=== PATIENT | male | born 1960 | race Caucasian/White ===

== ENCOUNTER 2017-12-22 13:43 | Inpatient (IN) | payer MEDICARE, MEDICAID ==
--- NOTE | 2017-12-22 14:25 | ED Physician Chart ---
ED Chief Complaint/HPI - Patient Information Date Seen:: 12/22/17 Time Seen:: 13:50 Chief Complaint:: Agitation History of Present Illness:: onset x 3 days of agitation and hostile behavior; no report of SIs, H/As, trauma , neck pain, C/P, SOB, Abd. Pain, fever, chills, A/N/V/D/C, or urinary s/s Allergies:: Allergies Allergy/AdvReac Type Severity Reaction Status Date / Time No Known Allergies Allergy Verified 05/31/16 16:44 Vitals:: Vital Signs - 8 hr 12/22/17 13:49 Temp 97.6 F HR 67 RR 16 BP 149/91 O2 Sat % 98 Historian:: Patient, EMS Review:: Nurse's Note Reviewed, EMS run form Reviewed ED Review of Systems - Review of Systems General/Constitutional: No fever, No chills, No weight loss, No weakness, No diaphoresis, No edema, No loss of appetite Skin: No skin lesions, No rash, No bruising Head: No headache, No light-headedness Eyes: No loss of vision, No pain, No diplopia ENT: No earache, No nasal drainage, No sore throat, No tinnitus Neck: No neck pain, No swelling, No thyromegaly, No stiffness, No mass noted Cardio Vascular: No chest pain, No palpitations, No PND, No orthopnea, No edema Pulmonary: No SOB, No cough, No sputum, No wheezing GI: No nausea, No vomiting, No diarrhea, No pain, No melena, No hematochezia, No constipation, No hematemesis G/U: No dysuria, No frequency, No hematuria, No nacturia Musculoskeletal: No bone or joint pain, No back pain, No muscle pain Endocrine: No polyuria, No polydipsia Psychiatric: Prior psych history, No depression, No anxiety, No suicidal ideation, No homicidal ideation, Auditory hallucination, No visual hallucination Hematopoietic: No bruising, No lymphadenopathy Allergic/Immuno: No urticaria, No angioedema Neurological: No syncope, No focal symptoms, No weakness, No paresthesia, No headache, No seizure, No dizziness, No confusion, No vertigo ED Past Medical History - Past Medical History Obtainable: Yes Past Medical History: HTN, DM, Dyslipidemia, PUD/GERD, Dementia Family History: Diabetes Melitus, HTN Social History: Non Smoker, No Alcohol, No Drug Use, Single, Care Facility Surgical History: None Psychiatricy History: Schizophrenia, Bipolar, Dementia Medication: Reviewed Family Medical History - Family Member Mother History Unknown: Yes Ethnicity: Unknown Living Status: Unknown ED Physical Exam - Physical Examination General/Constitutional: Awake, Well-developed, well-nourished, Alert, No distress, GCS 15, Non-toxic appearing, Ambulatory Head: Atraumatic Eyes: Lids, conjuctiva normal, PERRL, EOMI Skin: Nl inspection, No rash, No skin lesions, No ecchymosis, Well hydrated, No lymphadenopathy ENMT: External ears, nose nl, TM canals nl, Nasal exam nl, Lips, teeth, gums nl , Oropharynx nl, Tonsils nl Neck: Nontender, Full ROM w/o pain, No JVD, No nuchal rigidity, No bruit, No mass, No stridor Respiratory: Nl effort/Exclusion, Clear to Auscultation, No Wheeze/Rhonchi/Rales Cardio Vascular: RRR, No murmur, gallop, rubs, NL S1 S2, Carotid/Femoral/Distal pulses equal bilaterally GI: No tenderness/rebounding/guarding, No organomegaly, No hernia, Normal BS's, Nondistended, No mass/bruits, No McBurney tenderness : No CVA tenderness Extremities: No tenderness or effusion, Full ROM, normal strength in all extremities, No edema, Normal digits & nails Neuro/Psych: DTR's symmetric, Normal sensory exam, Normal motor strength, Mood normal, Normal gait, No focal deficits Other Neuro/Psych comments:: + Psychomotor Agitation; no SIS; Disoriented and Confused Misc: Normal back, No paraspinal tenderness ED Labs/Radiology/EKG Results - Lab Results Comments:: Glucose: 291; Na+: 130 - EKG Interpretations EKG Time:: 14:41 Rate & Rhythm: 72; NSR Comments:: LAD; non-specific st-t changes ED Septic Shock - . Is Septic Shock (SBP<90, OR Lactate>4 mmol\L) present?: No - <6hrs of presentation: Vital Signs: Vital Signs - 8 hr 12/22/17 13:49 Temp 97.6 F HR 67 RR 16 BP 149/91 O2 Sat % 98 ED Reassessment (Disposition) - Reassessment Reassessment Condition:: Improved - Diagnosis Diagnosis:: Hyperglycemia; Agitation; Bipolar Disorder; Hyponatremia; DM; Affective Disorder - Aftercare/Follow up Instructions Aftercare/Follow-Up Instructions:: Counseled pt regarding lab results/diagnosis & need follow up, Counseled pt & family regarding lab results/diagnosis & need follow up - Patient Disposition Discharge/Transfer:: Acute Care w/in this hosp Admitted to:: [facility] Condition at Disposition:: Stable, Improved ED Discharge Plan - Patient Disposition Admit/Discharge/Transfer: Acute Care w/in this hosp Condition at Disposition: Stable
[2017-12-22 14:49] LABS: URINE SOURCE CLEAN C
[2017-12-22 14:57] LABS: % BASOPHILS 0.3 % (0.0-2.0); % EOSINOPHILS 2.3 % (0.0-5.0); % LYMPHOCYTES 29.3 % (20.0-50.0); % MONOCYTES 14.2 % (2.0-10.0); % NEUTROPHILS 53.9 % (40.0-80.0); EOSINOPHILE ABSOLUTE 0.2 Th/cmm (0.1-0.4); HEMATOCRIT 44.8 % (41.0-60); LYMPHOCYTE ABSOLUTE 1.9 Th/cmm (1.5-3.0); MEAN CELL VOLUME 93.1 fl (80-99); MEAN CORPUSCULAR HEMOGLOBIN 31.1 pg (26.0-30.0); MEAN CORPUSCULAR HGB CONC 33.4 pg (28.0-36.0); MEAN PLATELET VOLUME 7.1 fl; MONOCYTE ABSOLUTE 0.9 Th/cmm (0.3-1.0); NEUTROPHILE ABSOLUTE 3.6 Th/cmm (1.8-8.0); RED BLOOD COUNT 4.81 Mil/cmm (4.30-5.70); RED CELL DISTRIBUTION WIDTH 13.2 % (11.5-20.0); WHITE BLOOD COUNT 6.6 Th/cmm (4.8-10.8)
[2017-12-22 15:10] LABS: PLATELET COUNT 146 Th/cmm (150-400)
[2017-12-22 15:13] LABS: URINE BILIRUBIN NEGATIVE (NEGATIVE); URINE BLOOD NEGATIVE (NEGATIVE); URINE GLUCOSE (UA) >=1000 mg/dL (NEGATIVE); URINE KETONE 15 mg/dL (NEGATIVE); URINE LEUKOCYTE ESTERASE NEGATIVE (NEGATIVE); URINE NITRATE NEGATIVE (NEGATIVE); URINE PH 6.5 (4.6 - 8.0); URINE PROTEIN NEGATIVE (NEGATIVE); URINE UROBILINOGEN 0.2 E.U./dL (0.2 - 1.0)
[2017-12-22 15:17] LABS: ACETAMINOPHEN < 10.0 ug/mL (10.0-30.0); ALB/GLOB RATIO 1.1 (1.0-1.8); ALBUMIN 3.7 gm/dL (4.2-5.5); ALKALINE PHOSPHATASE 56 U/L (34-104); ANION GAP 11.6 (7.0-16.0); BILIRUBIN,TOTAL 0.5 mg/dL (0.3-1.0); BUN - UREA NITROGEN 8 mg/dL (7-25); CALCIUM SERUM 9.4 mg/dL (8.6-10.3); CARBON DIOXIDE 27.1 mEq/L (21.0-31.0); CHLORIDE 96 mEq/L (98-107); CHOLESTEROL 105 mg/dL (<200); CREATININE - SERUM 0.6 mg/dL (0.7-1.3); GFR AFRICAN-AMERICAN > 60.0 ml/min (>90); GFR NON AFRICAN-AMERICAN > 60.0 ml/min; GLUCOSE 291 mg/dL (70-105); HDL -HIGH DENSITY LIPOPROTEIN 39 mg/dL (23-92); POTASSIUM SERUM 4.7 mEq/L (3.5-5.1); SGOT 16 U/L (13-39); SGPT/ALT 13 U/L (7-52); SODIUM SERUM 130 mEq/L (136-145); TRIGLYCERIDES 101 mg/dL (<150)
[2017-12-22 15:20] LABS: SALICYLATES (ASPIRIN) < 25.0 mg/L (30.0-100.0)
[2017-12-22 15:22] LABS: AMPHETAMINE URINE NEGATIVE (NEGATIVE); BARBITURATES URINE NEGATIVE (NEGATIVE); BENZODIAZEPINES QUAL URINE NEGATIVE (NEGATIVE); CANNABINOID THC NEGATIVE (NEGATIVE); COCAINE METABOLITE QUAL URINE NEGATIVE (NEGATIVE); METHADONE URINE NEGATIVE (NEGATIVE); METHAMPHETAMINES QUAL URINE NEGATIVE (NEGATIVE); OPIATES (MORPHINE) QUAL. URINE NEGATIVE (NEGATIVE); PHENCYCLIDINE (PCP) URINE NEGATIVE (NEGATIVE); TRICYCLICS (TCA) QUAL. URINE NEGATIVE (NEGATIVE)
[2017-12-22 15:51] LABS: URINE COLOR YELLOW
[2017-12-22 15:53] LABS: URINE MICROSCOPIC INDICATED? YES
[2017-12-22 15:57] LABS: URINE CLARITY HAZY (CLEAR)
[2017-12-22 15:58] LABS: URINE BACTERIA FEW /hpf (NONE SEEN); URINE EPITHELIAL CELLS OCCASIONAL /lpf (FEW); URINE RBC 0-2 /hpf (0-5)
[2017-12-22] MEDS ORDERED: INSULIN ASPART, RECOMBINANT 100 UNITS/ML SUBQ ONE (17:00)
[2017-12-22 17:14] VITALS: BP 143/97
[2017-12-22] MEDS ORDERED: Magnesium Hydroxide (MOM) 30 mL UDC PO PRN (17:14)
[2017-12-22] MEDS ORDERED: Maalox 30 mL Cup PO PRN (17:14)
[2017-12-22 19:32] LABS: A1C % 9.1 % (4.0-6.0)
[2017-12-22] MEDS: INSULIN ASPART SLIDING SCALE 100 UNITS/ML UNIT SUBQ SCH (20:38)
[2017-12-23] MEDS: INSULIN ASPART SLIDING SCALE 100 UNITS/ML UNIT SUBQ SCH ×4 (06:30→21:07)
[2017-12-23] MEDS ORDERED: Magnesium Hydroxide (MOM) 30 mL UDC PO PRN (09:28)
--- NOTE | 2017-12-23 10:30 | History & Physical ---
ADMIT DATE: 12/23/2017 INTERNAL MEDICINE CONSULT REFERRING PHYSICIAN: Dr. Franz. REASON FOR CONSULT: Medical management, history of diabetes, hypertension, hyperlipidemia, seizures, CVA. HISTORY OF PRESENT ILLNESS: The patient is a 57-year-old gentleman who has been admitted to this facility in the past with multiple medical problems including a history of CVA/aneurysm, seizure disorder, dementia, likely vascular, diabetes, hyperlipidemia, and generalized muscle weakness who was transferred from [facility] secondary to agitation and aggressive behavior. PERTINENT FINDINGS ON ADMISSION: Include a sodium of 130, glucose of 291 with A1c of 9.1. UA also showed glucose with some ketones, but was negative for UTI. The patient has been [facility] for management and care. The patient is able to answer simple questions and is currently not agitated. He is somewhat forgetful, but again is able to answer basic questions. He currently denies any chest pain, palpitations, any shortness of breath or any headaches. PAST MEDICAL HISTORY: As noted above, subarachnoid hemorrhage as noted above, major depressive disorder, previous history of thrombocytopenia per records. Vascular dementia with behavioral disturbance, also history of diabetes mellitus with previous ketoacidosis, acid reflux disease, chronic hyponatremia and hypothyroidism. PAST SURGICAL HISTORY: Includes craniotomy. FAMILY HISTORY: Noncontributory to this admission. SOCIAL HISTORY: Denies any tobacco, ETOH or illicit drug usage. He currently lives at [facility]. ALLERGIES: NKDA. OUTPATIENT MEDICATIONS: Depakote 750 b.i.d., docusate sodium 100 mg b.i.d., Pepcid 20 mg every day, Levemir 30 units at bedtime and 40 units in the morning, Lipitor 40 every day or at bedtime, lisinopril 5 mg every day, Glucophage 50 three times a day, magnesium hydroxide p.r.n. for constipation, Seroquel 50 mg every day, sodium chloride tablet 1 gram 3 times a day, Synthroid 88 mcg every day, Tylenol 650 every 4 hours p.r.n. for pain. REVIEW OF SYSTEMS: CONSTITUTIONAL: The patient denies any fever, chills, any recent weight loss. CARDIOVASCULAR: He denies any angina type or angina chest pain. PULMONARY: No cough, no phlegm production. GASTROINTESTINAL: No bowel habit changes including no diarrhea or constipation. Denies any nausea, vomiting. GENITOURINARY: No bladder habit changes including no polyuria or UTI symptomatology. NEUROLOGIC: No changes in vision. Denies any headaches. Denies any syncope. MUSCULOSKELETAL: States he was left somewhat weakened after the stroke, but currently states he can do "everything." Ambulates around with no difficulty. PHYSICAL EXAMINATION: VITAL SIGNS: Temperature 96.2, pulse 77, respirations 20, BP 143/97, satting 98% on room air. GENERAL: He is a well-developed, well-nourished male, somewhat groggy and somnolent, but able to answer questions appropriately. He is currently sitting at the dinner table. He is arousable, awake, alert and oriented x 2. HEAD AND NECK: Normocephalic, atraumatic. Pupils reactive to light. NECK: There is no JVD or LAD. CARDIAC: Regular rate and rhythm with distant sounds. No murmurs, gallops or rubs are noted. LUNGS: Clear to auscultation bilaterally. ABDOMEN: Soft, supple, nontender, nondistended, normoactive bowel sounds. EXTREMITIES: Lower Extremities: There is trace edema on both lower extremities. NEUROLOGIC: Difficult to assess, but cranial nerves 2-12 roughly within normal limits. LABORATORY DATA: White count 6.6, H and H 15/44 with a platelet count of 146. Sodium 130, potassium 4.7, chloride 96, BUN 8, creatinine 0.6, glucose 291. A1c is 9.1. Rest of the chemistries were within normal limits. Albumin 3.7, LDL 55, HDL 39, cholesterol 105, triglycerides 101. TSH 1.31. A urinalysis shows positive for glucose and ketones, otherwise within normal limits. Urine tox was essentially within normal limits. DIAGNOSTICS: There was an EKG showing normal sinus rhythm at the rate of 72. IMPRESSION: 1. Acute psych decompensation. 2. History of vascular dementia with behavioral disorder. 3. History of CVA/subarachnoid hemorrhage, status post craniotomy. 4. Diabetes, out of control/elevated HgA1c. 5. Chronic hyponatremia. 6. History of seizure disorder. 7. History of hyperlipidemia. 8. History of generalized muscle weakness with gait and mobility disorder. 9. History of major depressive disorder. 10. Hypertension. PLAN: The patient is admitted to [facility] for further management and care. He will be kept on his current medications as scheduled. I have talked to the patient in regards to his lab results including his elevated A1c and he is agreeable for insulin adjustment. The patient will be kept on insulin sliding scale with Accu-Cheks and he will be followed on a daily basis. As far as his hypertension, he will be kept on lisinopril 5 mg every day. If need be it will be increased. JOB# [id number] MTDD
[2017-12-23] MEDS: Multivitamin Tab PO SCH (11:54)
[2017-12-23] MEDS: Divalproex DR 500 MG, Divalproex DR 250 MG PO SCH ×2 (11:55→16:33)
--- NOTE | 2017-12-24 00:24 | Psychosocial Evaluation ---
DATE OF SERVICE: 12/22/2017 CHIEF COMPLAINT: "I am fine." HISTORY OF PRESENT ILLNESS: The patient is a 57-year-old male with a history of schizoaffective disorder, transferred from his [place] [facility] facility for increased agitation, anger outburst, having yelling episodes, becoming difficult to redirect, attempting to hit other residents. The patient at this time denied feeling depressed, he said he has been taking his medications, did not want to answers to many questions said he was having lunch. PAST PSYCHIATRIC HISTORY: Multiple hospitalizations, history of bipolar disorder, possible schizoaffective disorder. CURRENT MEDICATION: Reviewed. PSYCHOSOCIAL HISTORY: The patient resides at [facility] and requires complete care. PAST MEDICAL HISTORY: Medically cleared in ER. Refer to H and P. MENTAL STATUS EXAMINATION: The patient is oriented to time, place and person, knows his age. His speech is rapid at times. Affect is dysphoric, labile. The patient appears to have somewhat paranoid, but is denying auditory hallucinations. The patient's strength: The patient is accepting treatment. The patient's weakness, lack of a poor impulse control. ASSESSMENT: Bipolar disorder. MEDICAL: As in medical history. Stressors are severe. PLAN: We will admit the patient for hospitalization. We will start individual and group therapy and assess psychopharmacological intervention. ESTIMATED LENGTH OF STAY: 7 days. CRITERIA FOR DISCHARGE: Improved condition. Safe disposition, outpatient treatment plan. The patient will not be aggressive or agitated. [facility]# [id number]
[2017-12-24] MEDS: INSULIN ASPART SLIDING SCALE 100 UNITS/ML UNIT SUBQ SCH ×4 (06:45→20:49)
[2017-12-24] MEDS: Levothyroxine 0.088 Mg Tab PO SCH (06:46)
[2017-12-24] MEDS: Divalproex DR 500 MG, Divalproex DR 250 MG PO SCH ×2 (09:37→17:49)
[2017-12-24] MEDS: Multivitamin Tab PO SCH (09:38)
--- NOTE | 2017-12-24 19:09 | Progress Notes ---
DATE: 12/24/2017 SUBJECTIVE: The patient was seen, discussed with staff, chart reviewed. Still superficial; however, he continues to have some anger outburst. He remains paranoid, suspicious surroundings. The patient is taking his medication at this time. His appetite and sleep are fair. ASSESSMENT: The patient in psychotic phase, still labile and continues to have some anger outburst. PLAN: Continue stabilization, continue hospitalization and monitor closely. JOB# [id number]
[2017-12-25] MEDS: INSULIN ASPART SLIDING SCALE 100 UNITS/ML UNIT SUBQ SCH ×4 (06:30→21:21)
[2017-12-25] MEDS: Levothyroxine 0.088 Mg Tab PO SCH (06:41)
[2017-12-25] MEDS: Multivitamin Tab PO SCH (09:01)
[2017-12-25] MEDS: Divalproex DR 500 MG, Divalproex DR 250 MG PO SCH ×2 (09:01→17:19)
[2017-12-25] MEDS ORDERED: Haloperidol Lactate 5 mg/mL 1mL Vial ONE (11:49)
[2017-12-25] MEDS ORDERED: Haloperidol Lactate 5 mg/mL 1mL Vial IM ONE (12:00)
--- NOTE | 2017-12-25 22:30 | Progress Notes ---
DATE: 12/25/2017 SUBJECTIVE: The patient was seen, still paranoid, angry, still easily agitated, continues to have some anger outburst. The patient required being given emergency medications for yelling and striking other patients. ASSESSMENT: The patient is still impulsive, still agitated, still requires inpatient hospitalization. PLAN: We will continue to monitor closely. Continue supportive measures. Continue medication management. JOB# [id number]
[2017-12-26] MEDS: INSULIN ASPART SLIDING SCALE 100 UNITS/ML UNIT SUBQ SCH ×4 (06:42→22:29)
[2017-12-26] MEDS: Levothyroxine 0.088 Mg Tab PO SCH (06:49)
[2017-12-26] MEDS: Divalproex DR 500 MG, Divalproex DR 250 MG PO SCH ×2 (08:37→17:06)
[2017-12-26] MEDS: Multivitamin Tab PO SCH (08:38)
[2017-12-26] MEDS ORDERED: Haloperidol Lactate 5 mg/mL 1mL Vial ONE (13:05)
[2017-12-26] MEDS ORDERED: Haloperidol Lactate 5 mg/mL 1mL Vial IM ONE (13:10)
--- NOTE | 2017-12-26 20:30 | Progress Notes ---
DATE: 12/26/2017 SUBJECTIVE: The patient was seen, chart reviewed. Still anxious, angry, still irritable, having some anger outbursts. The patient remains highly paranoid and is hearing voices at times. ASSESSMENT: The patient still in psychotic phase. PLAN: Will continue stabilization. Continue medication management. We will increase Seroquel to 100 mg p.o. at bedtime. [facility]# [id number]
[2017-12-27] MEDS: INSULIN ASPART SLIDING SCALE 100 UNITS/ML UNIT SUBQ SCH ×4 (06:35→21:41)
[2017-12-27] MEDS: Levothyroxine 0.088 Mg Tab PO SCH (06:40)
[2017-12-27] MEDS: Divalproex DR 500 MG, Divalproex DR 250 MG PO SCH ×2 (10:00→17:10)
[2017-12-27] MEDS: Multivitamin Tab PO SCH (10:00)
--- NOTE | 2017-12-27 15:18 | Progress Notes ---
DATE: 12/27/2017 SUBJECTIVE: The patient was seen, chart reviewed. Still angry, irritable, some episodes of yelling at staff for no apparent reason, admits hearing voices. The patient is taking his medications, appears to be slightly sedated at this time, has slight sedation, but no EPS. ASSESSMENT: The patient continues to be in psychotic phase. PLAN: Continue hospitalization and monitor closely. Continue supportive measures. Monitor for increased sedation. [facility]# [id number]
[2017-12-28] MEDS: INSULIN ASPART SLIDING SCALE 100 UNITS/ML UNIT SUBQ SCH ×4 (06:33→21:15)
[2017-12-28] MEDS: Levothyroxine 0.088 Mg Tab PO SCH (06:33)
[2017-12-28] MEDS: Divalproex DR 500 MG, Divalproex DR 250 MG PO SCH ×2 (09:31→17:21)
[2017-12-28] MEDS: Multivitamin Tab PO SCH (09:32)
--- NOTE | 2017-12-28 15:10 | Progress Notes ---
DATE: 12/28/2017 SUBJECTIVE: I met this patient today. Remains irritable, still having anger outburst, some agitation, some yelling episodes. The patient continues to struggle with impulse control, admits to having auditory hallucinations. ASSESSMENT: The patient is still in psychotic phase. PLAN: Continue stabilization. Continue medication management. Continue Seroquel 100 mg p.o. bedtime. Consider increasing dose further more over the next 1-2 days. The patient is also on Depakote 750 mg p.o. b.i.d. JOB# [id number]
[2017-12-29] MEDS: Levothyroxine 0.088 Mg Tab PO SCH (06:46)
[2017-12-29] MEDS: INSULIN ASPART SLIDING SCALE 100 UNITS/ML UNIT SUBQ SCH ×4 (06:46→20:50)
[2017-12-29] MEDS: Divalproex DR 500 MG, Divalproex DR 250 MG PO SCH ×2 (09:41→17:43)
[2017-12-29] MEDS: Multivitamin Tab PO SCH (09:43)
--- NOTE | 2017-12-29 22:21 | Progress Notes ---
DATE: 12/29/2017 SUBJECTIVE: Staff was spoken to. The patient is interviewed. Mood is noted to be irritable. Affect is constricted. Insight and judgment at this time are noted to be impaired. Impulse control seems to be poor. The patient's coping skills are noted to very poor. The patient is isolative and withdrawn. No side effects to the medications are noted. The patient is currently on Depakote 750 mg twice a day along with Seroquel 100 mg at bedtime. The patient is stating that the medications are of some help to him. Continues to have paranoia, but denies any command hallucinations. No side effects to the medications are noted. ASSESSMENT: The patient is still having mood swings. PLAN: To continue the patient with the current medications and encourage the patient to verbalize the concerns rather than to act out. JOB# [id number]
[2017-12-30] MEDS: Levothyroxine 0.088 Mg Tab PO SCH (06:53)
[2017-12-30] MEDS: INSULIN ASPART SLIDING SCALE 100 UNITS/ML UNIT SUBQ SCH ×4 (06:56→20:27)
[2017-12-30] MEDS: Divalproex DR 500 MG, Divalproex DR 250 MG PO SCH ×2 (09:47→16:35)
[2017-12-30] MEDS: Multivitamin Tab PO SCH (09:48)
[2017-12-30] MEDS: Insulin Detemir 100 units/mL 10mL Vial SUBQ SCH (10:38)
--- NOTE | 2017-12-31 02:50 | Progress Notes ---
DATE: 12/30/2017 PSYCHIATRIC PROGRESS NOTE SUBJECTIVE: Staff was spoken to. The patient is interviewed. Mood is noted to be less irritable. The patient is isolative and withdrawn. Coping skills are noted to be improving. The patient's mood swings are coming under control. No side effects to medications are noted. The patient is currently on Depakote and the Seroquel and has been able to tolerate the medication. ASSESSMENT: The patient's psychosis is resolving. PLAN: To continue the patient with the current medications. I encouraged the patient to verbalize the concerns rather than to act out. JOB# [id number]
[2017-12-31] MEDS: INSULIN ASPART SLIDING SCALE 100 UNITS/ML UNIT SUBQ SCH ×4 (06:33→21:40)
[2017-12-31] MEDS: Levothyroxine 0.088 Mg Tab PO SCH (06:34)
[2017-12-31] MEDS: Divalproex DR 500 MG, Divalproex DR 250 MG PO SCH ×2 (09:15→16:51)
[2017-12-31] MEDS: Multivitamin Tab PO SCH (09:16)
[2017-12-31] MEDS: Insulin Detemir 100 units/mL 10mL Vial SUBQ SCH (09:17)
--- NOTE | 2017-12-31 15:24 | Progress Notes ---
DATE: 12/31/2017 SUBJECTIVE: Staff was spoken to. The patient is interviewed. Mood is noted to be irritable. Affect is constricted. The patient is getting easily frustrated. The patient has been currently on valproic acid 750 mg b.i.d. and Seroquel 100 mg at bedtime and has been able to tolerate the medication. No side effects to the medications are noted. ASSESSMENT: The patient is here yanes and impulsive today. PLAN: To continue the patient with the current medications and followup. JOB# [id number]
[2018-01-01] MEDS: INSULIN ASPART SLIDING SCALE 100 UNITS/ML UNIT SUBQ SCH ×4 (06:30→20:55)
[2018-01-01] MEDS: Levothyroxine 0.088 Mg Tab PO SCH (06:30)
[2018-01-01] MEDS: Multivitamin Tab PO SCH (08:28)
[2018-01-01] MEDS: Divalproex DR 500 MG, Divalproex DR 250 MG PO SCH ×2 (08:29→16:33)
[2018-01-01] MEDS: Insulin Detemir 100 units/mL 10mL Vial SUBQ SCH ×2 (08:31→20:56)
--- NOTE | 2018-01-02 03:40 | Progress Notes ---
DATE: 01/01/2018 PSYCHIATRIC PROGRESS NOTE SUBJECTIVE: Staff was spoken to. Patient is interviewed. Mood is noted to be irritable. Affect is constricted. The patient is unpredictable and has been getting out of the bed, screaming and yelling with no provocation, then the patient calms down. The patient is not able to contract for safety today and hence he is not able to be discharged to a lower level of care. The patient is currently on 750 mg of Depakote and I am going to be requesting for a Depakote level. Staffs are spoken to and they have been informed about the blood work that needs to be done tomorrow morning. JOB# [id number]
[2018-01-02] MEDS: Levothyroxine 0.088 Mg Tab PO SCH (06:39)
[2018-01-02] MEDS: INSULIN ASPART SLIDING SCALE 100 UNITS/ML UNIT SUBQ SCH ×4 (07:02→21:13)
[2018-01-02] MEDS: Divalproex DR 500 MG, Divalproex DR 250 MG PO SCH ×2 (09:13→16:28)
[2018-01-02] MEDS: Multivitamin Tab PO SCH (09:14)
[2018-01-02] MEDS: Insulin Detemir 100 units/mL 10mL Vial SUBQ SCH (21:11)
--- NOTE | 2018-01-03 03:20 | Progress Notes ---
DATE: 01/02/2018 SUBJECTIVE: Staff was spoken to. The patient is interviewed. Mood is noted to be irritable. Affect is constricted. Coping skills are noted to be still poor. The patient is screaming and yelling for no reason. The patient has no insight into his illness. PLAN: The patient is currently on Depakote and Seroquel and has been able to tolerate the medications. Valproic acid level is noted to be 64.7. In view of his agitation and psychosis, it is decided to increase the dose on the Seroquel to 150 mg at bedtime and follow the patient up with supportive therapy. JOB# [id number]
[2018-01-03] MEDS: Levothyroxine 0.088 Mg Tab PO SCH (06:49)
[2018-01-03] MEDS: INSULIN ASPART SLIDING SCALE 100 UNITS/ML UNIT SUBQ SCH ×4 (06:50→21:03)
[2018-01-03] MEDS: Multivitamin Tab PO SCH (08:50)
[2018-01-03] MEDS: Divalproex DR 500 MG, Divalproex DR 250 MG PO SCH ×2 (08:50→17:18)
[2018-01-03] MEDS: Insulin Detemir 100 units/mL 10mL Vial SUBQ SCH (21:05)
--- NOTE | 2018-01-03 22:02 | Progress Notes ---
DATE: 01/03/2018 SUBJECTIVE: Staff was spoken to. The patient is interviewed. Mood is noted to be irritable. Affect is constricted. Insight and judgment are noted to be still impaired. Impulse control seems to be poor. The patient has been screaming and yelling and has been going off on the staff members. The patient could not be contained at this time. The patient has been currently on Seroquel, which was increased to 150 mg at bedtime and the patient is closely going to be monitored at this time. If the patient continues to be out of control like this patient might need an injection to contain his aggressive behavior. PLAN: To closely monitor the patient. I encourage him to verbalize the concerns rather than to act out. The patient is not ready to be discharged to a lower level of care yet. JOB# [id number]
[2018-01-04] MEDS: Levothyroxine 0.088 Mg Tab PO SCH (06:43)
[2018-01-04] MEDS: INSULIN ASPART SLIDING SCALE 100 UNITS/ML UNIT SUBQ SCH ×4 (06:44→21:09)
[2018-01-04] MEDS: Divalproex DR 500 MG, Divalproex DR 250 MG PO SCH ×2 (09:20→16:42)
[2018-01-04] MEDS: Multivitamin Tab PO SCH (09:20)
[2018-01-04] MEDS: Insulin Detemir 100 units/mL 10mL Vial SUBQ SCH (21:06)
[2018-01-05] MEDS: INSULIN ASPART SLIDING SCALE 100 UNITS/ML UNIT SUBQ SCH ×2 (06:41→12:05)
[2018-01-05] MEDS: Levothyroxine 0.088 Mg Tab PO SCH (06:41)
[2018-01-05] MEDS: Divalproex DR 500 MG, Divalproex DR 250 MG PO SCH (08:44)
[2018-01-05] MEDS: Multivitamin Tab PO SCH (08:44)
--- NOTE | 2018-01-06 01:09 | Progress Notes ---
DATE: 01/05/2018 PSYCHIATRIC PROGRESS NOTE SUBJECTIVE: Staff was spoken to. The patient is interviewed. Mood is noted to be anxious. Affect is appropriate. Impulsivity is under control. Insight and judgment are also noted to be under control. No side effects to the medications are noted. The patient has been able to tolerate the valproic acid and Seroquel and it is decided to discharge the patient today since he has been doing fairly well. [facility]# [id number]
== END 2018-01-05 14:11 | disposition home or self-care (01) | DRG 885 ==
LOC: ER 13:43 → GERO 16:28
PROVIDERS: ADMIT Psychiatry & Neurology Psychiatry; ATTEND Psychiatry & Neurology Psychiatry
DX: F31.9 Bipolar disorder, unspecified (principal); F01.51 Vascular dementia, unspecified severity, with behavioral disturbance; E11.65 Type 2 diabetes mellitus with hyperglycemia; E87.1 Hypo-osmolality and hyponatremia; F23 Brief psychotic disorder; G40.909 Epilepsy, unspecified, not intractable, without status epilepticus; E78.5 Hyperlipidemia, unspecified; R26.9 Unspecified abnormalities of gait and mobility; I10 Essential (primary) hypertension; K21.9 Gastro-esophageal reflux disease without esophagitis; E03.9 Hypothyroidism, unspecified; R45.1 Restlessness and agitation; Z86.73 Personal history of transient ischemic attack (TIA), and cerebral infarction without residual deficits
CPT/HCPCS: 36415-UA; 80053-TC; 80061-TC; 80164-TC; 80307; 80320-TC; 80329-TC; 81001-TC; 82947-TC; 82948-90; 83036-90; 84443-TC; 85025-TC; 86592-TC; 90899; 93005; G0410; J1200; J1630; J1815; J2060; Z7610

== ENCOUNTER 2018-03-12 17:18 | Inpatient (IN) | payer MEDICARE, MEDICAID ==
--- NOTE | 2018-03-12 17:44 | ED Physician Chart ---
ED Chief Complaint/HPI - Patient Information Date Seen:: 03/12/18 Time Seen:: 17:35 Chief Complaint:: increased agitation History of Present Illness:: Patient has exhibited increased agitation and has attempted to strike the staff. Allergies:: Allergies Allergy/AdvReac Type Severity Reaction Status Date / Time No Known Allergies Allergy Verified 05/31/16 16:44 Historian:: Patient Review:: Nurse's Note Reviewed, Transfer documents Reviewed ED Review of Systems - Review of Systems General/Constitutional: No fever, No chills, No weight loss, No weakness, No diaphoresis, No edema, No loss of appetite Skin: No skin lesions, No rash, No bruising Head: No headache, No light-headedness Eyes: No loss of vision, No pain, No diplopia ENT: No earache, No nasal drainage, No sore throat, No tinnitus Neck: No neck pain, No swelling, No thyromegaly, No stiffness, No mass noted Cardio Vascular: No chest pain, No palpitations, No PND, No orthopnea, No edema Pulmonary: No SOB, No cough, No sputum, No wheezing GI: No nausea, No vomiting, No diarrhea, No pain, No melena, No hematochezia, No constipation, No hematemesis G/U: No dysuria, No frequency, No hematuria Musculoskeletal: No bone or joint pain, No back pain, No muscle pain Endocrine: No polyuria, No polydipsia Psychiatric: Prior psych history Hematopoietic: No bruising, No lymphadenopathy Allergic/Immuno: No urticaria, No angioedema Neurological: No syncope, No focal symptoms, No weakness, No paresthesia, No headache, No seizure, No dizziness, No confusion, No vertigo ED Past Medical History - Past Medical History Past Medical History: HTN, DM, Dyslipidemia, PUD/GERD, Seizures, Thyroid disorder, Other (status post subarachnoid hemorrhage; hypothyroidism; lipidemia gastroesophageal reflux disease; cholesterolemia; vascular dementia; major depression;, cytopenia) Family History: Diabetes Melitus, Other (both parents had heart disease) Social History: Non Smoker, No Alcohol Surgical History: other (craniotomy) Psychiatricy History: Other (psychosis) Medication: Reviewed Family Medical History - Family Member Mother History Unknown: Yes Ethnicity: Unknown Living Status: Unknown ED Physical Exam - Physical Examination General/Constitutional: Awake, Well-developed, well-nourished, Alert, No distress, GCS 15, Non-toxic appearing, Ambulatory Other Gen/Cons comments:: Patient is alert and oriented to the correct month and year but not the date. Head: Atraumatic Eyes: Lids, conjuctiva normal, PERRL, EOMI Skin: Nl inspection, No rash, No skin lesions, No ecchymosis, Well hydrated, No lymphadenopathy ENMT: External ears, nose nl, Nasal exam nl, Lips, teeth, gums nl Other ENMT comments:: Edentulous Neck: Nontender, Full ROM w/o pain, No JVD, No nuchal rigidity, No bruit, No mass, No stridor Respiratory: Nl effort/Exclusion Other Respiratory comments:: Basilar rales and end-inspiratory wheezing Cardio Vascular: RRR, No murmur, gallop, rubs, NL S1 S2 GI: No tenderness/rebounding/guarding, No organomegaly, No hernia, Normal BS's, Nondistended, No mass/bruits, No McBurney tenderness : No CVA tenderness Extremities: No tenderness or effusion, Full ROM, normal strength in all extremities, No edema, Normal digits & nails Neuro/Psych: Alert/oriented, DTR's symmetric, Normal sensory exam, Normal motor strength, Judgement/insight normal, Mood normal, Normal gait, No focal deficits Misc: Normal back, No paraspinal tenderness ED Labs/Radiology/EKG Results - Lab Results Results: Laboratory Results - last 24 hr 03/12/18 03/12/18 18:13 18:13 WBC 6.5 RBC 5.32 Hgb 16.3 Hct 50.1 MCV 94.1 MCH 30.6 H MCHC Differential 32.5 RDW 13.5 Plt Count 147 L MPV 7.4 Neutrophils % 42.7 Lymphocytes % 41.9 Monocytes % 11.4 H Eosinophils % 3.4 Basophils % 0.6 Sodium 137 Potassium 3.9 Chloride 102 Carbon Dioxide 24.6 Anion Gap 14.3 BUN 15 Creatinine 0.7 Est GFR ( Amer) > 60.0 Est GFR (Non-Af Amer) > 60.0 BUN/Creatinine Ratio 21.4 Glucose 56 L Calcium 9.8 Total Bilirubin 0.5 AST 14 ALT 11 Alkaline Phosphatase 58 Total Protein 7.9 Albumin 4.4 Globulin 3.5 Albumin/Globulin Ratio 1.3 Triglycerides 147 Cholesterol 140 LDL Cholesterol Direct 77 HDL Cholesterol 41 - EKG Interpretations Rate & Rhythm: normal sinus rhythm with a rate of 84 [place]: left axis deviation Comments:: Q waves in leads 3 and aVF ED Septic Shock - . Is Septic Shock (SBP<90, OR Lactate>4 mmol\L) present?: No ED Reassessment (Disposition) - Reassessment Reassessment Condition:: Unchanged - Diagnosis Diagnosis:: Agitation; major depression - Patient Disposition Admitting Medical Physician:: Marcello Spears Admitting Psych Physician:: Bertha Franz Condition at Disposition:: Stable, Unchanged
[2018-03-12 18:23] LABS: % BASOPHILS 0.6 % (0.0-2.0); % EOSINOPHILS 3.4 % (0.0-5.0); % LYMPHOCYTES 41.9 % (20.0-50.0); % MONOCYTES 11.4 % (2.0-10.0); % NEUTROPHILS 42.7 % (40.0-80.0); EOSINOPHILE ABSOLUTE 0.2 Th/cmm (0.1-0.4); HEMATOCRIT 50.1 % (41.0-60); HEMOGLOBIN 16.3 gm/dL (12-16); LYMPHOCYTE ABSOLUTE 2.7 Th/cmm (1.5-3.0); MEAN CELL VOLUME 94.1 fl (80-99); MEAN CORPUSCULAR HEMOGLOBIN 30.6 pg (26.0-30.0); MEAN CORPUSCULAR HGB CONC 32.5 pg (28.0-36.0); MEAN PLATELET VOLUME 7.4 fl; MONOCYTE ABSOLUTE 0.7 Th/cmm (0.3-1.0); NEUTROPHILE ABSOLUTE 2.9 Th/cmm (1.8-8.0); PLATELET COUNT 147 Th/cmm (150-400); RED BLOOD COUNT 5.32 Mil/cmm (4.30-5.70); RED CELL DISTRIBUTION WIDTH 13.5 % (11.5-20.0); WHITE BLOOD COUNT 6.5 Th/cmm (4.8-10.8)
[2018-03-12 18:41] LABS: ALB/GLOB RATIO 1.3 (1.0-1.8); ALBUMIN 4.4 gm/dL (4.2-5.5); ALKALINE PHOSPHATASE 58 U/L (34-104); ANION GAP 14.3 (7.0-16.0); BILIRUBIN,TOTAL 0.5 mg/dL (0.3-1.0); BUN - UREA NITROGEN 15 mg/dL (7-25); CALCIUM SERUM 9.8 mg/dL (8.6-10.3); CARBON DIOXIDE 24.6 mEq/L (21.0-31.0); CHLORIDE 102 mEq/L (98-107); CHOLESTEROL 140 mg/dL (<200); CREATININE - SERUM 0.7 mg/dL (0.7-1.3); GFR AFRICAN-AMERICAN > 60.0 ml/min (>90); GFR NON AFRICAN-AMERICAN > 60.0 ml/min; GLUCOSE 56 mg/dL (70-105); HDL -HIGH DENSITY LIPOPROTEIN 41 mg/dL (23-92); POTASSIUM SERUM 3.9 mEq/L (3.5-5.1); SGOT 14 U/L (13-39); SGPT/ALT 11 U/L (7-52); SODIUM SERUM 137 mEq/L (136-145); TOTAL PROTEIN,SERUM 7.9 gm/dL (6.0-8.3); TRIGLYCERIDES 147 mg/dL (<150)
[2018-03-13 00:40] VITALS: BP 149/92
[2018-03-13] MEDS ORDERED: Maalox 30 mL Cup PO PRN (02:51)
[2018-03-13] MEDS ORDERED: Magnesium Hydroxide (MOM) 30 mL UDC PO PRN ×2 (02:51)
[2018-03-13] MEDS: Levothyroxine 0.088 Mg Tab PO SCH (06:49)
[2018-03-13] MEDS: INSULIN ASPART SLIDING SCALE 100 UNITS/ML UNIT SUBQ SCH ×3 (06:50→18:31)
[2018-03-13] MEDS ORDERED: Haloperidol Lactate 5 mg/mL 1mL Vial ONE (08:44)
[2018-03-13] MEDS ORDERED: Haloperidol Lactate 5 mg/mL 1mL Vial IM ONE (09:00)
--- NOTE | 2018-03-13 10:35 | History & Physical ---
ADMIT DATE: 03/13/2018 THE PATIENT'S ID: A 57-year-old male. CHIEF COMPLAINT: "I don't know why am I here." HISTORY OF PRESENT ILLNESS: A 57-year-old [place] male with history of type 2 diabetes, hypertension, hyperlipidemia, hypothyroidism, who resides in a long term, has been followed by myself and Dr. Flores, noted by nursing staff that the patient was extremely agitated, aggressive and not taking any medication. The patient was sent to Emergency Room for evaluation at [facility]. After being evaluated by Emergency Room MD, the patient has been admitted to the hospital for further treatment. PAST MEDICAL HISTORY: Remarkable for: 1. Diabetes. 2. Hypertension. 3. Hyperlipidemia. 4. DJD. 5. History of hemorrhagic stroke. 6. Peripheral vascular disease. 7. GERD. MEDICATIONS: At the long term has been reviewed and reconciled. PAST SURGICAL HISTORY: Remarkable for craniotomy for subarachnoid hemorrhage. FAMILY MEDICAL HISTORY: Remarkable for diabetes and hypertension. SOCIAL HISTORY: The patient currently resides in [facility]. The patient does not have any smoking cigarette, alcohol, or drug use. ALLERGIES: None. REVIEW OF SYSTEMS: The patient currently denies any headache, blurred vision, double vision, dysphagia, odynophagia, runny nose, stuffy nose, fever, chills, cough, chest pain, shortness of breath, palpitation, dizziness, nausea, vomiting, diarrhea, dysuria, hematuria, hematochezia, melena. No seizure or syncopal episode. PHYSICAL EXAMINATION: GENERAL: The patient is alert, awake, oriented, answering all the questions properly giving me appropriate history. VITAL SIGNS: Temperature 98, pulse is 88, respiratory rate 18, blood pressure 150/86. HEENT: Normocephalic. Craniotomy scar on the forehead area noted. Some indentation of the bile temporal area noted. Extraocular muscles are intact. Sclerae without any icterus. Pupils are equal and reactive to light. Tongue was pink and coated. Poor dentition noted. No oral lesion, no exudate. NECK: Supple, no JVD, no hepatojugular reflex. No lymphadenopathy, thyromegaly, or carotid bruit. HEART: Both heart sounds are regular. No S3, no S4, no murmur. CHEST AND LUNGS: Equal in expansion, no wheezing, no crackles. ABDOMEN: Soft. No guarding, no rigidity. Liver and spleen palpable. No palpable mass. EXTREMITIES: No edema, no cyanosis, no clubbing. Peripheral pulses +2. No calf tenderness noted. Evidence of onychomycosis on all toenails noted. NEUROLOGIC: Alert, awake, oriented to time, place, person. A 2-12 cranial nerves are intact. Power in upper or lower extremities 5-. Sensation to touch intact. Babinskis in both toes are going down. No cerebral sign. AVAILABLE DIAGNOSTIC DATA: Performed in the Emergency Room remarkable for white count of 6.5, hemoglobin 11.1, platelet count of 320. Sodium 131, potassium 3.5, chloride 95, BUN and creatinine is 15 and 0 0.7. Albumin of 3.8. Triglyceride 199, HDL of 55. TSH of 2.35. EKG has Q-waves in inferior leads, no ST-T change representing acute ischemia. CLINICAL IMPRESSION: 1. Psychotic disorder exacerbation. 2. Diabetes, longstanding most likely insulin requiring. 3. Hypertension. 4. Hypothyroidism. 5. Degenerative joint disease. 6. Hyperlipidemia. 7. History of hemorrhagic cerebrovascular accident. 8. Debility. PLAN: In the view patient has a longstanding diabetes, I will discontinue oral hypoglycemic agent and put the patient on Levemir in regular scheduled insulin with breakfast, lunch, and dinner, use sliding scale as well to control postprandial hyperglycemia. The patient will be placed on patient's home medication as well. The patient will be followed by myself during the stay in the hospital. I sincerely thank you, Dr. Franz for giving me the opportunity in participating in patient of yours. JOB# [id number]
[2018-03-13] MEDS: Multivitamin Tab PO SCH (12:31)
[2018-03-13] MEDS: Insulin Detemir 100 units/mL 10mL Vial SUBQ SCH (20:21)
[2018-03-13] MEDS ORDERED: Insulin Detemir 100 units/mL 10mL Vial SUBQ SCH (21:00)
--- NOTE | 2018-03-13 22:41 | Psychosocial Evaluation ---
DATE OF SERVICE: 03/13/2018 IDENTIFYING DATA: The patient is a 57-year-old male, resident of [facility]. Information obtained by directly interviewing the patient as well as reviewing the admission papers and they are reliable. JUSTIFICATION FOR HOSPITALIZATION: The patient is admitted here on a voluntary basis in view of his aggressive and disruptive behavior. CHIEF COMPLAINT: "I don't know." HISTORY OF PRESENT ILLNESS: This is one of multiple psychiatric hospitalizations for this patient who has been diagnosed to have bipolar disorder and has been not making any sense at this time and has been getting easily irritable and angry and could not be contained at a lower level of care. Prior to the hospitalization, the patient is reported to be on Seroquel and Depakote. Compliance with the medication is noted to be questionable. The patient is admitted over here for his aggressive behavior since the behavior could not be contained at a lower level of care. At the time of the admission, blood work was noted to be 56. Electrolytes are noted to be within normal limits and TSH is also noted to be within normal limits. Valproic acid level is noted to be 82.3. PAST PSYCHIATRIC HISTORY: Please refer to the above. MEDICAL HISTORY: Physical examination is requested to be done by Dr. Spears. SUBSTANCE ABUSE HISTORY: None. PHYSICAL OR SEXUAL ABUSE HISTORY: None. LEGAL PROBLEMS: None at this time. STRENGTH AND ASSETS: The patient is motivated. MENTAL STATUS EXAMINATION: The patient is a 57-year-old, looking his stated age, superficially cooperative. Eye contact is poor. Mood is noted to be irritable. Affect is constricted. Insight and judgment are noted to be very much impaired. Impulse control is noted to be poor. The patient is screaming and yelling. The patient has no coping skills. The patient is testing the limits still. The patient has paranoia, but denies any command hallucinations. The patient is not able to contract for safety and the patient needs to be redirected constantly and the patient is alert and aware that he is in the hospital. Attention span and concentration are noted to be poor at this time and the patient has been testing the limits with the staff members. The patient is getting easily upset. Impulse control is noted to be limited and needs to be redirected. DIAGNOSES AT THE TIME OF THE EVALUATION: AXIS I: Bipolar disorder mixed with psychotic symptoms. AXIS II: None. AXIS III: As per Dr. Spears. IMMEDIATE TREATMENT PLAN: The patient is going to be observed on inpatient unit, provided with supportive psychotherapy. The patient is going to be encouraged to participate in the groups and verbalize the concerns. ESTIMATED LENGTH OF STAY: 5-7 days. DISCHARGE CRITERIA: When he no longer a threat to self or others and be able to cope up with the stress. JOB# [id number]
[2018-03-14] MEDS: Levothyroxine 0.088 Mg Tab PO SCH (06:35)
[2018-03-14] MEDS: INSULIN ASPART SLIDING SCALE 100 UNITS/ML UNIT SUBQ SCH ×3 (06:39→17:23)
[2018-03-14] MEDS: INSULIN ASPART, RECOMBINANT 100 UNITS/ML SUBQ SCH ×3 (08:27→17:25)
[2018-03-14] MEDS: Multivitamin Tab PO SCH (09:01)
--- NOTE | 2018-03-14 12:56 | Progress Notes ---
DATE: 03/14/2018 SUBJECTIVE: Staff was spoken to. The patient is interviewed. Mood is noted to be irritable. Affect is constricted. Insight and judgment are still impaired. Impulse control seems to be poor. Coping skills are noted to be very poor. The patient has been having difficult time to cope with the stress. The patient has been having difficult time to be redirected. The patient have valproic acid level done ____ noted to be 82.3. No side effects to the medications are noted. However, the patient is impulsive and needs to be redirected. ASSESSMENT: The patient is still impulsive and psychotic. PLAN: To continue the patient with the Depakote and Seroquel and follow the patient up. JOB# [id number]
[2018-03-14 17:15] LABS: A1C % 8.9 % (4.0-6.0)
[2018-03-14] MEDS: Insulin Detemir 100 units/mL 10mL Vial SUBQ SCH (20:08)
--- NOTE | 2018-03-14 20:15 | Progress Notes ---
DATE: IDENTIFICATION: A 57-year-old male. SUBJECTIVE: The patient is seen and examined. The patient is lying in the bed. No new complaints. PHYSICAL EXAMINATION: VITAL SIGNS: Temperature 97, pulse is 92, respiratory rate is 18, blood pressure 160/66. HEENT: No facial asymmetry. NECK: Supple, no JVD. HEART: Regular. CHEST AND LUNGS: Equal in expansion, no wheezing, no crackles. ABDOMEN: Soft. No guarding, no rigidity. Bowel sounds are present. No palpable mass. EXTREMITIES: No edema, no cyanosis. NEUROLOGIC: Alert, awake, follows commands. CLINICAL IMPRESSION: 1. Psychotic disorder exacerbation. 2. Insulin requiring diabetes. 3. Hypertension. 4. Hypothyroidism. 5. Hyperlipidemia. 6. History of hemorrhagic cerebrovascular accident with no residual defect. 7. Debility. 8. Degenerative joint disease. PLAN: 1. Diabetes management. 2. Monitor blood pressure. 3. Follow lab. 4. Antihypertensive medicine. 5. Synthroid. 6. Continue other medicine as prescribed. 7. Care plan reviewed and discussed with staff. JOB# [id number]
--- NOTE | 2018-03-14 21:26 | Consultation ---
DATE OF CONSULTATION: 03/14/2018 REFERRING PHYSICIAN: Bertha Franz M.D. TYPE OF CONSULTATION: Psychology. HISTORY OF PRESENT ILLNESS: The patient is a 57-year-old male. The patient is a resident of [facility]. The patient is known to this staff writer from previous hospitalizations. The following is by review of the medical record. The patient is being admitted on a voluntary basis due to aggressive and disruptive behavior. The patient does not understand why he has been admitted. The staff at the patient's facility reports that he has become easily agitated with anger outbursts and compliance with medication is questionable. The patient also includes a history of mental retardation, mild to moderate from previous records. The patient was unable to verbally contract for safety at the time of this clinical interview. PAST MEDICAL HISTORY: Please see history and physical by Dr. Spears. PAST PSYCHIATRIC HISTORY: The patient has a long history of bipolar disorder with psychotic symptoms. The patient is under the care of a psychiatrist and psychologist at his placement. There is a history of MR. SUBSTANCE ABUSE HISTORY: None. PSYCHOSOCIAL HISTORY: The patient did not answer questions about occupational or educational history or anabaptist affiliation. The patient did not answer questions about physical or sexual abuse or legal problems. The patient has limited support with the exception of the staff at his facility. The patient will return to [facility]. MENTAL STATUS EXAMINATION: The patient appears to be his stated age. The patient's attitude is superficially cooperative. Eye contact is poor. Mood is irritable. Affect is constricted. The patient's speech is slurred and at times almost unintelligible. The patient is not making much sense. During the clinical interview, there were episodes of the patient screaming and yelling for no apparent reason. The patient did not answer questions about auditory or visual hallucinations, but indicated with nodding of the head that he is not hearing any voices or any command type of hallucinations. There is some evidence of paranoid ideation. The patient's sensorium is alert, but disoriented x 3. Impulse control is impaired. Concentration is poor. The patient's behavior on the unit has been to test the limits of the clinical staff. The patient is easily agitated. The patient did not participate in the memory evaluation or the interpretation of proverbs. Insight is impaired. Judgment is impaired. DIAGNOSTIC IMPRESSION: AXIS I: Bipolar disorder mixed with psychotic symptoms. AXIS II: History of MR. AXIS III: Per Dr. Spears. PLAN: The patient has been seen by Dr. Franz for psychiatric evaluation and for the management of the patient's psychotropic medications. We will provide supportive psychotherapy and behavioral therapy. The patient was unable to verbally contract for safety. We will provide continued opportunities throughout the course of his hospital stay. We will provide motivational enhancement for the patient to become compliant and stay compliant with all aspects of his care and treatment and specifically medication compliance. The patient has a history of intermittent noncompliance with medication. We will provide reality testing, reality orientation, reality integration. We will continue to provide coping skills for chronic long-term mental illness. We will provide de-escalation along with emotional and self-regulation for the patient to demonstrate no verbal outbursts or behavioral problems prior to discharge. Thank you, Dr. Franz for this consult and the opportunity to participate with you in this patient's care. [facility]# [id number]
[2018-03-15] MEDS: Levothyroxine 0.088 Mg Tab PO SCH (06:35)
[2018-03-15] MEDS: INSULIN ASPART SLIDING SCALE 100 UNITS/ML UNIT SUBQ SCH ×3 (06:41→17:04)
[2018-03-15] MEDS: INSULIN ASPART, RECOMBINANT 100 UNITS/ML SUBQ SCH ×3 (07:34→17:03)
[2018-03-15] MEDS: Multivitamin Tab PO SCH (08:38)
--- NOTE | 2018-03-15 17:05 | Progress Notes ---
DATE: 03/15/2018 PSYCHIATRIC PROGRESS NOTE SUBJECTIVE: Staff was spoken to. The patient is interviewed. Mood is noted to be irritable. Affect is constricted. Coping skills are noted to be very poor. Sleep and appetite also noted to be very poor. No side effects to the medications are noted. The patient has been still testing the limits. The patient is currently on Depakote 750 mg twice a day and the patient is going to be continued on the Seroquel 150 mg at bedtime. The patient is being closely monitored. PLAN: In view of his aggression, it is decided to increase the dose on the Seroquel to 200 mg and follow the patient up with the supportive therapy. The patient is not ready to be discharged to a lower level of care yet. JOB# [id number]
[2018-03-15] MEDS: Insulin Detemir 100 units/mL 10mL Vial SUBQ SCH (20:46)
[2018-03-16] MEDS: INSULIN ASPART SLIDING SCALE 100 UNITS/ML UNIT SUBQ SCH ×3 (06:39→17:22)
[2018-03-16] MEDS: Levothyroxine 0.088 Mg Tab PO SCH (06:44)
[2018-03-16] MEDS: INSULIN ASPART, RECOMBINANT 100 UNITS/ML SUBQ SCH ×3 (08:13→17:22)
[2018-03-16] MEDS: Multivitamin Tab PO SCH (09:48)
[2018-03-16] MEDS: Insulin Detemir 100 units/mL 10mL Vial SUBQ SCH (20:43)
--- NOTE | 2018-03-17 01:20 | Progress Notes ---
DATE: 03/16/2018 IDENTIFICATION: A 57-year-old male. SUBJECTIVE: The patient seen and examined. The patient is lying in the bed. The patient denies any chest pain, shortness of breath, palpitation, dizziness, nausea, vomiting, diarrhea. Glucoscan is reviewed. PHYSICAL EXAMINATION: VITAL SIGNS: Temperature 97.5, pulse 62, respiratory 18, blood pressure 106/74. HEENT: No facial asymmetry. NECK: Supple, no JVD, no lymphadenopathy, thyromegaly. HEART: Both heart sounds are regular. CHEST: Lung equal in expansion. No wheezing, no crackles. ABDOMEN: Soft. No guarding, rigidity. Bowel sounds are present. No palpable mass. EXTREMITIES: No edema. CLINICAL IMPRESSION: 1. Diabetes mellitus. 2. Hypertension. 3. Hyperlipidemia. 4. Degenerative joint disease. 5. Peripheral vascular disease. 6. Gastroesophageal reflux disease. 7. Hemorrhagic cerebrovascular accident. 8. Psychotic disorder exacerbation. PLAN: 1. Psychotic evaluation and management deferred to psychiatrist. 2. Diabetes management with Glucoscan and basal bolus insulin therapy. 3. Antihypertensive medication. 4. Monitor blood pressure. 5. Synthroid. 6. Statins. 7. Fall precautions. 8. General nursing care. 9. Care plan reviewed and discussed with staff. JOB# [id number]
[2018-03-17] MEDS: INSULIN ASPART SLIDING SCALE 100 UNITS/ML UNIT SUBQ SCH ×3 (06:30→16:30)
[2018-03-17] MEDS: Levothyroxine 0.088 Mg Tab PO SCH (06:42)
[2018-03-17] MEDS: Multivitamin Tab PO SCH (08:19)
[2018-03-17] MEDS: INSULIN ASPART, RECOMBINANT 100 UNITS/ML SUBQ SCH ×3 (08:22→17:00)
--- NOTE | 2018-03-17 10:48 | Progress Notes ---
DATE: 03/16/2018 PSYCHIATRIC PROGRESS NOTE SUBJECTIVE: Staff was spoken to. The patient is interviewed. Mood is noted to be irritable. Affect is constricted. Insight and judgment at this time are noted to be still impaired. Impulse control is noted to be limited. The patient is getting easily frustrated and gets angry and upset when he is going to be redirected. The patient has no insight into his illness. The patient is going to be continued on 750 mg twice a day of Depakote. The patient also has been placed on 200 mg of Seroquel at nighttime and the patient has been able to tolerate the medication so far. ASSESSMENT: The patient is still psychotic. PLAN: To continue the patient with supportive therapy and followup. [facility]# [id number]
--- NOTE | 2018-03-17 14:29 | Progress Notes ---
DATE: 03/17/2018 SUBJECTIVE: Staff was spoken to. The patient is interviewed. Mood is noted to be anxious. Affect is constricted. The patient's insight and judgment at this time are noted to be still impaired. Impulse control seemed to be limited. The patient is currently on valproic acid 750 mg twice a day and is also on Seroquel 200 mg at bedtime. The patient has been able to tolerate. The patient, however, getting easily irritable and angry, starts to throw things around towards the evening and the patient is going to be closely monitored at this time with these medications and followup. JOB# [id number]
[2018-03-17] MEDS ORDERED: Insulin Detemir 100 units/mL 10mL Vial SUBQ SCH (21:00)
--- NOTE | 2018-03-18 01:50 | Progress Notes ---
DATE: 03/17/2018 PATIENT'S IDENTIFICATION: A 57-year-old male. SUBJECTIVE: The patient seen and examined. Blood sugars are in 200 range. The patient is currently on a sliding scale NovoLog and Levemir insulin. The patient has no new complaint. PHYSICAL EXAMINATION: VITAL SIGNS: See nurse's note. HEENT: Poor dentition. NECK: Supple, no JVD. HEART: Regular. CHEST AND LUNGS: Equal in expansion, no expiratory wheezing. ABDOMEN: Soft. No guarding, no rigidity. Bowel sounds are present. No palpable mass. EXTREMITIES: No edema. CLINICAL IMPRESSION: 1. Uncontrolled diabetes mellitus. 2. Hypertension. 3. Hypothyroidism. 4. Psychotic disorder. 5. Degenerative joint disease. PLAN: 1. Increase Levemir insulin for now. 2. Monitor blood sugar and blood pressure. 3. Psych followup. 4. General nursing care. 5. Followup visit. We will continue to monitor the patient while staying in the hospital. JOB# [id number]
[2018-03-18] MEDS: INSULIN ASPART SLIDING SCALE 100 UNITS/ML UNIT SUBQ SCH ×3 (06:41→16:30)
[2018-03-18] MEDS: Levothyroxine 0.088 Mg Tab PO SCH (06:49)
[2018-03-18] MEDS: Multivitamin Tab PO SCH (09:25)
[2018-03-18] MEDS: INSULIN ASPART, RECOMBINANT 100 UNITS/ML SUBQ SCH ×3 (09:27→17:42)
[2018-03-18] MEDS: Insulin Detemir 100 units/mL 10mL Vial SUBQ SCH (20:32)
--- NOTE | 2018-03-18 22:34 | Progress Notes ---
DATE: 03/18/2018 SUBJECTIVE: Staff was spoken to. The patient is interviewed. Mood is noted to be irritable. Affect is constricted. Insight and judgment at this time are noted to be still impaired. Coping skills are noted to be poor. The patient is getting easily irritable and angry and the patient has been having difficult time to cope with the stress. The patient is refusing to participate in any of the groups. The patient is currently on divalproex 750 mg twice a day and the patient is also getting the Seroquel 200 mg at bedtime and has been able to tolerate the medications. No side effects to the medications are noted. ASSESSMENT: The patient is still grossly psychotic. PLAN: To continue the patient with the supportive therapy and followup. JOB# [id number]
--- NOTE | 2018-03-18 22:40 | Progress Notes ---
DATE: 03/18/2018 IDENTIFICATION: A 57-year-old male. SUBJECTIVE: The patient seen and examined. The patient's blood sugars continues to be elevated. The patient is currently on a basal bolus insulin therapy. The patient is hemodynamically stable at this time. Psychiatric medications has been managed by the psychiatrist, . The patient has no new complaint. PHYSICAL EXAMINATION: VITAL SIGNS: Temperature 97.5, pulse 78, respiratory rate 18, blood pressure 114/70. HEENT: No facial asymmetry. NECK: Supple, no JVD. HEART: Both heart sounds are regular. CHEST AND LUNGS: Equal in expansion, no wheezing, no crackles. ABDOMEN: Soft. EXTREMITIES: No edema. CLINICAL IMPRESSION: 1. Uncontrolled diabetes. 2. Hypertension. 3. Hypothyroidism. 4. Psychotic disorder. PLAN: The patient is to increase the basal bolus insulin dose and see how the patient does. The patient will be followed by me while patient in the hospital. Continue to provide psychiatric medications as ordered by psychiatrist and general nursing care and nutritional support. JOB# [id number]
[2018-03-19] MEDS: INSULIN ASPART SLIDING SCALE 100 UNITS/ML UNIT SUBQ SCH ×3 (06:53→17:21)
[2018-03-19] MEDS: Levothyroxine 0.088 Mg Tab PO SCH (07:39)
[2018-03-19] MEDS: Multivitamin Tab PO SCH (08:21)
[2018-03-19 08:28] LABS: % BASOPHILS 0.2 % (0.0-2.0); % EOSINOPHILS 3.5 % (0.0-5.0); % LYMPHOCYTES 45.2 % (20.0-50.0); % MONOCYTES 13.7 % (2.0-10.0); % NEUTROPHILS 37.4 % (40.0-80.0); EOSINOPHILE ABSOLUTE 0.2 Th/cmm (0.1-0.4); HEMATOCRIT 43.6 % (41.0-60); HEMOGLOBIN 14.8 gm/dL (12-16); LYMPHOCYTE ABSOLUTE 2.2 Th/cmm (1.5-3.0); MEAN CELL VOLUME 92.7 fl (80-99); MEAN CORPUSCULAR HEMOGLOBIN 31.4 pg (26.0-30.0); MEAN CORPUSCULAR HGB CONC 33.9 pg (28.0-36.0); MEAN PLATELET VOLUME 7.8 fl; MONOCYTE ABSOLUTE 0.7 Th/cmm (0.3-1.0); NEUTROPHILE ABSOLUTE 1.9 Th/cmm (1.8-8.0); PLATELET COUNT 145 Th/cmm (150-400); RED CELL DISTRIBUTION WIDTH 13.4 % (11.5-20.0)
[2018-03-19] MEDS: INSULIN ASPART, RECOMBINANT 100 UNITS/ML SUBQ SCH ×3 (08:38→17:22)
[2018-03-19 09:02] LABS: ALB/GLOB RATIO 1.2 (1.0-1.8); ALBUMIN 3.5 gm/dL (4.2-5.5); ALKALINE PHOSPHATASE 42 U/L (34-104); ANION GAP 10.4 (7.0-16.0); BILIRUBIN,TOTAL 0.5 mg/dL (0.3-1.0); BUN - UREA NITROGEN 16 mg/dL (7-25); CHLORIDE 99 mEq/L (98-107); CREATININE - SERUM 0.7 mg/dL (0.7-1.3); GFR AFRICAN-AMERICAN > 60.0 ml/min (>90); GFR NON AFRICAN-AMERICAN > 60.0 ml/min; GLUCOSE 212 mg/dL (70-105); POTASSIUM SERUM 4.4 mEq/L (3.5-5.1); SGOT 17 U/L (13-39); SGPT/ALT 13 U/L (7-52); SODIUM SERUM 131 mEq/L (136-145); TOTAL PROTEIN,SERUM 6.4 gm/dL (6.0-8.3)
--- NOTE | 2018-03-20 00:13 | Progress Notes ---
DATE: PATIENT'S IDENTIFICATION: A 57-year-old male. SUBJECTIVE: The patient seen and examined. The patient is lying in the bed. The patient's blood sugars are still elevated. PHYSICAL EXAMINATION: VITAL SIGNS: On exam, temperature 97.9, pulse 70, respiratory rate 18, blood pressure 134/80. HEENT: No facial asymmetry. NECK: Supple. No JVD. HEART: Regular. CHEST AND LUNG: Equal in expansion. No wheezing, no crackles. ABDOMEN: Soft. EXTREMITIES: No edema. CLINICAL IMPRESSION: 1. Diabetes mellitus, insulin requiring. 2. Hypertension. 3. History of hemorrhagic cerebrovascular accident. 4. Hypothyroidism. 5. Psychotic disorder. PLAN: Adjust the dose of basal bolus insulin therapy based on the blood sugar. Continue to monitor blood sugar, blood pressure and Synthroid. General nursing care along with psych medication and psych followup. JOB# [id number]
--- NOTE | 2018-03-20 01:25 | Progress Notes ---
DATE: 03/19/2018 SUBJECTIVE: Staff was spoken to. The patient is interviewed. Mood is noted to be irritable. Affect is constricted. Insight and judgment noted to be still impaired. Coping skills are noted to be poor. The patient has been currently on 750 mg twice a day of valproic acid and 200 mg of the Seroquel at bedtime and has been able to tolerate the medication, but the patient has a tendency to get easily irritable and angry and to scream. No side effects to the medications are noted. The patient's blood pressure is going to be monitored and the patient is currently on the lisinopril and has been receiving the insulin ____. ASSESSMENT: The patient is still impulsive. PLAN: To continue the patient with the supportive therapy. I encouraged the patient to verbalize the concerns rather than to act out. JOB# [id number]
[2018-03-20] MEDS: Multivitamin Tab PO SCH (10:40)
[2018-03-20] MEDS: Levothyroxine 0.088 Mg Tab PO SCH (11:16)
[2018-03-20] MEDS: INSULIN ASPART SLIDING SCALE 100 UNITS/ML UNIT SUBQ SCH ×4 (12:00→17:38)
[2018-03-20] MEDS: INSULIN ASPART, RECOMBINANT 100 UNITS/ML SUBQ SCH ×2 (12:33→14:26)
[2018-03-20] MEDS: Insulin Detemir 100 units/mL 10mL Vial SUBQ SCH (20:49)
--- NOTE | 2018-03-20 22:31 | Progress Notes ---
DATE: PATIENT'S IDENTIFICATION: A 57-year-old male. SUBJECTIVE: The patient seen and examined. The patient is lying in the bed and blood sugars look under acceptable range. Fasting as well as postprandial. The patient currently remained asymptomatic, currently on NovoLog 16 units 3 times a day with 50 units of Levemir insulin at bedtime. The patient has no new event. Nurse's note has been reviewed. PHYSICAL EXAMINATION: VITAL SIGNS: Temperature 96.9, pulse 69, respiratory rate 20, blood pressure 131/71. HEENT: No facial asymmetry. NECK: Supple. No JVD. HEART: Regular. CHEST AND LUNG: Equal in expansion, no wheezing, no crackles. ABDOMEN: Soft. No guarding, no rigidity. Bowel sounds are present. No palpable mass. EXTREMITIES: No edema, no cyanosis. NEUROLOGIC: Limited, but nonfocal. CLINICAL IMPRESSION: 1. Diabetes mellitus, insulin requiring. 2. Hypertension. 3. Hypothyroidism. 4. Psychotic disorder. 5. Hyperlipidemia. 6. Degenerative joint disease. 7. History of hemorrhagic cerebrovascular accident with no residual effect. PLAN: 1. Psych medication. 2. Psych followup. 3. Basal bolus insulin therapy. 4. Monitor blood sugar. 5. Monitor blood pressure. 6. Antihypertensive medicine. 7. Synthroid. 8. Statin. 9. General nursing care. 10. Fall precautions. 11. Continue current treatment plan as prescribed. 12. Care plan reviewed and discussed with staff. JOB# [id number]
--- NOTE | 2018-03-21 02:10 | Progress Notes ---
DATE: 03/20/2018 SUBJECTIVE: Staff was spoken to. The patient is interviewed. Mood is noted to be irritable. Affect is constricted. Coping skills are noted to be still poor. The patient has been having difficult time to cope with the stress. No side effects to the medications are noted. The patient is insisting on to be left alone and does not want to participate in any of the groups. ASSESSMENT: The patient is still impulsive. PLAN: To continue the patient with the supportive therapy. I encouraged the patient to verbalize the concerns rather than to act out. The patient is currently on valproic acid 750 mg twice a day and Seroquel 200 mg at bedtime. Plan to continue these medications and follow up with the supportive therapy. JOB# [id number]
[2018-03-21] MEDS: Levothyroxine 0.088 Mg Tab PO SCH (06:59)
[2018-03-21] MEDS: INSULIN ASPART SLIDING SCALE 100 UNITS/ML UNIT SUBQ SCH ×3 (07:12→16:56)
[2018-03-21] MEDS: Multivitamin Tab PO SCH (09:15)
[2018-03-21] MEDS: INSULIN ASPART, RECOMBINANT 100 UNITS/ML SUBQ SCH ×3 (09:26→16:57)
[2018-03-21] MEDS: Insulin Detemir 100 units/mL 10mL Vial SUBQ SCH (20:49)
[2018-03-22] MEDS: INSULIN ASPART SLIDING SCALE 100 UNITS/ML UNIT SUBQ SCH ×3 (06:57→16:40)
[2018-03-22] MEDS: INSULIN ASPART, RECOMBINANT 100 UNITS/ML SUBQ SCH ×3 (09:04→16:39)
[2018-03-22] MEDS: Multivitamin Tab PO SCH (09:05)
--- NOTE | 2018-03-22 17:45 | Progress Notes ---
DATE: 03/22/2018 SUBJECTIVE: Staff was spoken to. The patient is interviewed. Mood is noted to be less irritable. Affect is appropriate. The patient could be redirectable today. Insight and judgment are noted to be improving. Impulse control seems to be fair. No side effects to the medications are noted. The patient has been able to verbalize the concerns. ASSESSMENT: The patient's psychosis and impulsivity is resolving. PLAN: To continue the patient with the supportive therapy. I encouraged the patient to verbalize the concerns rather than to act out. JOB# [id number]
--- NOTE | 2018-03-22 18:20 | Progress Notes ---
DATE: 03/22/2018 SUBJECTIVE: The patient seen and examined. The patient is lying in the bed. Blood sugars chart has been reviewed, episode of hypoglycemia noted. PHYSICAL EXAMINATION: VITAL SIGNS: Temperature 98, pulse is 68, respiratory rate 18, blood pressure 124/75. HEENT: No facial asymmetry. NECK: Supple, no JVD. HEART: Regular. CHEST AND LUNGS: Equal in expansion. No wheezing, no crackles. ABDOMEN: Soft. EXTREMITIES: No edema. NEUROLOGIC: Nonfocal. CLINICAL IMPRESSION: 1. Diabetes mellitus, uncontrolled. 2. Hypertension. 3. History of hemorrhagic cerebrovascular accident. 4. Hypothyroidism. 5. Degenerative joint disease. 6. Psychotic disorder. PLAN: 1. Monitor blood sugar. 2. Basal bolus insulin therapy. 3. Psych medication. 4. Psych followup. 5. General nursing care. 6. Nutritional support. 7. Avoid hypoglycemia. 8. We will continue to follow this patient. JOB# [id number]
[2018-03-22] MEDS ORDERED: Haloperidol Lactate 5 mg/mL 1mL Vial IM ONE (18:44)
[2018-03-22] MEDS ORDERED: Haloperidol Lactate 5 mg/mL 1mL Vial ONE (18:45)
[2018-03-22] MEDS: Insulin Detemir 100 units/mL 10mL Vial SUBQ SCH (21:04)
[2018-03-23] MEDS: INSULIN ASPART SLIDING SCALE 100 UNITS/ML UNIT SUBQ SCH ×2 (06:31→12:09)
[2018-03-23] MEDS: Levothyroxine 0.088 Mg Tab PO SCH (06:58)
[2018-03-23] MEDS: INSULIN ASPART, RECOMBINANT 100 UNITS/ML SUBQ SCH ×2 (07:56→12:09)
[2018-03-23] MEDS: Multivitamin Tab PO SCH (08:03)
--- NOTE | 2018-03-23 10:01 | Progress Notes ---
DATE: 03/23/2018 SUBJECTIVE: The patient seen and examined. The patient is currently on basal bolus insulin therapy. Blood sugars are currently under acceptable range. The patient is currently on aspart 16 units 3 times a day and Levemir at ____ units at bedtime. The patient currently denies any symptoms of hypo or hyperglycemia. Denies any chest pain, no shortness of breath, palpitation, or dizziness. PHYSICAL EXAMINATION: VITAL SIGNS: See nurse's note. HEENT: No facial asymmetry. NECK: Supple, no JVD. HEART: Regular. CHEST: Lung equal in expansion. LUNGS: No wheezing, no crackles. ABDOMEN: Soft. EXTREMITIES: No edema. CLINICAL IMPRESSION: 1. Diabetes mellitus. 2. Hypertension. 3. Hypothyroidism. 4. Hyperlipidemia. 5. Degenerative joint disease. 6. Psychiatric disorder. PLAN: He will continue prescribed basal bolus insulin therapy along with the lisinopril, levothyroxine, and atorvastatin for underlying problem. Continue to provide psych medication and psych followup as per psychiatrist. We will continue to follow this patient during the stay in the hospital. JOB# [id number]
--- NOTE | 2018-03-24 00:18 | Progress Notes ---
DATE: 03/23/2018 SUBJECTIVE: Staff was spoken to. The patient is interviewed. Mood is noted to be anxious. The patient's coping skills are noted to be improving. The patient is not impulsive. The patient has been able to verbalize the concerns rather than to act out. ASSESSMENT: The patient is stabilizing. PLAN: To discharge the patient today for followup on outpatient basis. JOB# [id number]
== END 2018-03-23 14:15 | DRG 885 ==
LOC: ER 17:18 → GERO 19:00
PROVIDERS: ADMIT Psychiatry & Neurology Psychiatry; ATTEND Psychiatry & Neurology Psychiatry
DX: F31.60 Bipolar disorder, current episode mixed, unspecified (principal); F01.50 Vascular dementia, unspecified severity, without behavioral disturbance, psychotic disturbance, mood disturbance, and anxiety; I10 Essential (primary) hypertension; K21.9 Gastro-esophageal reflux disease without esophagitis; E78.5 Hyperlipidemia, unspecified; G40.909 Epilepsy, unspecified, not intractable, without status epilepticus; E03.9 Hypothyroidism, unspecified; M19.90 Unspecified osteoarthritis, unspecified site; E11.51 Type 2 diabetes mellitus with diabetic peripheral angiopathy without gangrene; E11.649 Type 2 diabetes mellitus with hypoglycemia without coma; Z86.79 Personal history of other diseases of the circulatory system; Z82.49 Family history of ischemic heart disease and other diseases of the circulatory system; Z86.73 Personal history of transient ischemic attack (TIA), and cerebral infarction without residual deficits
CPT/HCPCS: 36415-UA; 80053-TC; 80061-TC; 80164-TC; 82947-TC; 82948-90; 83036-90; 84443-TC; 85025-TC; 86592-TC; 90899; 93005; J1200; J1630; J1815; Z7610

== ENCOUNTER 2018-05-07 17:16 | Inpatient (IN) | payer MEDICARE, MEDICAID ==
--- NOTE | 2018-05-07 17:31 | ED Physician Chart ---
ED Chief Complaint/HPI - Patient Information Date Seen:: 05/07/18 Time Seen:: 17:20 Chief Complaint:: agitation History of Present Illness:: Patient has apparently been increasing the agitated at his long-term facility Allergies:: Allergies Allergy/AdvReac Type Severity Reaction Status Date / Time No Known Allergies Allergy Verified 03/12/18 17:46 Historian:: Patient, EMS Review:: Transfer documents Reviewed ED Review of Systems - Review of Systems General/Constitutional: No fever, No chills, No weight loss, No weakness, No diaphoresis, No edema, No loss of appetite Skin: No skin lesions, No rash, No bruising Head: No headache, No light-headedness Eyes: No loss of vision, No pain, No diplopia ENT: No earache, No nasal drainage, No sore throat, No tinnitus Neck: No neck pain, No swelling, No thyromegaly, No stiffness, No mass noted Cardio Vascular: No chest pain, No palpitations, No PND, No orthopnea, No edema Pulmonary: No SOB, No cough, No sputum, No wheezing GI: No nausea, No vomiting, No diarrhea, No pain, No melena, No hematochezia, No constipation, No hematemesis G/U: No dysuria, No frequency, No hematuria Musculoskeletal: No bone or joint pain, No back pain, No muscle pain Endocrine: No polyuria, No polydipsia Psychiatric: Prior psych history Hematopoietic: No bruising, No lymphadenopathy Allergic/Immuno: No urticaria, No angioedema Neurological: No syncope, No focal symptoms, No weakness, No paresthesia, No headache, No seizure, No dizziness, No confusion, No vertigo ED Past Medical History - Past Medical History Past Medical History: HTN, DM, Dyslipidemia, Seizures, Thyroid disorder, Arthritis, Other (hypothyroidism; hyperlipidemia; peripheral vascular disease; gastroesophageal reflux disease; major depression; cerebral aneurysm; psychosis) Family History: Other (aren't available) Social History: Non Smoker, Care Facility Surgical History: other (left frontal craniotomy) Psychiatricy History: Depression Family Medical History - Family Member Mother History Unknown: Yes Ethnicity: Unknown Living Status: Unknown Hx Family Diabetes: Yes ED Labs/Radiology/EKG Results - Lab Results Results: Laboratory Results - last 24 hr 05/07/18 05/07/18 05/07/18 17:45 17:45 17:45 WBC 6.3 RBC 4.92 Hgb 15.3 Hct 46.4 MCV 94.1 MCH 31.1 H MCHC Differential 33.0 RDW 13.2 Plt Count 126 L MPV 7.1 Neutrophils % 40.4 Lymphocytes % 42.4 Monocytes % 14.8 H Eosinophils % 2.3 Basophils % 0.1 Sodium 132 L Potassium 4.3 Chloride 100 Carbon Dioxide 23.1 Anion Gap 13.2 BUN 15 Creatinine 0.8 Est GFR ( Amer) > 60.0 Est GFR (Non-Af Amer) > 60.0 BUN/Creatinine Ratio 18.8 Glucose 316 H Calcium 9.6 Total Bilirubin 0.4 AST 11 L ALT 10 Alkaline Phosphatase 50 Total Protein 6.7 Albumin 4.4 Globulin 2.3 Albumin/Globulin Ratio 1.9 H Triglycerides 109 Cholesterol 110 LDL Cholesterol Direct 51 L HDL Cholesterol 40 Valproic Acid 90.9 - EKG Interpretations Rate & Rhythm: normal sinus rhythm with a rate of 83 [place]: left axis deviation ED Septic Shock - . Is Septic Shock (SBP<90, OR Lactate>4 mmol\L) present?: No ED Reassessment (Disposition) - Reassessment Reassessment Condition:: Unchanged - Diagnosis Diagnosis:: Increased agitation; depression; status post craniotomy; status post cerebral aneurysm - Patient Disposition Admitted to:: [facility] Admitting Medical Physician:: Shira Whelan Admitting Psych Physician:: Bertha Franz
[2018-05-07 17:50] LABS: % BASOPHILS 0.1 % (0.0-2.0); % EOSINOPHILS 2.3 % (0.0-5.0); % LYMPHOCYTES 42.4 % (20.0-50.0); % MONOCYTES 14.8 % (2.0-10.0); % NEUTROPHILS 40.4 % (40.0-80.0); EOSINOPHILE ABSOLUTE 0.1 Th/cmm (0.1-0.4); HEMATOCRIT 46.4 % (41.0-60); HEMOGLOBIN 15.3 gm/dL (12-16); LYMPHOCYTE ABSOLUTE 2.8 Th/cmm (1.5-3.0); MEAN CELL VOLUME 94.1 fl (80-99); MEAN CORPUSCULAR HEMOGLOBIN 31.1 pg (26.0-30.0); MEAN PLATELET VOLUME 7.1 fl; MONOCYTE ABSOLUTE 0.9 Th/cmm (0.3-1.0); NEUTROPHILE ABSOLUTE 2.5 Th/cmm (1.8-8.0); PLATELET COUNT 126 Th/cmm (150-400); RED BLOOD COUNT 4.92 Mil/cmm (4.30-5.70); RED CELL DISTRIBUTION WIDTH 13.2 % (11.5-20.0); WHITE BLOOD COUNT 6.3 Th/cmm (4.8-10.8)
[2018-05-07 18:07] LABS: ALB/GLOB RATIO 1.9 (1.0-1.8); ALBUMIN 4.4 gm/dL (4.2-5.5); ALKALINE PHOSPHATASE 50 U/L (34-104); ANION GAP 13.2 (7.0-16.0); BILIRUBIN,TOTAL 0.4 mg/dL (0.3-1.0); BUN - UREA NITROGEN 15 mg/dL (7-25); CALCIUM SERUM 9.6 mg/dL (8.6-10.3); CARBON DIOXIDE 23.1 mEq/L (21.0-31.0); CHLORIDE 100 mEq/L (98-107); CHOLESTEROL 110 mg/dL (<200); CREATININE - SERUM 0.8 mg/dL (0.7-1.3); GFR AFRICAN-AMERICAN > 60.0 ml/min (>90); GFR NON AFRICAN-AMERICAN > 60.0 ml/min; GLUCOSE 316 mg/dL (70-105); HDL -HIGH DENSITY LIPOPROTEIN 40 mg/dL (23-92); POTASSIUM SERUM 4.3 mEq/L (3.5-5.1); SGOT 11 U/L (13-39); SGPT/ALT 10 U/L (7-52); SODIUM SERUM 132 mEq/L (136-145); TOTAL PROTEIN,SERUM 6.7 gm/dL (6.0-8.3); TRIGLYCERIDES 109 mg/dL (<150)
[2018-05-07 19:27] LABS: URINE SOURCE CLEAN C
[2018-05-07 19:31] LABS: URINE BILIRUBIN NEGATIVE (NEGATIVE); URINE BLOOD NEGATIVE (NEGATIVE); URINE GLUCOSE (UA) >=1000 mg/dL (NEGATIVE); URINE KETONE 15 mg/dL (NEGATIVE); URINE LEUKOCYTE ESTERASE NEGATIVE (NEGATIVE); URINE NITRATE NEGATIVE (NEGATIVE); URINE PROTEIN NEGATIVE (NEGATIVE)
[2018-05-07 19:49] LABS: URINE CLARITY CLEAR (CLEAR); URINE COLOR YELLOW
[2018-05-07 19:50] LABS: URINE MICROSCOPIC INDICATED? YES
[2018-05-07 19:53] LABS: URINE BACTERIA NONE SEEN /hpf (NONE SEEN); URINE EPITHELIAL CELLS RARE /lpf (FEW); URINE RBC 0-2 /hpf (0-5); URINE WBC 0-2 /hpf (0-5)
[2018-05-07 21:53] LABS: A1C % 8.8 % (4.0-6.0)
[2018-05-07 22:55] VITALS: BP 125/84
[2018-05-07] MEDS ORDERED: Magnesium Hydroxide (MOM) 30 mL UDC PO PRN (22:56)
[2018-05-08] MEDS: INSULIN ASPART SLIDING SCALE 100 UNITS/ML UNIT SUBQ SCH ×5 (07:16→20:35)
[2018-05-08] MEDS: Levothyroxine 0.088 Mg Tab PO SCH (07:17)
[2018-05-08] MEDS ORDERED: INSULIN ASPART, RECOMBINANT 100 UNITS/ML SUBQ SCH (08:00)
[2018-05-08] MEDS: Multivitamin Tab PO SCH (08:36)
--- NOTE | 2018-05-08 09:31 | History and Physical ---
History of Present Illness - HPI Chief Complaint: Patient is sent to emergency room for evaluation of increasing agitation and [facility]. HPI: 57-year-old [place] male who resides in penitentiary has significant psychiatric and medical history noted by nursing staff patient was extremely agitated and patient was advised to go to emergency room. Patient was seen by emergency room MD and subsequently admitted to the hospital for psychiatric care. 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, Peripheral neuropathy GI: Report: No Pertinent Hx Psych: Report: Psychosis Musculoskeletal: Report: No Pertinent Hx Rheumatologic: Report: No pertinent Hx Infectious Disease: Report: No Pertinent Hx Renal/: Report: No Pertinent Hx Endocrine: Report: Diabetes, Hypothyroidism Dermatology: Report: No Pertinent Hx - Past Surgical History Past Surgical History: Other (Craniotomy.) Family Medical History - Family Member Mother History Unknown: Yes Ethnicity: Living Status: Unknown Hx Family Diabetes: Yes Social History Smoke: No Alcohol: None Drugs: None Lives: Senior Living - Medications Home Medications: Home Medication Medication Instructions Recorded Type Divalproex [Jan HUGHES] 750 mg PO BID tcp 01/05/[address] Angelo HUGHES] 750 mg PO BID tcp 01/05/18 Rx Glipizide [Glucotrol] 10 mg PO BIDAC tab 01/05/18 Rx Magnesium Hydroxide [Milk of 30 ml PO HS PRN udc 01/05/18 Rx Magnesia] QUEtiapine Fumarate [SEROquel] 150 mg PO HS tab 01/05/18 Rx metFORMIN [Glucophage] 850 mg PO TID tab 01/05/18 Rx Acetaminophen [Tylenol] 650 mg PO Q4HR PRN #0 tab 03/23/18 Rx Al Hyd/Mg Hyd/Simethicone [Maalox] 30 ml PO Q4H PRN #0 udc 03/23/18 Rx Atorvastatin Calcium [Lipitor] 40 mg PO HS #0 tab 03/23/18 Rx Docusate Sodium [Colace] 250 mg PO BID #0 sgl 03/23/18 Rx Famotidine [Pepcid] 20 mg PO DAILY #0 tab 03/23/18 Rx Insulin Aspart Sliding Scale See Protocol SUBQ ACHS #0 unit 03/23/18 Rx [NovoLOG INSULIN SLIDING SCALE] Insulin Aspart, Recombinant 16 units SUBQ TIDWM unit 03/23/18 Rx [NovoLOG] Insulin Detemir [Levemir Insulin] 20 units SUBQ HS #0 vial 03/23/18 Rx Levothyroxine [Synthroid] 0.088 mg PO QDAC #0 tab 03/23/18 Rx Lisinopril [Zestril] 5 mg PO BID #0 tab 03/23/18 Rx Magnesium Hydroxide [Milk of 30 ml PO DAILY PRN #0 udc 03/23/18 Rx Magnesia] Multivitamin [Theragran] 1 tab PO DAILY #0 tab 03/23/18 Rx Sodium Chloride Tab [NaCL Tab] 1 gm PO TID #0 tab 03/23/18 Rx cloNIDine HCl [Catapres] 0.1 mg PO Q6HR PRN #0 tab 03/23/18 Rx - Allergies Allergies/Adverse Reactions: Allergies Allergy/AdvReac Type Severity Reaction Status Date / Time No Known Allergies Allergy Verified 05/07/18 17:55 Review of Systems - Review of Systems Constitutional: Report: No Significant Eyes: Report: No Significant ENT: Report: No Significant Respiratory: Report: No Significant Cardiovascular: Report: No Significant Gastrointestinal: Report: No Significant Genitourinary: Report: No Significant Musculoskeletal: Report: No Significant Skin: Report: No Significant Neurological: Report: No Significant Physical Exam - Physical Exam HEENT: Report: Ears Nose Throat within normal limits, Pharnyx within normal limits, Pale Conjunctiva Neck: Report: Within normal limits Cardiovascular Systems: Report: +s1/s2 noted, Regular, Rate and Rhythm Respiratory: Report: Breath Sounds are within normal limits, Clear to Auscultation of lung kelley Abdomen: Report: Non-tender to palpation, Bowel Sounds are within normal limits Back: Report: Inspection of back is within normal limits. Extremities: Report: Non-tender to palpation., No pedal edema was noted on inspection Skin: Report: Color of skin is within normal limits, Warm, Dry Neuro/Psych: Report: A+Ox3, CN II-XII intact, No new focal deficits Other Systems Exam: Craniotomy scar noted. Some indentation on by temporal area noted. - Lab Results All Lab Results last 24 hours: Laboratory Results - last 24 hr 05/07/18 05/07/18 05/07/18 17:45 17:45 17:45 WBC 6.3 RBC 4.92 Hgb 15.3 Hct 46.4 MCV 94.1 MCH 31.1 H MCHC Differential 33.0 RDW 13.2 Plt Count 126 L MPV 7.1 Neutrophils % 40.4 Lymphocytes % 42.4 Monocytes % 14.8 H Eosinophils % 2.3 Basophils % 0.1 Sodium 132 L Potassium 4.3 Chloride 100 Carbon Dioxide 23.1 Anion Gap 13.2 BUN 15 Creatinine 0.8 Est GFR ( Amer) > 60.0 Est GFR (Non-Af Amer) > 60.0 BUN/Creatinine Ratio 18.8 Glucose 316 H POC Glucose Hemoglobin A1c % 8.8 H Calcium 9.6 Total Bilirubin 0.4 AST 11 L ALT 10 Alkaline Phosphatase 50 Total Protein 6.7 Albumin 4.4 Globulin 2.3 Albumin/Globulin Ratio 1.9 H Triglycerides 109 Cholesterol 110 LDL Cholesterol Direct 51 L HDL Cholesterol 40 TSH Urine Source Urine Color Urine Clarity Urine pH Ur Specific Register Urine Protein Urine Glucose (UA) Urine Ketones Urine Blood Urine Nitrate Urine Bilirubin Urine Urobilinogen Ur Leukocyte Esterase Urine RBC Urine WBC Ur Epithelial Cells Urine Bacteria Valproic Acid RPR 05/07/18 05/07/18 05/07/18 17:45 17:45 17:45 WBC RBC Hgb Hct MCV MCH MCHC Differential RDW Plt Count MPV Neutrophils % Lymphocytes % Monocytes % Eosinophils % Basophils % Sodium Potassium Chloride Carbon Dioxide Anion Gap BUN Creatinine Est GFR ( Amer) Est GFR (Non-Af Amer) BUN/Creatinine Ratio Glucose POC Glucose Hemoglobin A1c % Calcium Total Bilirubin AST ALT Alkaline Phosphatase Total Protein Albumin Globulin Albumin/Globulin Ratio Triglycerides Cholesterol LDL Cholesterol Direct HDL Cholesterol TSH 1.39 Urine Source Urine Color Urine Clarity Urine pH Ur Specific Register Urine Protein Urine Glucose (UA) Urine Ketones Urine Blood Urine Nitrate Urine Bilirubin Urine Urobilinogen Ur Leukocyte Esterase Urine RBC Urine WBC Ur Epithelial Cells Urine Bacteria Valproic Acid 90.9 RPR NONREACTIVE 05/07/18 05/07/18 05/08/18 18:37 21:58 06:27 WBC RBC Hgb Hct MCV MCH MCHC Differential RDW Plt Count MPV Neutrophils % Lymphocytes % Monocytes % Eosinophils % Basophils % Sodium Potassium Chloride Carbon Dioxide Anion Gap BUN Creatinine Est GFR ( Amer) Est GFR (Non-Af Amer) BUN/Creatinine Ratio Glucose POC Glucose 231 H 275 H Hemoglobin A1c % Calcium Total Bilirubin AST ALT Alkaline Phosphatase Total Protein Albumin Globulin Albumin/Globulin Ratio Triglycerides Cholesterol LDL Cholesterol Direct HDL Cholesterol TSH Urine Source CLEAN C Urine Color YELLOW Urine Clarity CLEAR Urine pH 6.0 Ur Specific Register 1.010 Urine Protein NEGATIVE Urine Glucose (UA) >=1000 H Urine Ketones 15 H Urine Blood NEGATIVE Urine Nitrate NEGATIVE Urine Bilirubin NEGATIVE Urine Urobilinogen 1.0 Ur Leukocyte Esterase NEGATIVE Urine RBC 0-2 H Urine WBC 0-2 Ur Epithelial Cells RARE Urine Bacteria NONE SEEN Valproic Acid RPR - Assessment Assessment: Acute exacerbation of psychiatric disorder. Diabetes mellitus. Hypertension. Hypothyroidism. Hyperlipidemia. DJD History of hemorrhagic CVA. - Plan Plan: Psychiatric evaluation and management deferred to psychiatrist. Resume his diabetes medication as well as antihypertensive medicine and statin as ordered in penitentiary. Monitor blood sugar and blood pressure. General nursing care. Follow lab. Symptoms management. Medication management. Continue current treatment plan. We will continue to follow this patient during his stay in the hospital. I sincerely thank you for giving the opportunity to participate in a mutual patient of ours.
[2018-05-08] MEDS: Insulin Detemir 100 units/mL 10mL Vial SUBQ SCH (20:36)
--- NOTE | 2018-05-09 04:35 | Psychosocial Evaluation ---
DATE OF SERVICE: 05/07/2018 IDENTIFYING DATA: The patient is a 57-year-old resident of [facility]. Information obtained by directly interviewing the patient as well as reviewing the admission papers and they are reliable. JUSTIFICATION FOR HOSPITALIZATION: The patient is admitted here on a voluntary basis in view of his acute agitation and aggressive behavior. CHIEF COMPLAINT: "I do not know." HISTORY OF PRESENT ILLNESS: This is one of multiple psychiatric hospitalizations for this patient who was hospitalized in March 2018. The patient is reported to have been out of control, screaming and yelling and throwing stuff around, and has been getting aggressive towards the staff, and hence, the patient has to be admitted over here for stabilization. PAST PSYCHIATRIC HISTORY: Please refer to the above. MEDICAL HISTORY: Physical examination is requested to be done by Dr. Spears. SUBSTANCE ABUSE HISTORY: None. PHYSICAL AND SEXUAL ABUSE HISTORY: None. LEGAL PROBLEMS: None at this time. STRENGTH AND ASSETS: The patient is motivated. MENTAL STATUS EXAMINATION: The patient is a 57-year-old, looking his stated age, superficially cooperative. The patient is getting easily agitated. Paranoid delusions are noted, but denies any command hallucinations. The patient's insight and judgment are also noted to be very much impaired. Impulse control seems to be extremely poor. The patient has no insight into his illness. The patient is getting easily agitated. When I am asking the questions, the patient is noted to be alert and aware that he is in the hospital. Attention span and concentration, however, are noted to be very poor. Mental status examination is significant for this patient being aggressive in behavior and he is a clear danger to self and others. The patient is not able to care for self. The patient is very agitated and has been focusing on the other staff at this time. DIAGNOSTIC IMPRESSION: AXIS I: A. Psychotic disorder, not otherwise specified. B. Rule out bipolar disorder with psychotic symptoms. AXIS II: None. AXIS III: As per the primary care physician. IMMEDIATE TREATMENT PLAN: The patient is going to be observed on the inpatient unit, provided with supportive psychotherapy. The patient is going to be closely monitored. Once stabilized, the patient is going to be discharged to [facility] to be followed up on an outpatient basis. JOB# [id number]
[2018-05-09] MEDS: Levothyroxine 0.088 Mg Tab PO SCH (06:47)
[2018-05-09] MEDS: INSULIN ASPART SLIDING SCALE 100 UNITS/ML UNIT SUBQ SCH ×4 (06:49→21:03)
[2018-05-09] MEDS: Multivitamin Tab PO SCH (09:11)
[2018-05-09] MEDS ORDERED: Haloperidol Lactate 5 mg/mL 1mL Vial IM ONE (11:00)
[2018-05-09] MEDS ORDERED: Haloperidol Lactate 5 mg/mL 1mL Vial ONE (11:05)
[2018-05-09] MEDS: Insulin Detemir 100 units/mL 10mL Vial SUBQ SCH (21:02)
--- NOTE | 2018-05-10 00:15 | Progress Notes ---
DATE: 05/09/2018 PSYCHIATRIC PROGRESS NOTE SUBJECTIVE: Staff was spoken to. The patient is interviewed. Mood is noted to be irritable. Affect is constricted. Insight and judgment at this time are noted to be still impaired. Impulse control seems to be limited. The patient has been testing the limits and has been screaming and yelling and the patient has to be given the 2 mg of Haldol along with ____ mg of Ativan to calm him down. In view of the psychosis and acute mood swings, the patient is going to be placed on a little bit of a higher dose of the Seroquel, which is going to be increased to 200 mg and the patient is going to be followed up. ASSESSMENT: The patient is very impulsive. PLAN: To closely monitor the patient. I encouraged the patient to verbalize the concerns rather than to act out. JOB# [id number]
[2018-05-10] MEDS: INSULIN ASPART SLIDING SCALE 100 UNITS/ML UNIT SUBQ SCH ×4 (06:59→21:43)
[2018-05-10] MEDS: Levothyroxine 0.088 Mg Tab PO SCH (07:00)
[2018-05-10] MEDS: Multivitamin Tab PO SCH (09:03)
--- NOTE | 2018-05-10 16:19 | Consultation ---
DATE OF CONSULTATION: 05/09/2018 REFERRING PHYSICIAN: Dr. Bertha Franz. TYPE OF CONSULTATION: Psychology. HISTORY OF PRESENT ILLNESS: The patient is a 57-year-old male. The patient is a resident of [facility]. The patient is known to this principal technical writer from multiple previous hospitalizations. The following is by review of the medical record and by patient's self report. The patient is being admitted due to acute agitation and aggressive behavior. The staff at the patient's facility report screaming and yelling episodes as well as throwing items and being aggressive with the staff at his facility. The patient was uncontainable and nonredirectable and therefore transferred and admitted here for stabilization. The patient did not answer questions about suicidal ideation or homicidal ideation, plan or intention. The patient is unable to verbally contract for safety. MEDICAL HISTORY: Please see history and physical by Dr. Spears. PAST PSYCHIATRIC HISTORY: The patient has a history of psychosis. The patient is being seen by a psychiatrist and a psychologist at his placement. SUBSTANCE ABUSE HISTORY: The patient did not answer this question. PSYCHOSOCIAL HISTORY: The patient did not answer questions about occupational history or educational history or shinto affiliation. The patient did not answer questions about history of physical or sexual abuse. The patient did not answer the question about current legal problems. Overall, the patient is guarded and argumentative. The patient is declining to respond to the clinical interview questions. MENTAL STATUS EXAMINATION: The patient appears to be his stated age. The patient's attitude is guarded and suspicious as well as uncooperative. Speech is loud with yelling episodes. Eye contact is poor. Mood is irritable and angry. Affect is mood congruent. The patient did not answer questions about suicidal ideation or homicidal ideation, plan or intention. The patient denied any auditory hallucinations. There is evidence to suggest that the patient has paranoid ideation and possible paranoid delusions. The patient's behavior has been difficult to redirect and has required emergency medicine on the day of admission. Impulse control is inadequate. Concentration is poor. The patient continued to get easily agitated during the clinical interview. The patient did not participate in the memory assessment. Sensorium is alert and oriented to self and place. The patient did not participate in the interpretation of proverbs. Insight is impaired. Judgment is impaired. DIAGNOSTIC IMPRESSION: AXIS I: 1. Psychotic disorder, not otherwise specified. 2. Impulse control disorder, not otherwise specified. AXIS II: Deferred. AXIS III: Please see history and physical by Dr. Spears. TREATMENT PLAN: The patient has been seen by Dr. Franz for psychiatric evaluation and for the management of the patient's psychotropic medications. We will provide supportive psychotherapy to include limit setting and de-escalation. We will provide motivational enhancement for the patient to become compliant and stay compliant with all aspects of his care and treatment plan. The patient was given emergency medicine on the day of his admission due to out of control behavior with yelling and screaming episodes as well as aggressive behavior. We will provide coping strategies for chronic mental illness as well as phase of life issues. We will encourage the patient to verbally contract for safety to include no self-harm as well as no harm to others. We will encourage the patient to be able to demonstrate emotional and self-regulation prior to his discharge. Thank you, Dr. Franz for this consult and the opportunity to participate in this patient's care. [facility]# [id number]
[2018-05-10] MEDS: Insulin Detemir 100 units/mL 10mL Vial SUBQ SCH (21:44)
--- NOTE | 2018-05-10 23:19 | Progress Notes ---
DATE: 05/10/2018 SUBJECTIVE: Staff was spoken to. The patient is interviewed. Mood is noted to be irritable. Affect is constricted. Coping skills are noted to be still poor. The patient has been having difficult time to cope with the stress. The patient is getting easily agitated, but today the patient has been able to verbalize the concerns rather than to act out. No side effects to the medications are noted. The patient is being closely monitored for any fall risk. The patient is currently on 750 mg twice a day of the Depakote and 200 mg of the Seroquel at nighttime. ASSESSMENT: The patient is still impulsive. PLAN: To continue the patient with supportive therapy and followup. [facility]# [id number]
[2018-05-11] MEDS: INSULIN ASPART SLIDING SCALE 100 UNITS/ML UNIT SUBQ SCH ×4 (06:55→20:44)
[2018-05-11] MEDS: Levothyroxine 0.088 Mg Tab PO SCH (07:06)
[2018-05-11] MEDS: Multivitamin Tab PO SCH (09:45)
[2018-05-11] MEDS: Insulin Detemir 100 units/mL 10mL Vial SUBQ SCH (20:46)
--- NOTE | 2018-05-12 00:20 | Progress Notes ---
DATE: 05/11/2018 PSYCHIATRIC PROGRESS NOTE SUBJECTIVE: Staff was spoken to. The patient is interviewed. Mood is noted to be irritable. Affect is constricted. The patient has paranoia, but aggressive behavior, seems to be little bit coming under control. The patient is currently on 200 of the Seroquel and 750 mg twice a day of the Depakote. The patient is being closely monitored with these medications. ASSESSMENT: The patient is still impulsive. PLAN: To continue the patient with the supportive therapy and followup. JOB# [id number]
[2018-05-12] MEDS: Levothyroxine 0.088 Mg Tab PO SCH (06:47)
[2018-05-12] MEDS: INSULIN ASPART SLIDING SCALE 100 UNITS/ML UNIT SUBQ SCH ×5 (06:49→20:30)
[2018-05-12] MEDS: Multivitamin Tab PO SCH (09:21)
[2018-05-12] MEDS: Insulin Detemir 100 units/mL 10mL Vial SUBQ SCH (20:31)
--- NOTE | 2018-05-13 03:11 | Progress Notes ---
DATE: 05/12/2018 PSYCHIATRIC PROGRESS NOTE SUBJECTIVE: Staff was spoken to. The patient is interviewed. Mood is noted to be irritable. Affect is constricted. Insight and judgment are noted to be still impaired. Impulse control seems to be limited. The patient has been, however, able to verbalize the concerns. Aggressive behavior seems to be coming under control. No side effects to the medications are noted. ASSESSMENT: The patient is still impulsive. PLAN: To continue the patient with the supportive therapy, encouraged the patient to verbalize the concerns rather than to act out. JOB# [id number]
[2018-05-13] MEDS: INSULIN ASPART SLIDING SCALE 100 UNITS/ML UNIT SUBQ SCH ×4 (06:42→20:47)
[2018-05-13] MEDS: Levothyroxine 0.088 Mg Tab PO SCH (06:47)
[2018-05-13] MEDS: Multivitamin Tab PO SCH (08:14)
[2018-05-13] MEDS: Insulin Detemir 100 units/mL 10mL Vial SUBQ SCH (20:48)
--- NOTE | 2018-05-14 03:17 | Progress Notes ---
DATE: 05/13/2018 SUBJECTIVE: Staff was spoken to. The patient is interviewed. Mood is noted to be irritable. Affect is constricted. The patient's insight and judgment are improving. Impulse control seems to be improving. The patient is not presenting with any of the aggressive behavior like before. The patient has been able to tolerate the Seroquel and then the Depakote. ASSESSMENT: The patient is stabilizing. PLAN: To continue the patient with the current medications and followup. JOB# [id number]
[2018-05-14] MEDS: Levothyroxine 0.088 Mg Tab PO SCH (06:41)
[2018-05-14] MEDS: INSULIN ASPART SLIDING SCALE 100 UNITS/ML UNIT SUBQ SCH ×2 (06:42→11:34)
[2018-05-14] MEDS: Multivitamin Tab PO SCH (09:19)
--- NOTE | 2018-05-14 14:25 | Progress Notes ---
DATE: 05/14/2018 SUBJECTIVE: Staff was spoken to. The patient is interviewed. Mood is noted to be anxious. The patient's insight and judgment are noted to be improving. Impulse control is noted to be fair. No side effects to the medications are noted. The patient is not presenting with any impulsive behavior. ASSESSMENT: The patient is stabilizing. PLAN: To discharge the patient today for followup on outpatient basis. [facility]# [id number]
--- NOTE | 2018-05-17 13:55 | Discharge Summary ---
DATE OF DISCHARGE: 05/14/2018 IDENTIFYING DATA: The patient is a 57-year-old male, resident of the [facility]. JUSTIFICATION OF HOSPITALIZATION: The patient is admitted on voluntary basis in view of his acute agitation and aggressive behavior. CHIEF COMPLAINT: "I do not know." DIAGNOSES AT THE TIME OF ADMISSION: AXIS I: A. Psychotic disorder, not otherwise specified. B. Rule out bipolar disorder with psychotic symptoms. AXIS II: None. AXIS III: As per Dr. Spears. HOSPITAL COURSE AND RESPONSE TO TREATMENT: The patient has been observed on the inpatient unit, provided with supportive psychotherapy. The patient continues to be aggressive and agitated. The patient has been closely monitored and the Seroquel was increased to 150 mg at bedtime and the patient also has been placed on the Depakote, which was given at 750 mg twice a day. With these medications, the patient was observed and no seizures are noted and the patient's impulsivity started to improve and hence resolved and the patient was discharged on 05/14/2018 to [facility] for further followup. MENTAL STATUS EXAMINATION: At the time of discharge noted to be stable. The patient is not noted to be a danger to self or others. DIAGNOSES AT THE TIME OF DISCHARGE: AXIS I: Bipolar disorder mixed with psychotic symptoms. AXIS II: None. AXIS III: As per Dr. Spears. AFTERCARE PLAN: The patient is discharged to [facility] for further followup. JOB# [id number]
== END 2018-05-14 15:45 | DRG 885 ==
LOC: ER 17:16 → GERO2 17:26
PROVIDERS: ADMIT Psychiatry & Neurology Psychiatry; ATTEND Psychiatry & Neurology Psychiatry
DX: F23 Brief psychotic disorder (principal); F06.34 Mood disorder due to known physiological condition with mixed features; I10 Essential (primary) hypertension; E78.5 Hyperlipidemia, unspecified; E03.9 Hypothyroidism, unspecified; I73.9 Peripheral vascular disease, unspecified; K21.9 Gastro-esophageal reflux disease without esophagitis; M19.90 Unspecified osteoarthritis, unspecified site; E11.42 Type 2 diabetes mellitus with diabetic polyneuropathy; F63.9 Impulse disorder, unspecified; Z86.73 Personal history of transient ischemic attack (TIA), and cerebral infarction without residual deficits; Z79.4 Long term (current) use of insulin
CPT/HCPCS: 36415-UA; 80053-TC; 80061-TC; 80164-TC; 81001-TC; 82947-TC; 82948-90; 83036-90; 84443-TC; 85025-TC; 86592-TC; 93005; G0410; J1630; J1815; J2060; Z7610

== ENCOUNTER 2018-06-17 21:22 | Inpatient (IN) | payer MEDICARE, MEDICAID ==
[2018-06-17] MEDS ORDERED: Sodium Chloride 0.9% 1,000 ML IV ONE (21:45)
[2018-06-17 22:08] LABS: % BASOPHILS 0.3 % (0.0-2.0); % EOSINOPHILS 0.2 % (0.0-5.0); % LYMPHOCYTES 16.5 % (20.0-50.0); % MONOCYTES 12.3 % (2.0-10.0); % NEUTROPHILS 70.7 % (40.0-80.0); HEMATOCRIT 44.6 % (41.0-60); HEMOGLOBIN 15.2 gm/dL (12-16); LYMPHOCYTE ABSOLUTE 1.2 Th/cmm (1.5-3.0); MEAN CELL VOLUME 94.2 fl (80-99); MEAN CORPUSCULAR HEMOGLOBIN 32.2 pg (26.0-30.0); MEAN CORPUSCULAR HGB CONC 34.2 pg (28.0-36.0); MEAN PLATELET VOLUME 8.4 fl; MONOCYTE ABSOLUTE 0.9 Th/cmm (0.3-1.0); PLATELET COUNT 100 Th/cmm (150-400); RED BLOOD COUNT 4.73 Mil/cmm (4.30-5.70); RED CELL DISTRIBUTION WIDTH 12.9 % (11.5-20.0); WHITE BLOOD COUNT 7.1 Th/cmm (4.8-10.8)
[2018-06-17 22:22] LABS: ANION GAP 29.4 (7.0-16.0); BUN - UREA NITROGEN 31 mg/dL (7-25); CALCIUM SERUM 9.7 mg/dL (8.6-10.3); CHLORIDE 96 mEq/L (98-107); CREATININE - SERUM 1.3 mg/dL (0.7-1.3); GFR AFRICAN-AMERICAN > 60.0 ml/min (>90); GFR NON AFRICAN-AMERICAN > 60.0 ml/min; POTASSIUM SERUM 5.3 mEq/L (3.5-5.1); SODIUM SERUM 130 mEq/L (136-145)
[2018-06-17 22:25] LABS: CARBON DIOXIDE 9.9 mEq/L (21.0-31.0)
[2018-06-17 22:26] LABS: GLUCOSE 507 mg/dL (70-105)
[2018-06-17] MEDS ORDERED: Sodium Bicarbonate 8.4% 50mEq PFS IVP STA (22:32)
[2018-06-17] MEDS ORDERED: INSULIN HUMAN REGULAR 100 UNITS/ML UNIT IV ONE (22:33)
[2018-06-17] MEDS ORDERED: INSULIN HUMAN REGULAR 100 UNITS/ML UNIT ONE (22:41)
--- NOTE | 2018-06-17 22:46 | ED Physician Chart ---
ED Chief Complaint/HPI - Patient Information Date Seen:: 06/17/18 Time Seen:: 21:30 Chief Complaint:: AMS History of Present Illness:: onset x 3 hours of AMS, Agitation, and ALOC; no report of trauma, H/As, S/T, neck pain, C/P, SOB, Abd. Pain, A/N/V/D/C, fever, chills, or urinary s/s Allergies:: Allergies Allergy/AdvReac Type Severity Reaction Status Date / Time No Known Allergies Allergy Verified 05/07/18 17:55 Vitals:: Vital Signs - 8 hr 06/17/18 21:30 Temp 98.2 F HR 110 RR 20 BP 88/52 O2 Sat % 96 Historian:: Patient, EMS Review:: Nurse's Note Reviewed, Old Chart Reviewed, EMS run form Reviewed ED Review of Systems - Review of Systems General/Constitutional: No fever, No chills, No weight loss, Weakness, No diaphoresis, No edema, No loss of appetite Skin: No skin lesions, No rash, No bruising Head: No headache, No light-headedness Eyes: No loss of vision, No pain, No diplopia ENT: No earache, No nasal drainage, No sore throat, No tinnitus Neck: No neck pain, No swelling, No thyromegaly, No stiffness, No mass noted Cardio Vascular: No chest pain, No palpitations, No PND, No orthopnea, No edema Pulmonary: SOB, No cough, No sputum, No wheezing GI: Nausea, Vomiting, Diarrhea, No pain, No melena, No hematochezia, No constipation, No hematemesis G/U: No dysuria, No frequency, No hematuria, No nacturia Musculoskeletal: No bone or joint pain, No back pain, No muscle pain Endocrine: No polyuria, No polydipsia Psychiatric: Prior psych history, Depression, Anxiety, No suicidal ideation, No homicidal ideation, No auditory hallucination, No visual hallucination Hematopoietic: No bruising, No lymphadenopathy Allergic/Immuno: No urticaria, No angioedema Neurological: No syncope, No focal symptoms, No weakness, No paresthesia, No headache, No seizure, No dizziness, Confusion, No vertigo ED Past Medical History - Past Medical History Obtainable: Yes Past Medical History: HTN, Seizures Family History: HTN Social History: Non Smoker, No Alcohol, No Drug Use, Single, Care Facility Surgical History: None Psychiatricy History: Bipolar Medication: Reviewed Family Medical History - Family Member Mother History Unknown: Yes Ethnicity: Living Status: Unknown Hx Family Diabetes: Yes ED Physical Exam - Physical Examination General/Constitutional: Awake, Well-developed, well-nourished, Alert, No distress, GCS 15, Non-toxic appearing, Ambulatory Head: Atraumatic Eyes: Lids, conjuctiva normal, PERRL, EOMI Skin: Nl inspection, No rash, No skin lesions, No ecchymosis, Well hydrated, No lymphadenopathy ENMT: External ears, nose nl, TM canals nl, Nasal exam nl, Lips, teeth, gums nl , Oropharynx nl, Tonsils nl Neck: Nontender, Full ROM w/o pain, No JVD, No nuchal rigidity, No bruit, No mass, No stridor Respiratory: Nl effort/Exclusion, Clear to Auscultation, No Wheeze/Rhonchi/Rales Cardio Vascular: RRR, No murmur, gallop, rubs, NL S1 S2, Carotid/Femoral/Distal pulses equal bilaterally GI: No tenderness/rebounding/guarding, No organomegaly, No hernia, Normal BS's, Nondistended, No mass/bruits, No McBurney tenderness, Rectum exam nl : No CVA tenderness Extremities: No tenderness or effusion, Full ROM, normal strength in all extremities, No edema, Normal digits & nails Neuro/Psych: Alert/oriented, DTR's symmetric, Normal sensory exam, Normal motor strength, Judgement/insight normal, Mood normal, Normal gait, No focal deficits Misc: Normal back, No paraspinal tenderness ED Labs/Radiology/EKG Results - Lab Results Results: Laboratory Tests 06/17/18 06/17/18 06/17/18 22:00 22:00 22:33 WBC 7.1 RBC 4.73 Hgb 15.2 Hct 44.6 MCV 94.2 MCH 32.2 H MCHC Differential 34.2 RDW 12.9 Plt Count 100 L MPV 8.4 Neutrophils % 70.7 Lymphocytes % 16.5 L Monocytes % 12.3 H Eosinophils % 0.2 Basophils % 0.3 Sodium 130 L Potassium 5.3 H Chloride 96 L Carbon Dioxide 9.9 L* Anion Gap 29.4 H BUN 31 H Creatinine 1.3 Est GFR ( Amer) > 60.0 Est GFR (Non-Af Amer) > 60.0 BUN/Creatinine Ratio 23.8 Glucose 507 H* POC Glucose 402 H Calcium 9.7 Comments:: Reviewed - Radiology Results Comments:: NAD - EKG Interpretations EKG Time:: 22:09 Rate & Rhythm: 120; ST Comments:: non-specific st-t changes ED Septic Shock - . Is Septic Shock (SBP<90, OR Lactate>4 mmol\L) present?: No - <6hrs of presentation: Vital Signs: Vital Signs - 8 hr 06/17/18 21:30 Temp 98.2 F HR 110 RR 20 BP 88/52 O2 Sat % 96 ED Reassessment (Disposition) - Reassessment Reassessment Condition:: Improved - Diagnosis Diagnosis:: Agitation; AMS; ALOC; Hypotension; Dehydration; Hypovolemia; DKA; DM; Acidosis; Hyponatremia; Hyperkalemia; Tachycardia; Hyperglycemia; Metabolic Acidosis - Aftercare/Follow up Instructions Aftercare/Follow-Up Instructions:: Counseled pt regarding lab results/diagnosis & need follow up, Counseled pt & family regarding lab results/diagnosis & need follow up - Patient Disposition Discharge/Transfer:: Acute Care w/in this hosp Accepting Physician:: Dr. Spears Time Called:: 4 Time Responded:: 23:15 Admitted to:: ICU Spoke to:: Dr. Spears Admitting Medical Physician:: Dr. Spears Condition at Disposition:: Stable, Improved
[2018-06-17 22:59] LABS: DDIMER QUANT < 100 ng/mL (100-400)
[2018-06-17 23:04] LABS: pH 7.25 (7.35-7.45)
[2018-06-17 23:05] LABS: ALB/GLOB RATIO 1.4 (1.0-1.8); ALBUMIN 4.2 gm/dL (4.2-5.5); ALKALINE PHOSPHATASE 59 U/L (34-104); AMYLASE SERUM 81 U/L (29-103); BILIRUBIN,TOTAL 0.6 mg/dL (0.3-1.0); BUN - UREA NITROGEN 31 mg/dL (7-25); CHOLESTEROL 120 mg/dL (<200); CREATININE - SERUM 1.3 mg/dL (0.7-1.3); CREATININE KINASE 80 U/L (30-223); GFR AFRICAN-AMERICAN > 60.0 ml/min (>90); GFR NON AFRICAN-AMERICAN > 60.0 ml/min; HDL -HIGH DENSITY LIPOPROTEIN 39 mg/dL (23-92); LIPASE 19 U/L (11-82); SGOT 13 U/L (13-39); SGPT/ALT 14 U/L (7-52); SODIUM SERUM 130 mEq/L (136-145); TOTAL PROTEIN,SERUM 7.3 gm/dL (6.0-8.3); TRIGLYCERIDES 93 mg/dL (<150)
[2018-06-17 23:05] LABS: ALLEN TEST Y
[2018-06-17 23:09] LABS: ANION GAP 29.4 (7.0-16.0); CARBON DIOXIDE 9.9 mEq/L (21.0-31.0); CHLORIDE 96 mEq/L (98-107); GLUCOSE 507 mg/dL (70-105); INR 1.01 (0.5-1.4); POTASSIUM SERUM 5.3 mEq/L (3.5-5.1); PROTHROMBIN TIME (TEST) 10.5 SECONDS (9.5-11.5)
[2018-06-17 23:10] LABS: CALCIUM SERUM 9.7 mg/dL (8.6-10.3)
[2018-06-17 23:48] LABS: URINE SOURCE RANDOM
[2018-06-17 23:49] LABS: URINE BLOOD NEGATIVE (NEGATIVE); URINE GLUCOSE (UA) >=1000 mg/dL (NEGATIVE); URINE KETONE >=80 mg/dL (NEGATIVE); URINE LEUKOCYTE ESTERASE NEGATIVE (NEGATIVE); URINE MICROSCOPIC INDICATED? YES; URINE NITRATE NEGATIVE (NEGATIVE); URINE PROTEIN NEGATIVE (NEGATIVE); URINE UROBILINOGEN 0.2 E.U./dL (0.2 - 1.0)
[2018-06-17 23:52] LABS: URINE BILIRUBIN NEGATIVE (NEGATIVE); URINE CLARITY CLEAR (CLEAR); URINE COLOR YELLOW
[2018-06-17 23:53] LABS: URINE BACTERIA OCCASIONAL /hpf (NONE SEEN); URINE EPITHELIAL CELLS OCCASIONAL /lpf (FEW); URINE RBC 0-2 /hpf (0-5); URINE WBC 0-2 /hpf (0-5)
[2018-06-18] MEDS ORDERED: Sodium Chloride 0.9% 1,000 ML IV ONE (00:05)
[2018-06-18 00:27] LABS: MAGNESIUM 2.1 mg/dL (1.9-2.7); PHOSPHOROUS 5.9 mg/dL (2.5-5.0)
[2018-06-18] MEDS ORDERED: Piperacillin Sodium/Tazobact 3.375 gm Vial IV ONE ×2 (01:42→07:24)
[2018-06-18] MEDS ORDERED: NITROGLYCERIN OINT 2% 1 INCH PACKET TP ONE (01:42)
[2018-06-18] MEDS: Sodium Chloride 0.45% 1,000 ML IV SCH ×2 (02:00→10:05)
[2018-06-18] MEDS ORDERED: D5-0.45NS 1,000 ML IV SCH (04:00)
[2018-06-18] MEDS: NITROGLYCERIN OINT 2% 1 INCH PACKET TP SCH ×3 (05:12→17:26)
[2018-06-18 07:05] LABS: ALB/GLOB RATIO 1.4 (1.0-1.8); ALBUMIN 3.3 gm/dL (4.2-5.5); ALKALINE PHOSPHATASE 45 U/L (34-104); ANION GAP 11.8 (7.0-16.0); BILIRUBIN,TOTAL 0.4 mg/dL (0.3-1.0); BUN - UREA NITROGEN 24 mg/dL (7-25); CALCIUM SERUM 8.3 mg/dL (8.6-10.3); CARBON DIOXIDE 21.3 mEq/L (21.0-31.0); CHLORIDE 106 mEq/L (98-107); CREATININE - SERUM 0.8 mg/dL (0.7-1.3); CREATININE KINASE 62 U/L (30-223); GFR AFRICAN-AMERICAN > 60.0 ml/min (>90); GFR NON AFRICAN-AMERICAN > 60.0 ml/min; MAGNESIUM 2.2 mg/dL (1.9-2.7); POTASSIUM SERUM 4.1 mEq/L (3.5-5.1); SGOT 10 U/L (13-39); SGPT/ALT 9 U/L (7-52); SODIUM SERUM 135 mEq/L (136-145); TOTAL PROTEIN,SERUM 5.7 gm/dL (6.0-8.3)
[2018-06-18 07:25] LABS: GLUCOSE 230 mg/dL (70-105)
[2018-06-18 07:52] LABS: pH 7.45 (7.35-7.45)
[2018-06-18 07:53] LABS: ALLEN TEST Positive
--- NOTE | 2018-06-18 08:38 | Diagnostic Imaging Report ---
Portable chest x-ray History: Pain Allowing for portable technique the heart size is normal. No focal pulmonary parenchymal processes. No hilar or mediastinal abnormalities. A zipper projects over the mid thoracic inlet region. This should be confirmed that this is on the skin surface. Impression: 1. No acute abnormalities 2. Zipper projecting over the upper mid chest at the thoracic inlet. This should be confirmed at the finding is on the skin surface.
[2018-06-18] MEDS ORDERED: Magnesium Hydroxide (MOM) 30 mL UDC PO PRN (10:58)
[2018-06-18] MEDS: D5-0.45NS 1,000 ML IV SCH ×2 (11:24→17:55)
[2018-06-18] MEDS: Insulin Detemir 100 units/mL 10mL Vial SUBQ SCH (11:32)
[2018-06-18] MEDS: INSULIN ASPART SLIDING SCALE 100 UNITS/ML UNIT SUBQ SCH ×2 (11:33→17:50)
--- NOTE | 2018-06-18 12:53 | History & Physical ---
ADMIT DATE: 06/18/2018 SAUL'S IDENTIFICATION: A 57-year-old male. CHIEF COMPLAINT: Sent to Emergency Room for evaluation of altered mental status. HISTORY OF PRESENT ILLNESS: A 57-year-old resident of [facility], has a diagnosis of diabetes mellitus, hypertension, hyperlipidemia, hypothyroidism along with history of hemorrhagic CVA and psychotic disorder, noted by nursing staff at facility that patient was agitated and was confused. The patient was sent to [facility] for Geropsych admission. When the patient arrived in the Emergency Room, the patient was worked up and noted to have diabetic ketoacidosis with bicarbonate of 9. The patient was admitted to ICU for further treatment. The patient has a significant underlying psychiatric history, unable to get meaningful history from the patient. PAST MEDICAL HISTORY: 1. Diabetes. 2. Hypertension. 3. Hyperlipidemia. 4. DJD. 5. Peripheral vascular disease. 6. History of hemorrhagic stroke. 7. Gastroesophageal reflux disease. MEDICATIONS: At the shelter, the patient is taking multiple medications, which includes atorvastatin, Depakote, Colace, Pepcid, insulin, Levemir regular sliding scale aspart, lisinopril, metformin, milk of magnesia, multivitamin, Seroquel tablet and sodium chloride tablet. ALLERGIES: The patient is not allergic to any medication. SOCIAL HISTORY: The patient resides in a shelter. No history of smoking cigarette, alcohol, or drug use. FAMILY MEDICAL HISTORY: Remarkable for diabetes and hypertension. REVIEW OF SYSTEMS: Extremely limited due to the patient's underlying psychotic illness. The patient does not recall how he got here. The patient currently denies any chest pain, short of breath, palpitation, dizziness, nausea, vomiting, diarrhea, dysuria, hematuria, hematochezia, melena. No seizure or syncopal episode. PHYSICAL EXAMINATION: GENERAL: Alert, awake, lying in the bed. VITAL SIGNS: Temperature 98.1, pulse 78, respiratory rate 18, blood pressure 100/65. HEENT: Normocephalic, atraumatic. Extraocular muscles intact. Tongue was pink and dry. NECK: Supple, no JVD, no hepatojugular reflux. No lymphadenopathy, thyromegaly or carotid bruit. HEART: Both heart sounds are regular. No S3, no S4. CHEST AND LUNGS: Equal in expansion, no expiratory wheezing. ABDOMEN: Soft and no guarding, no rigidity. Liver and spleen not palpable. No palpable mass. EXTREMITIES: No edema, no cyanosis. Peripheral pulses +1. No calf and tenderness. NEUROLOGIC: Alert and awake, follows command. Cranial nerves are intact. Power in upper and lower extremities 5+. Sensory to light touch intact. Babinskis in both toes are going down. No cerebral sign. AVAILABLE DIAGNOSTIC DATA: White count of 7.1, hemoglobin 15.2, platelet count of 100. PT and PTTs are normal. D-dimer is less than 100, pH of 7.25, pCO2 of 26, pO2 of 77, bicarbonate 13.8. Sodium 130, potassium 5.3, chloride 96, CO2 9.9, bicarbonate is 31, creatinine 1.3, anion gap of 29.4, blood sugar of 507. Liver functions are normal. Urinalysis more than 1000 glucose, ketones are more than 80, RBCs were 0-2, moderate ketones on the serum noted. Chest x-ray done in the Emergency Room on 06/17/2018, which is negative for any infiltrate or congestion. CLINICAL IMPRESSIONS: 1. Diabetic ketoacidosis with anion gap of 10 and 29. 2. Increasing agitation and altered mental status secondary to acute encephalopathy secondary to metabolic in etiology. 3. Diabetes mellitus. 4. Hypertension. 5. Hypothyroidism. 6. Hyponatremia secondary to volume depletion. 7. Psychotic disorder. 8. Degenerative joint disease. PLAN: 1. Admit the patient to ICU. 2. IV fluid. 3. Insulin drip. 4. Cardiac enzymes. 5. Broad-spectrum antibiotic. 6. Nitrates. 7. N.p.o. 8. Monitor electrolytes. 9. Monitor ABG. 10. Monitor mental status. 11. Appropriate home medicine reconciliation. 12. Psych consult. 13. Follow surgical consultant recommendation. 14. Further recommendations based on the available diagnostic data. 15. Care plan reviewed and discussed with staff. JOB# [id number]
--- NOTE | 2018-06-18 22:56 | Consultation ---
DATE OF CONSULTATION: 06/18/2018 IDENTIFYING INFORMATION: The patient is a 57-year-old male. REASON FOR CONSULTATION: I was asked to see this patient who has a history of bipolar disorder. The patient himself was a poor historian. He believes he is 58 years of age. He is not able to tell me the date, where he is, why he is here. He was admitted with altered level of consciousness, but no trauma. The patient himself unable to tell me the exact details of his history, unable to tell me the date, where he is, why he is here. He reports he never tried to harm himself. He reports sleeps well, eats well. PAST PSYCHIATRIC HISTORY: Bipolar disorder. The patient unable to give any more details. Denies prior substance abuse; however, is not a reliable historian. MEDICATIONS: The patient is on Seroquel 200 mg at bedtime as well as Depakote 750 twice a day. FAMILY AND SOCIAL HISTORY: Reports single, never . 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 He used to drink heavily. MENTAL STATUS EXAMINATION: His long or short term memory is poor, unable to tell his age, where he is, why he is here. He denies any suicidal ideation, homicidal ideation; however, is not a reliable historian. His insight and judgment is impaired. IMPRESSION AXIS I: Bipolar disorder, depressed, probably rule out dementia. MEDICAL DIAGNOSES: Per medical doctor, PLAN: Recommend continue medication. The patient will follow up with the psychiatrist upon discharge. Continues to be agitated, may need to go to [facility]. Thank you very much for allowing me to participate in the care of this most interesting gentleman. JOB# [id number]
[2018-06-19] MEDS: NITROGLYCERIN OINT 2% 1 INCH PACKET TP SCH ×3 (00:42→12:29)
[2018-06-19] MEDS: INSULIN ASPART SLIDING SCALE 100 UNITS/ML UNIT SUBQ SCH ×3 (00:49→12:56)
[2018-06-19 06:59] LABS: HEMATOCRIT 40.4 % (41.0-60); HEMOGLOBIN 13.8 gm/dL (12-16); MEAN CELL VOLUME 93.8 fl (80-99); MEAN CORPUSCULAR HEMOGLOBIN 31.9 pg (26.0-30.0); PLATELET COUNT 101 Th/cmm (150-400); RED BLOOD COUNT 4.31 Mil/cmm (4.30-5.70); WHITE BLOOD COUNT 5.7 Th/cmm (4.8-10.8)
[2018-06-19 07:01] LABS: ALB/GLOB RATIO 1.4 (1.0-1.8); ALBUMIN 3.1 gm/dL (4.2-5.5); ALKALINE PHOSPHATASE 41 U/L (34-104); ANION GAP 10.8 (7.0-16.0); BILIRUBIN,TOTAL 0.5 mg/dL (0.3-1.0); BUN - UREA NITROGEN 11 mg/dL (7-25); CALCIUM SERUM 8.3 mg/dL (8.6-10.3); CARBON DIOXIDE 24.9 mEq/L (21.0-31.0); CHLORIDE 104 mEq/L (98-107); CREATININE - SERUM 0.7 mg/dL (0.7-1.3); GFR AFRICAN-AMERICAN > 60.0 ml/min (>90); GFR NON AFRICAN-AMERICAN > 60.0 ml/min; GLUCOSE 248 mg/dL (70-105); POTASSIUM SERUM 3.7 mEq/L (3.5-5.1); SGOT 9 U/L (13-39); SGPT/ALT 9 U/L (7-52); SODIUM SERUM 136 mEq/L (136-145); TOTAL PROTEIN,SERUM 5.4 gm/dL (6.0-8.3)
[2018-06-19 07:28] LABS: BAND NEUTROPHILE 1 % (0-10); BASOPHIL 0 % (0-3); EOSINOPHIL 0 % (0-5); LYMPHOCYTE 47 % (20-50); MONOCYTE 12 % (2-10); NEUTROPHILS 40 % (40-80)
[2018-06-19] MEDS ORDERED: Probiotic Screen MC PRN (08:30)
[2018-06-19] MEDS ORDERED: Lactobacillus Rhamnosus GG 15 Billion CFU CAP.SPRINK PO SCH (09:00)
[2018-06-19] MEDS ORDERED: Multivitamin Tab PO SCH (09:00)
[2018-06-19] MEDS: Insulin Detemir 100 units/mL 10mL Vial SUBQ SCH (09:05)
--- NOTE | 2018-06-19 11:28 | Progress Notes ---
DATE: 06/19/2018 PATIENT'S IDENTIFICATION: A 57-year-old male. SUBJECTIVE: The patient seen and examined. The patient has no new event. The patient denies any chest pain, shortness of breath, palpitation, or dizziness. The patient is tolerating p.o. well. The patient has no other new concerns. Glucoscan has been reviewed. OBJECTIVE: VITAL SIGNS: Temperature 96.9, pulse 70, respiratory rate 18, blood pressure 120/73. HEENT: No facial asymmetry. NECK: Supple. No JVD. HEART: Regular. LUNGS: Clear. ABDOMEN: Soft. EXTREMITIES: No edema. AVAILABLE DIAGNOSTIC DATA: Sodium 136, potassium 3.7, chloride 104, CO2 24.9, BUN and creatinine 11 and 0.7. CBC is within normal limit. Glucoscan is reviewed. CLINICAL IMPRESSION: 1. Diabetic ketoacidosis, resolved. 2. Diabetes mellitus. 3. Hypertension. 4. Hyperlipidemia. 5. Psychotic disorder. 6. Peripheral vascular disease. 7. History of hemorrhagic cerebrovascular accident. PLAN: 1. Discharge this patient to Geropsych Unit. 2. Discontinue IV antibiotic. 3. We will continue to follow this patient at Geropsych Unit while the patient is getting his GI psychiatric treatment. JOB# [id number]
[2018-06-19 21:59] LABS: A1C % 8.7 % (4.0-6.0)
== END 2018-06-19 15:30 | DRG 637 ==
LOC: ER 21:22 → ICU 06-18 → TELE 06-18 18:25
PROVIDERS: ADMIT Internal Medicine; ATTEND Internal Medicine
DX: E11.10 Type 2 diabetes mellitus with ketoacidosis without coma (principal); G93.41 Metabolic encephalopathy; E87.1 Hypo-osmolality and hyponatremia; I10 Essential (primary) hypertension; E03.9 Hypothyroidism, unspecified; E86.0 Dehydration; M19.90 Unspecified osteoarthritis, unspecified site; R56.9 Unspecified convulsions; F31.9 Bipolar disorder, unspecified; I95.9 Hypotension, unspecified; E86.1 Hypovolemia; E87.5 Hyperkalemia; E78.5 Hyperlipidemia, unspecified; F29 Unspecified psychosis not due to a substance or known physiological condition; E11.51 Type 2 diabetes mellitus with diabetic peripheral angiopathy without gangrene; K21.9 Gastro-esophageal reflux disease without esophagitis; Z82.49 Family history of ischemic heart disease and other diseases of the circulatory system; Z86.73 Personal history of transient ischemic attack (TIA), and cerebral infarction without residual deficits
CPT/HCPCS: 36415-UA; 36600-90; 71045-TC; 80048-TC; 80053-TC; 80061-TC; 81001-TC; 82010-TC; 82150-TC; 82550-TC; 82803-TC; 82948-90; 83036-90; 83605; 83690-TC; 83735-TC; 83880-TC; 84100-TC; 84443-TC; 84484-TC; 85007-TC; 85025-TC; 85379-TC; 85610-TC; 85730-TC; 86592-TC; 93005; 94760; 96375; J1815; J2543; J7030; Z7610

== ENCOUNTER 2018-06-19 17:21 | Inpatient (IN) | payer MEDICARE, MEDICAID ==
[2018-06-19] MEDS ORDERED: Magnesium Hydroxide (MOM) 30 mL UDC PO PRN ×2 (17:47→21:55)
[2018-06-19] MEDS ORDERED: INSULIN ASPART, RECOMBINANT 100 UNITS/ML SUBQ SCH (18:00)
[2018-06-19] MEDS: Atorvastatin Calcium 10 MG TAB PO SCH (21:08)
[2018-06-19] MEDS ORDERED: INSULIN ASPART, RECOMBINANT 100 UNITS/ML SUBQ ONE (21:54)
[2018-06-19 22:21] VITALS: BP 128/72
--- NOTE | 2018-06-20 02:24 | Progress Notes ---
DATE: 06/19/2018 Case was discussed with staff of the patient, reviewed records. The patient continues to be confused, unable to participate in a meaningful conversation or make safe plan for self-care, was transferred from ICU. He continues to have poor insight. Continues to be unpredictable and impulsive. He came from [place]. This is a SNF facility for people are very mentally ill, so I am not sure how we will do, but he was on an insulin drip in the ICU, so he may need to be observed longer before he goes back. Thank you very much for allowing me to participate in the care of this most interesting gentleman. The patient is a very poor historian. JOB# [id number]
[2018-06-20] MEDS: INSULIN ASPART SLIDING SCALE 100 UNITS/ML UNIT SUBQ SCH ×4 (06:38→21:36)
[2018-06-20] MEDS: Lactobacillus Rhamnosus GG 15 Billion CFU CAP.SPRINK PO SCH (08:40)
[2018-06-20] MEDS: Multivitamin Tab PO SCH (08:40)
[2018-06-20] MEDS: NITROGLYCERIN OINT 2% 1 INCH PACKET TP SCH ×4 (08:41→18:09)
[2018-06-20 08:51] LABS: EOSINOPHILE ABSOLUTE 0.1 Th/cmm (0.1-0.4); HEMATOCRIT 40.5 % (41.0-60); HEMOGLOBIN 13.6 gm/dL (12-16); LYMPHOCYTE ABSOLUTE 1.6 Th/cmm (1.5-3.0); MEAN CELL VOLUME 93.9 fl (80-99); MEAN CORPUSCULAR HEMOGLOBIN 31.6 pg (26.0-30.0); MEAN CORPUSCULAR HGB CONC 33.7 pg (28.0-36.0); MEAN PLATELET VOLUME 8.1 fl; MONOCYTE ABSOLUTE 1.1 Th/cmm (0.3-1.0); NEUTROPHILE ABSOLUTE 4.2 Th/cmm (1.8-8.0); PLATELET COUNT 105 Th/cmm (150-400); RED BLOOD COUNT 4.31 Mil/cmm (4.30-5.70); RED CELL DISTRIBUTION WIDTH 13.2 % (11.5-20.0)
[2018-06-20] MEDS ORDERED: Multivitamin Tab PO SCH (09:00)
[2018-06-20] MEDS ORDERED: Insulin Detemir 100 units/mL 10mL Vial SUBQ SCH ×3 (09:00→21:00)
[2018-06-20 09:48] LABS: NEUTROPHILS 60 % (40-80)
[2018-06-20 09:49] LABS: BAND NEUTROPHILE 2 % (0-10); EOSINOPHIL 1 % (0-5); LYMPHOCYTE 26 % (20-50); MONOCYTE 11 % (2-10); PLATELET ESTIMATE SLIGHT DECREASED (NORMAL)
--- NOTE | 2018-06-20 11:28 | History & Physical ---
ADMIT DATE: 06/20/2018 PATIENT IDENTIFICATION: A 57-year-old male. CHIEF COMPLAINT: "I am okay." HISTORY OF PRESENT ILLNESS: A 57-year-old male admitted at acute care facility for diabetic ketoacidosis, which was treated and subsequently transferred to Geropsych Unit for increasing agitation and aggressive behavior. PAST MEDICAL HISTORY: Remarkable for: 1. Diabetes. 2. Hypertension. 3. Hyperlipidemia. 4. Peripheral vascular disease. 5. History of hemorrhagic cerebrovascular accident. 6. Degenerative joint disease. 7. Psychotic disorder. MEDICATIONS AT THE TIME OF TRANSFER: Lipitor, Depakote, Colace, Pepcid, sliding scale insulin, Levemir, ____, probiotic, lisinopril, lorazepam, magnesium, metformin, multivitamin, Nitro-Bid, Seroquel, sodium chloride tablet and Ambien. ALLERGIES: The patient is not allergic to medications. SOCIAL HISTORY: The patient lives in a fci in [place]. No history of smoking cigarette, alcohol, or drug use. FAMILY MEDICAL HISTORY: Remarkable for diabetes. REVIEW OF SYSTEMS: The patient denies any headache, blurred vision, double vision, dysphagia, odynophagia, runny nose, stuffy nose, fever, chills, cough, chest pain, shortness of breath, palpitation, dizziness, nausea, vomiting, diarrhea, dysuria, hematuria, hematochezia, melena. No seizure or syncopal episode. PHYSICAL EXAMINATION: GENERAL: The patient is alert, awake, lying in the bed without any acute distress. VITAL SIGNS: Temperature 98, pulse is 90, respiratory rate 18, blood pressure 117/73. HEENT: No facial asymmetry, indentation of the scars noted. Otherwise, extraocular muscles intact. Pupils equal, round and reactive to light. Tongue was pink and coated. NECK: Supple. No JVD, no lymphadenopathy, thyromegaly or carotid bruit. HEART: Both heart sounds are regular. No S3, no S4, no murmur. CHEST AND LUNGS: Equal in expansion, no expiratory wheezing. ABDOMEN: Soft. No guarding, no rigidity. Bowel sounds present. No purpura. EXTREMITIES: No edema, peripheral pulses +1. No calf tenderness. NEUROLOGIC: Alert, awake, follows command. No facial asymmetry. Moving upper and lower extremity without any difficulty except a mild left lower extremity weakness noted. AVAILABLE DIAGNOSTIC DATA: Has been reviewed. CLINICAL IMPRESSION: 1. Diabetes mellitus, uncontrolled. 2. Hypertension. 3. Hyperlipidemia. 4. Degenerative joint disease. 5. Peripheral vascular disease. 6. History of hemorrhagic cerebrovascular accident. 7. High risk for fall. 8. Psychotic disorder exacerbation. PLAN: In the view of her poorly controlled diabetes, I will adjust the patient's Levemir along with metformin, add Januvia, and also use sliding scale insulin and adjust the dose of his insulin therapy. Continue to monitor blood sugar as well. Resume all his medication as patient was receiving at acute care facility. Psychotic evaluation and management deferred to psychiatrist. The patient is medically stable to participate in activity per the Geropsych Unit. The patient will be followed by myself during his stay in the hospital. JOB# [id number]
[2018-06-20] MEDS ORDERED: Diatrizoate Meglumine/Diatri 30 mL Sol PO ONE (12:04)
--- NOTE | 2018-06-20 13:43 | History & Physical ---
ADMIT DATE: 06/19/2018 IDENTIFYING INFORMATION: The patient is a 57-year-old male. CHIEF COMPLAINT: No answer. HISTORY OF PRESENT ILLNESS: The patient was transferred from [facility]. The patient with a history of bipolar disorder. The patient is a very poor historian. He believes he was 58 years of age. Unable to tell me the date, where he is, why he is here. He was feeding himself, though he was admitted with altered level of consciousness. He is in ICU. The patient unable to tell me the date or any history. The patient came from [place]. He reports sleeps well, eats well. PAST PSYCHIATRIC HISTORY: Bipolar disorder, unable to give much details. Denies prior substance abuse; however, is not a reliable historian. ALLERGIES: The patient has no known drug allergies. MEDICAL HISTORY: The patient with a history of diabetes mellitus, hypertension, hyperlipidemia, peripheral vascular disease, history of hemorrhagic cerebrovascular accident, degenerative joint disease. The patient has been on Depakote 750 mg twice a day and atorvastatin 40 mg daily. He is on famotidine 20 mg twice a day, insulin, lactulose, lisinopril 5 mg twice a day, metformin 1000 mg twice a day, multivitamin daily, nitroglycerin, Seroquel 200 mg at bedtime, sitagliptin or Januvia 100 mg daily. FAMILY AND SOCIAL HISTORY: The patient is single, never . 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 He used to drink heavily, but he is no longer drinking. He is a very poor historian. MENTAL STATUS EXAMINATION: The patient was appropriately dressed, not well groomed. He is feeding himself. Unable to give information. Unable to tell me his age or the date, where he is, why he is here. He denies any suicidal ideation or homicidal ideation. Denies feeling paranoid. His long-term memory is poor. Cannot remember his age, date of , recent memory, he can tell me the date, where he is, why he is here. His insight and judgment is impaired. IMPRESSION: AXIS I: Bipolar disorder by history of dementia, probably vascular dementia. MEDICAL DIAGNOSES: As per medical doctor. His assets, he is accepting treatment. Negative poor coping skills. INITIAL TREATMENT PLAN: The patient will be continued on medication. We will do group therapy, milieu therapy, and individual therapy. ESTIMATED LENGTH OF STAY: 3-7 days. DISCHARGE CRITERIA: Stable. He will be going to [place] after discharge outpatient treatment. [facility]# [id number]
[2018-06-20] MEDS ORDERED: Haloperidol Lactate 5 mg/mL 1mL Vial ONE (15:33)
[2018-06-20] MEDS ORDERED: Haloperidol Lactate 5 mg/mL 1mL Vial IM STA (15:33)
[2018-06-20] MEDS: Atorvastatin Calcium 10 MG TAB PO SCH (21:14)
[2018-06-20] MEDS: Insulin Detemir 100 units/mL 10mL Vial SUBQ SCH (21:37)
[2018-06-21] MEDS: NITROGLYCERIN OINT 2% 1 INCH PACKET TP SCH ×4 (06:15→17:08)
[2018-06-21] MEDS: INSULIN ASPART SLIDING SCALE 100 UNITS/ML UNIT SUBQ SCH ×4 (06:34→20:58)
[2018-06-21 06:43] LABS: % BASOPHILS 0.6 % (0.0-2.0); % EOSINOPHILS 2.5 % (0.0-5.0); % LYMPHOCYTES 34.1 % (20.0-50.0); % MONOCYTES 12.5 % (2.0-10.0); % NEUTROPHILS 50.3 % (40.0-80.0); EOSINOPHILE ABSOLUTE 0.2 Th/cmm (0.1-0.4); HEMATOCRIT 37.8 % (41.0-60); LYMPHOCYTE ABSOLUTE 2.1 Th/cmm (1.5-3.0); MEAN CORPUSCULAR HEMOGLOBIN 32.3 pg (26.0-30.0); MEAN CORPUSCULAR HGB CONC 34.4 pg (28.0-36.0); MEAN PLATELET VOLUME 7.8 fl; MONOCYTE ABSOLUTE 0.8 Th/cmm (0.3-1.0); PLATELET COUNT 92 Th/cmm (150-400); RED BLOOD COUNT 4.02 Mil/cmm (4.30-5.70); RED CELL DISTRIBUTION WIDTH 13.5 % (11.5-20.0); WHITE BLOOD COUNT 6.1 Th/cmm (4.8-10.8)
[2018-06-21 06:58] LABS: ALB/GLOB RATIO 1.2 (1.0-1.8); ALBUMIN 3.1 gm/dL (4.2-5.5); ALKALINE PHOSPHATASE 42 U/L (34-104); ANION GAP 8.7 (7.0-16.0); BILIRUBIN,TOTAL 0.4 mg/dL (0.3-1.0); BUN - UREA NITROGEN 10 mg/dL (7-25); CALCIUM SERUM 8.5 mg/dL (8.6-10.3); CHLORIDE 105 mEq/L (98-107); CREATININE - SERUM 0.5 mg/dL (0.7-1.3); GFR AFRICAN-AMERICAN > 60.0 ml/min (>90); GFR NON AFRICAN-AMERICAN > 60.0 ml/min; GLUCOSE 148 mg/dL (70-105); POTASSIUM SERUM 3.7 mEq/L (3.5-5.1); SGOT 26 U/L (13-39); SGPT/ALT 10 U/L (7-52); SODIUM SERUM 136 mEq/L (136-145); TOTAL PROTEIN,SERUM 5.6 gm/dL (6.0-8.3)
[2018-06-21] MEDS: Multivitamin Tab PO SCH (09:24)
[2018-06-21] MEDS: Lactobacillus Rhamnosus GG 15 Billion CFU CAP.SPRINK PO SCH (09:26)
--- NOTE | 2018-06-21 17:20 | Progress Notes ---
DATE: 06/21/2018 Case was discussed with staff of the patient, reviewed records. The patient is able to feed himself. The patient does not participate much. Continues to be unable to make safe plan for self-care, unpredictable and impulsive. He is confused, probably vascular dementia. He is compliant with the medication with no side effects, no sedation, no nausea and no extrapyramidal symptoms. We will continue the patient in group therapy, milieu therapy, and adjust medications as needed. JOB# [id number]
--- NOTE | 2018-06-21 19:03 | Progress Notes ---
DATE: 06/21/2018 SUBJECTIVE: The patient seen and examined. The patient is lying in the bed. Blood sugars this morning is reported on chemistry panel 148. The patient remained afebrile. The patient's hemoglobin is remaining stable. No new event reported by nursing staff. PHYSICAL EXAMINATION: VITAL SIGNS: Temperature 98, pulse is 70, respiratory rate 18, blood pressure 115/72. HEENT: Bilateral indentation of the skull noted. NECK: Supple, no JVD. HEART: Regular. CHEST: Lung equal in expansion, no expiratory wheezing. ABDOMEN: Soft. EXTREMITIES: No edema. AVAILABLE DIAGNOSTIC DATA: White count of 6.1, hemoglobin 13, platelet count of 92, BUN and creatinine is 10 and 0.5, glucose 148. CLINICAL IMPRESSION: 1. Thrombocytopenia. 2. Diabetes mellitus with elevated blood sugar. 3. Hypertension. 4. Cerebrovascular accident. 5. Degenerative joint disease. 6. Psychotic disorder. 7. High risk for fall. PLAN: The patient is currently on the diabetes management with metformin, Januvia, along with basal insulin and sliding scale NovoLog insulin. We will continue for now. Continue Lipitor. Thrombocytopenia medina, we will recheck platelet count again obliterating, if platelet count is declining, it could be most likely from medication, which needs to be addressed with the Depakote. We will also check the DIC panel as well. Care plan has been reviewed and discussed as well. JOB# [id number]
[2018-06-21] MEDS: Atorvastatin Calcium 10 MG TAB PO SCH (20:54)
[2018-06-21] MEDS: Insulin Detemir 100 units/mL 10mL Vial SUBQ SCH (20:59)
[2018-06-22] MEDS: NITROGLYCERIN OINT 2% 1 INCH PACKET TP SCH ×4 (06:44→17:00)
[2018-06-22] MEDS: INSULIN ASPART SLIDING SCALE 100 UNITS/ML UNIT SUBQ SCH ×4 (06:56→21:00)
[2018-06-22] MEDS: Lactobacillus Rhamnosus GG 15 Billion CFU CAP.SPRINK PO SCH (09:15)
[2018-06-22] MEDS: Multivitamin Tab PO SCH (09:16)
--- NOTE | 2018-06-22 10:36 | Progress Notes ---
DATE: 06/22/2018 PSYCHIATRIC PROGRESS NOTE Chart reviewed and the patient interviewed. Also, discussed the patient's condition with the staff and reviewed records and labs. The patient is still anxious and he still seems to be in a depressed mood. The patient also seems to be confused. He also seems to be paranoid and suspicious and interacting minimally with others. He also is unable to carry on coherent conversation when I was trying to talk to him. Otherwise, the patient is compliant with taking his medications and no side effects of Depakote or Seroquel. ASSESSMENT: The patient is still confused and is still suspicious and paranoid. TREATMENT PLAN: We will continue to monitor his behavior and his condition closely. Also, we will get Depakote blood level. Also, we will monitor his behavior closely. The patient in general seems to be calmer and less agitated and less irritable. ESTIMATED LENGTH OF STAY: 5-7 days. Also discussed with forensic social worker possibilities of him returning to [place] after finishing his treatment. [facility]# [id number]
[2018-06-22 10:52] LABS: % BASOPHILS 0.4 % (0.0-2.0); % EOSINOPHILS 3.6 % (0.0-5.0); % LYMPHOCYTES 38.1 % (20.0-50.0); % MONOCYTES 13.4 % (2.0-10.0); % NEUTROPHILS 44.5 % (40.0-80.0); EOSINOPHILE ABSOLUTE 0.2 Th/cmm (0.1-0.4); HEMATOCRIT 37.6 % (41.0-60); HEMOGLOBIN 12.8 gm/dL (12-16); LYMPHOCYTE ABSOLUTE 1.8 Th/cmm (1.5-3.0); MEAN CELL VOLUME 93.5 fl (80-99); MEAN CORPUSCULAR HEMOGLOBIN 31.8 pg (26.0-30.0); MEAN PLATELET VOLUME 8.1 fl; MONOCYTE ABSOLUTE 0.6 Th/cmm (0.3-1.0); PLATELET COUNT 106 Th/cmm (150-400); RED BLOOD COUNT 4.02 Mil/cmm (4.30-5.70); RED CELL DISTRIBUTION WIDTH 13.3 % (11.5-20.0); WHITE BLOOD COUNT 4.6 Th/cmm (4.8-10.8)
[2018-06-22 12:12] LABS: INR 0.91 (0.5-1.4); PROTHROMBIN TIME (TEST) 9.5 SECONDS (9.5-11.5)
--- NOTE | 2018-06-22 14:47 | Consultation ---
DATE OF CONSULTATION: 06/22/2018 UROLOGY CONSULTATION NOTE REASON FOR CONSULTATION: Seen for gross hematuria. HISTORY OF PRESENT ILLNESS: The patient is 57 years old, resident of the psychiatric unit with a Martinez catheter. Blood was noted in the catheter, for which consult was requested. Subsequently, irrigation of the catheter resolved the bleeding. The patient is unable to provide urologic history and the nurses are not available due to lunch break and history about the Martinez is not known. He probably had retention, requiring this catheter and is presently draining clear urine. PAST MEDICAL HISTORY: Positive for diabetes, hypertension and hyperlipidemia. The patient has a history of peripheral vascular disease as well. Apparently, had a stroke also. He has history of degenerative joint disease. He also has a psychotic disorder, most likely bipolar disorder. MEDICATIONS: At the time of transfer to the unit were Lipitor, Depakote, Pepcid, insulin, lisinopril, metformin, Seroquel, and Ambien. ALLERGIES: None. SOCIAL HISTORY: Resident of a [facility] in [place], currently in the Geriatric Psych Unit due to uncontrolled diabetes and ketoacidosis that is now improving. He was transferred from the med-surg unit down to this psychiatric [place]. No known history of tobacco, alcohol or drug use. REVIEW OF SYSTEMS: Unavailable from the patient, but no documented seizures, chest pain. No coughing, vomiting or diarrhea. Martinez catheter is draining well. He is ambulatory. PHYSICAL EXAMINATION: GENERAL: He is awake, alert and oriented. VITAL SIGNS: Temperature 97.3, heart rate 89, blood pressure 120/85. No fever recorded for last several days. HEAD AND NECK: Normocephalic. Trachea central. Pupils equal and reactive. No jaundice. Thyroid and lymph nodes not palpable. Carotid bruit absent. CHEST: Symmetrical. LUNGS: Clear. No rales or rhonchi. HEART: Sounds normal in sinus rhythm, no murmur. ABDOMEN: Soft, nontender, no organomegaly, mass, or hernia. GENITALIA: Normal male, testes normal. No scrotal masses. Penis uncircumcised. Martinez catheter draining clear yellow urine. RECTAL: Sphincter tone, normal. Prostate is small, 15 grams or so, smooth, benign and nontender. No nodules. EXTREMITIES: No edema or lymphadenopathy. NEUROLOGIC: Nonfocal. Moves all 4 limbs. LABORATORY DATA: Glucose is fingerstick 199, 333, 253 and 281. Creatinine yesterday was 0.5 with a BUN of 10. Electrolytes were normal. This morning's white count 4.6 and hemoglobin 12.8, down from 13.6 two days ago; platelets are normal. PT, PTT are normal. IMPRESSION AND PLAN: 1. Chronic Martinez catheter probably for retention, which is probably secondary to neurogenic bladder from the stroke and diabetes. Recommend catheter care with irrigation every 2 days with 200 mL of normal saline for prevention of infection and bleeding and on a p.r.n. basis if bleeding occurs or blood is seen in the catheter, the same irrigation has to be carried out. Over the skilled nursing, the patient should have a cystoscopy if he did not already have it and further treatment plan according to the findings of cystoscopy. 2. Diabetes. 3. Hypertension. 4. Hyperlipidemia. 5. History of stroke and peripheral vascular disease. 6. Psychotic disorder, bipolar. The antipsychotic drugs can also have an anticholinergic effect on the bladder and cause retention. [facility]# [id number]
--- NOTE | 2018-06-22 20:34 | Progress Notes ---
DATE: 06/22/2018 DATE OF SERVICE: 06/22/2018 IDENTIFICATION: A 57-year-old male. SUBJECTIVE: The patient seen and examined. The patient is lying in the bed. No new event. The patient noted to have thrombocytopenia. The patient currently asymptomatic. No active bleeding. The patient is eating fairly well. Depakote level is reported normal. PHYSICAL EXAMINATION: VITAL SIGNS: Temperature 97.3, pulse is 87, respiratory rate 18, blood pressure 110/77. Glucoscan is reviewed. HEENT: No facial asymmetry and indentation of the scalp noted. NECK: Supple, no JVD. HEART: Regular. CHEST AND LUNGS: Equal in expansion, no expiratory wheezing. ABDOMEN: Soft. No guarding, no rigidity. Bowel sounds are present. No palpable mass. EXTREMITIES: No edema. CLINICAL IMPRESSION: 1. Thrombocytopenia. 2. Diabetes mellitus with elevated blood sugar. 3. Hypertension. 4. Cerebrovascular accident. 5. Psychotic disorder. 6. Degenerative joint disease. PLAN: DIC and CBC will be checked again. If worsening thrombocytopenia, discontinue famotidine for now. Adjust the dose of insulin. Continue metformin and Januvia as well. Fall precautions, nutritional support, general nursing care, psych medication, and psych followup. We will continue to follow this patient during the stay in the hospital. JOB# [id number]
[2018-06-22] MEDS: Insulin Detemir 100 units/mL 10mL Vial SUBQ SCH (21:00)
[2018-06-23] MEDS: NITROGLYCERIN OINT 2% 1 INCH PACKET TP SCH ×4 (00:16→17:19)
[2018-06-23] MEDS: INSULIN ASPART SLIDING SCALE 100 UNITS/ML UNIT SUBQ SCH ×4 (06:34→20:35)
[2018-06-23] MEDS: Lactobacillus Rhamnosus GG 15 Billion CFU CAP.SPRINK PO SCH (08:14)
[2018-06-23] MEDS: Multivitamin Tab PO SCH (08:17)
--- NOTE | 2018-06-23 18:23 | Progress Notes ---
DATE: 06/23/2018 SUBJECTIVE: The patient seen and examined in Geropsych Unit. The patient has been seen by urologist for hematuria and recommended at this time that the patient should have Martinez catheter care and continuation of the psychiatric and underlying medical management. The patient was noted to have thrombocytopenia, which has improved from 92-106. The patient is currently asymptomatic and no evidence of active bleeding noted. Nurses are concerned about his nitro paste. The patient has been on this medication in the form of nitrate p.o. form and [facility]. PHYSICAL EXAMINATION: VITAL SIGNS: Temperature is 97.8, pulse 85, respiratory rate 18, and blood pressure 123/85. HEENT: No facial asymmetry, with the bilateral indentation of the scalp noted. NECK: Supple, no JVD. HEART: Regular. CHEST: Lung equal in expansion, no expiratory wheezing. ABDOMEN: Soft, no guarding or rigidity. Bowel sounds are present. No palpable mass. EXTREMITIES: No edema. ASSESSMENT: 1. Diabetes mellitus with elevated blood sugar. 2. Thrombocytopenia, improving. 3. Coronary artery disease. 4. Diabetes. 5. Hypertension. 6. Degenerative joint disease. 7. Peripheral vascular disease. 8. Gross hematuria, resolved. 9. Psychotic disorder. PLAN: Recommended at this time, the patient is to continue basal insulin with increasing dose to 46 units along with metformin and Januvia. The patient will have discontinuation of Nitro-Bid and put him on Imdur 30 mg daily. Continue to monitor blood pressure as well as blood sugar. Psychotic evaluation and management deferred to psychiatrist. The patient will be followed by us during the stay in the hospital. JOB# [id number]
[2018-06-23] MEDS: Insulin Detemir 100 units/mL 10mL Vial SUBQ SCH (20:37)
[2018-06-23] MEDS ORDERED: INSULIN ASPART, RECOMBINANT 100 UNITS/ML SUBQ ONE (22:00)
--- NOTE | 2018-06-23 22:51 | Progress Notes ---
DATE: 06/23/2018 PSYCHIATRIC PROGRESS NOTE SUBJECTIVE: Chart reviewed and the patient interviewed. Also discussed the patient's condition with the staff and reviewed records and labs. The patient's affect is brighter. The patient is still confused and still has periods of agitation, but he is trying to interact more and is trying to carry on conversation more. The patient also is interacting with less anger and less irritability. He is also compliant with taking his medications with no side effects of medications. ASSESSMENT: The patient is still psychotic, but less irritable and less agitated. TREATMENT PLAN: Continue Depakote 750 mg b.i.d. and Seroquel 200 mg at this time. Also, continue to monitor behavior and condition closely and continue to follow up. [facility]# [id number]
[2018-06-24] MEDS: NITROGLYCERIN OINT 2% 1 INCH PACKET TP SCH ×4 (00:05→17:13)
[2018-06-24] MEDS: INSULIN ASPART SLIDING SCALE 100 UNITS/ML UNIT SUBQ SCH ×4 (08:32→21:21)
[2018-06-24] MEDS: Lactobacillus Rhamnosus GG 15 Billion CFU CAP.SPRINK PO SCH (08:34)
[2018-06-24] MEDS: Multivitamin Tab PO SCH (08:35)
[2018-06-24] MEDS ORDERED: INSULIN ASPART, RECOMBINANT 100 UNITS/ML SUBQ ONE (12:15)
[2018-06-24 12:21] LABS: CHOLESTEROL 99 mg/dL (<200); HDL -HIGH DENSITY LIPOPROTEIN 31 mg/dL (23-92); TRIGLYCERIDES 135 mg/dL (<150)
[2018-06-24] MEDS: Insulin Detemir 100 units/mL 10mL Vial SUBQ SCH (21:22)
--- NOTE | 2018-06-24 22:36 | Progress Notes ---
DATE: 06/24/2018 DATE OF SERVICE: 06/24/2018 IDENTIFICATION: A 57-year-old male. SUBJECTIVE: The patient seen and examined. The patient is lying in the bed. The patient remained hemodynamically stable. Glucoscan is an acceptable range. Last night, blood sugar was elevated, this morning is 148. PHYSICAL EXAMINATION: VITAL SIGNS: Temperature 97.6, pulse 92, respiratory rate 18, blood pressure 114/83. HEENT: No facial asymmetry. NECK: Supple, no JVD. HEART: Regular. CHEST: Lung equal in expansion, no expiratory wheezing. ABDOMEN: Soft. No guarding, no rigidity. Bowel sounds are present. No palpable mass. EXTREMITIES: No edema. Glucoscan is reviewed. CLINICAL IMPRESSION: 1. Diabetes mellitus with acceptable blood sugar. 2. Hypertension. 3. Hyperlipidemia. 4. History of hemorrhagic cerebrovascular accident. 5. Psychotic disorder. 6. Degenerative joint disease. 7. Hyperlipidemia. PLAN: 1. Diabetes management. 2. Glucoscan a.c. and at bedtime. 3. Antihypertensive medicine. 4. Statin. 5. Psych medication. 6. Psych followup. 7. General nursing care. 8. Fall precaution. 9. Nutritional support. 10. Care plan reviewed and discussed with staff. JOB# [id number]
[2018-06-25] MEDS: NITROGLYCERIN OINT 2% 1 INCH PACKET TP SCH ×4 (00:10→17:04)
--- NOTE | 2018-06-25 08:08 | Progress Notes ---
DATE: 06/24/2018 DATE: 06/24/2018 PSYCHIATRIC PROGRESS NOTE SUBJECTIVE: Chart reviewed and the patient interviewed. Also discussed the patient's condition with the staff and reviewed records and labs. The patient is still guarded and is still withdrawn. The patient also is still in a depressed mood. The patient also seems to be confused and he does know where he lived prior to his admission. He also seems to be actively and he still seems to be talking to self at times. Otherwise, the patient is compliant with taking his medications with no side effects. ASSESSMENT: The patient is still psychotic and agitated. TREATMENT PLAN: Continue to monitor his behavior and condition closely. Also, continue to work on his psychosis and agitation and adjusting psychotropic medications. JOB# [id number]
[2018-06-25 08:19] LABS: HEMATOCRIT 37.2 % (41.0-60); HEMOGLOBIN 13.1 gm/dL (12-16); MEAN CELL VOLUME 91.2 fl (80-99); MEAN CORPUSCULAR HEMOGLOBIN 32.2 pg (26.0-30.0); MEAN CORPUSCULAR HGB CONC 35.3 pg (28.0-36.0); MEAN PLATELET VOLUME 7.9 fl; PLATELET COUNT 146 Th/cmm (150-400); RED BLOOD COUNT 4.08 Mil/cmm (4.30-5.70); RED CELL DISTRIBUTION WIDTH 13.2 % (11.5-20.0); WHITE BLOOD COUNT 6.7 Th/cmm (4.8-10.8)
[2018-06-25 08:34] LABS: ALB/GLOB RATIO 1.2 (1.0-1.8); ALBUMIN 3.1 gm/dL (4.2-5.5); ALKALINE PHOSPHATASE 47 U/L (34-104); ANION GAP 10.3 (7.0-16.0); BILIRUBIN,TOTAL 0.3 mg/dL (0.3-1.0); BUN - UREA NITROGEN 17 mg/dL (7-25); CALCIUM SERUM 8.7 mg/dL (8.6-10.3); CARBON DIOXIDE 23.7 mEq/L (21.0-31.0); CHLORIDE 103 mEq/L (98-107); CHOLESTEROL 94 mg/dL (<200); CREATININE - SERUM 0.7 mg/dL (0.7-1.3); GFR AFRICAN-AMERICAN > 60.0 ml/min (>90); GFR NON AFRICAN-AMERICAN > 60.0 ml/min; HDL -HIGH DENSITY LIPOPROTEIN 27 mg/dL (23-92); SGOT 14 U/L (13-39); SGPT/ALT 13 U/L (7-52); SODIUM SERUM 133 mEq/L (136-145); TOTAL PROTEIN,SERUM 5.6 gm/dL (6.0-8.3); TRIGLYCERIDES 168 mg/dL (<150)
[2018-06-25 08:47] LABS: LYMPHOCYTE 48 % (20-50); MONOCYTE 9 % (2-10); NEUTROPHILS 34 % (40-80)
[2018-06-25 08:48] LABS: BASOPHIL 2 % (0-3); EOSINOPHIL 7 % (0-5); PLATELET ESTIMATE ADEQUATE (NORMAL)
[2018-06-25 08:49] LABS: GLUCOSE 250 mg/dL (70-105)
[2018-06-25] MEDS: Multivitamin Tab PO SCH (09:05)
[2018-06-25] MEDS: Lactobacillus Rhamnosus GG 15 Billion CFU CAP.SPRINK PO SCH (09:05)
--- NOTE | 2018-06-25 10:51 | Progress Notes ---
DATE: 06/25/2018 SUBJECTIVE: The patient seen and examined. The patient is lying in the bed. The patient has no new complaint. OBJECTIVE: On exam, VITAL SIGNS: Temperature 98.6, pulse is 84, respiratory rate 18, blood pressure 103/67. Glucoscan has been reviewed. HEENT: No facial asymmetry and dentition upper and lower chin. In addition, the scalped skull noted. NECK: Supple. No JVD. HEART: Regular, no murmur. CHEST AND LUNG: Equal in expansion, no expiratory wheezing. ABDOMEN: Soft. No guarding, no rigidity. Bowel sounds present. No palpable mass. EXTREMITIES: No edema. AVAILABLE DIAGNOSTIC DATA: White count of 6.7, hemoglobin 13.1, platelet count of 146. BUN and creatinine are normal. Glucoscan is reviewed. CLINICAL IMPRESSION: 1. Diabetes mellitus. 2. Hypertension. 3. Hyperlipidemia. 4. History of hemorrhagic cerebrovascular accident. 5. High risk for fall. 6. Degenerative joint disease. 7. Psychotic disorder. PLAN: 1. Continue to monitor blood sugar. 2. Adjust the dose of insulin therapy. 3. Antihypertensive medicine. 4. Statin. 5. Psych medication. 6. Fall precautions. 7. Care plan reviewed and discussed with staff. JOB# [id number]
[2018-06-25] MEDS: INSULIN ASPART SLIDING SCALE 100 UNITS/ML UNIT SUBQ SCH ×3 (11:26→20:45)
--- NOTE | 2018-06-25 15:38 | Progress Notes ---
DATE: SUBJECTIVE: Chart reviewed and the patient interviewed. Also discussed the patient's condition with the staff and reviewed records and labs. The patient is still depressed and still confused. The patient also is withdrawn and interacting minimally with others. Also, is anxious and he is still unable to answer questions currently because of his confusion and because of his depression. Otherwise, the patient continues to comply with taking his medications with no side effects of medications. ASSESSMENT: The patient is still depressed but seems to be less agitated. TREATMENT PLAN: Continue to monitor his behavior and his condition closely. Also, continue adjusting psychotropic medications and working on his agitation and behavioral modifications and we will continue Seroquel same dose. JOB# [id number]
[2018-06-25] MEDS: Insulin Detemir 100 units/mL 10mL Vial SUBQ SCH (20:50)
[2018-06-26] MEDS: INSULIN ASPART SLIDING SCALE 100 UNITS/ML UNIT SUBQ SCH ×2 (06:52→11:10)
[2018-06-26] MEDS: Lactobacillus Rhamnosus GG 15 Billion CFU CAP.SPRINK PO SCH (08:39)
[2018-06-26] MEDS: Multivitamin Tab PO SCH (08:41)
[2018-06-26] MEDS: NITROGLYCERIN OINT 2% 1 INCH PACKET TP SCH (11:10)
--- NOTE | 2018-06-26 17:06 | Discharge Summary ---
DATE OF DISCHARGE: 06/26/2018 AGE: 57. SEX: Male. PHYSICIAN: Dr. Quezada. FINAL DIAGNOSIS/PRIMARY DIAGNOSIS: Chronic paranoid schizophrenia with acute exacerbation. REASON FOR HOSPITALIZATION: The patient was admitted to the hospital because of increased agitation, irritability, and aggressive behavior [facility] and also the patient was in a depressed mood. HOSPITAL COURSE: The patient continued to be anxious and in a depressed mood. The patient also has had episodes of irritability and agitation. The patient was started on Depakote 750 mg twice a day. The patient also was given Seroquel in a dose of 12.5 mg twice a day and 200 mg at bedtime. Gradually, the patient's affect was brighter. The patient was less agitated and less irritable. The patient was discharged back to [facility]. Physical examination of the patient showed no major medical problems while in the hospital. AFTER DISCHARGE PLANS: The patient discharged from the hospital and returned to [place] with plan for followup there. EXPECTED OUTCOME AFTER DISCHARGE: Fair if the patient continues with his outpatient treatment and follow up with discharge plans. [facility]# [id number]
--- NOTE | 2018-06-27 00:48 | Progress Notes ---
DATE: 06/26/2018 SUBJECTIVE: The patient seen and examined. The patient is going to be discharged today to [facility]. The patient currently has no new complaint. PHYSICAL EXAMINATION: VITAL SIGNS: See nurse's note. HEENT: Indentation of the scalp noted. NECK: Supple, no JVD. HEART: Regular. CHEST: Lung equal in expansion, no expiratory wheezing. ABDOMEN: Soft. EXTREMITIES: No edema. CLINICAL IMPRESSION: 1. Diabetes mellitus. 2. Hypertension. 3. Hyperlipidemia. 4. History of hemorrhagic cerebrovascular accident. 5. Psychotic disorder. PLAN: The patient's [facility] as far as psychiatric standpoint is stable. We will follow this patient in at [facility]. Continue current treatment plan as prescribed with the currently prescribed medications. JOB# [id number]
== END 2018-06-26 14:50 | DRG 885 ==
LOC: GERO 17:21
PROVIDERS: ADMIT Psychiatry & Neurology Psychiatry; ATTEND Psychiatry & Neurology Psychiatry
DX: F20.0 Paranoid schizophrenia (principal); E11.65 Type 2 diabetes mellitus with hyperglycemia; F03.91 Unspecified dementia, unspecified severity, with behavioral disturbance; F29 Unspecified psychosis not due to a substance or known physiological condition; I10 Essential (primary) hypertension; E78.5 Hyperlipidemia, unspecified; M19.90 Unspecified osteoarthritis, unspecified site; E11.51 Type 2 diabetes mellitus with diabetic peripheral angiopathy without gangrene; D69.6 Thrombocytopenia, unspecified; N31.9 Neuromuscular dysfunction of bladder, unspecified; I25.10 Atherosclerotic heart disease of native coronary artery without angina pectoris; R31.0 Gross hematuria; Z91.81 History of falling; Z86.73 Personal history of transient ischemic attack (TIA), and cerebral infarction without residual deficits; Z79.899 Other long term (current) drug therapy
CPT/HCPCS: 36415-UA; 80053-TC; 80061-TC; 80164-TC; 82947-TC; 82948-90; 85007-TC; 85025-TC; 85049-TC; 85379-TC; 85384-TC; 85610-TC; 85730-TC; G0410; J1200; J1630; J1815; J2060; X7704; Z7610

== ENCOUNTER 2018-08-31 16:07 | Inpatient (IN) | payer MEDICARE, MEDICAID ==
[2018-08-31 16:33] LABS: EOSINOPHILE ABSOLUTE 0.1 Th/cmm (0.1-0.4); LYMPHOCYTE ABSOLUTE 2.3 Th/cmm (1.5-3.0); MEAN PLATELET VOLUME 7.3 fl; WHITE BLOOD COUNT 5.6 Th/cmm (4.8-10.8)
[2018-08-31 16:35] LABS: % BASOPHILS 0.7 % (0.0-2.0); % EOSINOPHILS 1.2 % (0.0-5.0); % NEUTROPHILS 43.1 % (40.0-80.0); HEMATOCRIT 47.4 % (41.0-60); HEMOGLOBIN 15.4 gm/dL (12-16); MEAN CELL VOLUME 93.9 fl (80-99); MEAN CORPUSCULAR HEMOGLOBIN 30.5 pg (26.0-30.0); MEAN CORPUSCULAR HGB CONC 32.5 pg (28.0-36.0); MONOCYTE ABSOLUTE 0.8 Th/cmm (0.3-1.0); NEUTROPHILE ABSOLUTE 2.4 Th/cmm (1.8-8.0); PLATELET COUNT 135 Th/cmm (150-400); RED BLOOD COUNT 5.05 Mil/cmm (4.30-5.70); RED CELL DISTRIBUTION WIDTH 13.4 % (11.5-20.0)
[2018-08-31 16:54] LABS: ALB/GLOB RATIO 1.5 (1.0-1.8); ALBUMIN 4.2 gm/dL (4.2-5.5); ALKALINE PHOSPHATASE 67 U/L (34-104); ANION GAP 13.6 (7.0-16.0); BILIRUBIN,TOTAL 0.5 mg/dL (0.3-1.0); BUN - UREA NITROGEN 17 mg/dL (7-25); CALCIUM SERUM 8.9 mg/dL (8.6-10.3); CARBON DIOXIDE 24.6 mEq/L (21.0-31.0); CHLORIDE 94 mEq/L (98-107); CREATININE - SERUM 0.9 mg/dL (0.7-1.3); GFR AFRICAN-AMERICAN > 60.0 ml/min (>90); GFR NON AFRICAN-AMERICAN > 60.0 ml/min; GLUCOSE 347 mg/dL (70-105); MAGNESIUM 1.9 mg/dL (1.9-2.7); PHOSPHOROUS 3.2 mg/dL (2.5-5.0); POTASSIUM SERUM 4.2 mEq/L (3.5-5.1); SGOT 13 U/L (13-39); SGPT/ALT 14 U/L (7-52); SODIUM SERUM 128 mEq/L (136-145); TOTAL PROTEIN,SERUM 7.1 gm/dL (6.0-8.3)
[2018-08-31] MEDS ORDERED: Nystatin Cream 100,000 u/gm Cream 15 gm TP ONE ×2 (18:41→19:48)
[2018-08-31 18:51] LABS: URINE BILIRUBIN NEGATIVE (NEGATIVE); URINE BLOOD LARGE (NEGATIVE); URINE GLUCOSE (UA) >=1000 mg/dL (NEGATIVE); URINE KETONE 15 mg/dL (NEGATIVE); URINE LEUKOCYTE ESTERASE NEGATIVE (NEGATIVE); URINE MICROSCOPIC INDICATED? YES; URINE NITRATE POSITIVE (NEGATIVE); URINE PROTEIN NEGATIVE (NEGATIVE); URINE SOURCE CLEAN C
[2018-08-31] MEDS ORDERED: 0.9% NS w/40 mEq KCL 1,000 ML IV ONE ×2 (18:57→19:15)
[2018-08-31] MEDS ORDERED: INSULIN HUMAN REGULAR 100 UNITS/ML UNIT IVP ONE (18:58)
[2018-08-31 19:00] LABS: URINE CLARITY HAZY (CLEAR); URINE COLOR YELLOW
--- NOTE | 2018-08-31 19:02 | ED Physician Chart ---
ED Chief Complaint/HPI - Patient Information Date Seen:: 08/31/18 Time Seen:: 16:30 Chief Complaint:: increased agitation History of Present Illness:: increased agitation in a diabetic patient. Allergies:: Allergies Allergy/AdvReac Type Severity Reaction Status Date / Time No Known Allergies Allergy Verified 05/07/18 17:55 Vitals:: Vital Signs - 8 hr 08/31/18 16:30 Temp 98.1 F HR 111 RR 17 BP 112/88 O2 Sat % 97 Historian:: EMS, Medical Records Review:: Nurse's Note Reviewed, Transfer documents Reviewed ED Review of Systems - Review of Systems General/Constitutional: No fever, No chills, No weight loss, No weakness, No diaphoresis, No edema, No loss of appetite Skin: No skin lesions, No rash, No bruising Head: No headache, No light-headedness Eyes: No loss of vision, No pain, No diplopia ENT: No earache, No nasal drainage, No sore throat, No tinnitus Neck: No neck pain, No swelling, No thyromegaly, No stiffness, No mass noted Cardio Vascular: No chest pain, No palpitations, No PND, No orthopnea, No edema Pulmonary: No SOB, No cough, No sputum, No wheezing GI: No nausea, No vomiting, No diarrhea, No pain, No melena, No hematochezia, No constipation, No hematemesis G/U: No dysuria, No frequency, No hematuria Musculoskeletal: No bone or joint pain, No back pain, No muscle pain Endocrine: No polyuria, No polydipsia Psychiatric: Prior psych history, Other (increased agitation) Hematopoietic: No bruising, No lymphadenopathy Allergic/Immuno: No urticaria, No angioedema Neurological: No syncope, No focal symptoms, No weakness, No paresthesia, No headache, No seizure, No dizziness, No confusion, No vertigo ED Past Medical History - Past Medical History Obtainable: Yes Past Medical History: HTN, DM, PUD/GERD, Thyroid disorder, Other ( thrombocytopenia) Family Medical History - Family Member Mother History Unknown: Yes Ethnicity: Living Status: Unknown Hx Family Diabetes: Yes ED Physical Exam - Physical Examination General/Constitutional: Awake, Well-developed, well-nourished, Non-toxic appearing Head: Atraumatic Eyes: Lids, conjuctiva normal, PERRL, EOMI Other Skin comments:: jamilah (very bad case of) to the penis after retraction of the foreskin. ENMT: External ears, nose nl Neck: Nontender, No nuchal rigidity Respiratory: Nl effort/Exclusion, Clear to Auscultation, No Wheeze/Rhonchi/Rales Cardio Vascular: RRR, No murmur, gallop, rubs, NL S1 S2 GI: No tenderness/rebounding/guarding, No organomegaly, No hernia, Normal BS's, Nondistended : No CVA tenderness Other comments:: jamilah (very bad case of) to the penis after retraction of the foreskin Extremities: No tenderness or effusion, Full ROM Neuro/Psych: Mood normal Misc: Normal back ED Labs/Radiology/EKG Results - Lab Results Results: Laboratory Tests 08/31/18 08/31/18 08/31/18 16:30 16:30 16:30 WBC 5.6 RBC 5.05 Hgb 15.4 Hct 47.4 MCV 93.9 MCH 30.5 H MCHC Differential 32.5 RDW 13.4 Plt Count 135 L MPV 7.3 Neutrophils % 43.1 Lymphocytes % 41.0 Monocytes % 14.0 H Eosinophils % 1.2 Basophils % 0.7 Sodium 128 L Potassium 4.2 Chloride 94 L Carbon Dioxide 24.6 Anion Gap 13.6 BUN 17 Creatinine 0.9 Est GFR ( Amer) > 60.0 Est GFR (Non-Af Amer) > 60.0 BUN/Creatinine Ratio 18.9 Glucose 347 H Calcium 8.9 Phosphorus 3.2 Magnesium 1.9 Total Bilirubin 0.5 AST 13 ALT 14 Alkaline Phosphatase 67 Total Protein 7.1 Albumin 4.2 Globulin 2.9 Albumin/Globulin Ratio 1.5 Urine Color Urine Clarity Urine pH Ur Specific [place] Urine Protein Urine Glucose (UA) Urine Ketones Urine Blood Urine Nitrate Urine Bilirubin Urine Urobilinogen Ur Leukocyte Esterase Valproic Acid 98.6 08/31/18 16:38 WBC RBC Hgb Hct MCV MCH MCHC Differential RDW Plt Count MPV Neutrophils % Lymphocytes % Monocytes % Eosinophils % Basophils % Sodium Potassium Chloride Carbon Dioxide Anion Gap BUN Creatinine Est GFR ( Amer) Est GFR (Non-Af Amer) BUN/Creatinine Ratio Glucose Calcium Phosphorus Magnesium Total Bilirubin AST ALT Alkaline Phosphatase Total Protein Albumin Globulin Albumin/Globulin Ratio Urine Color YELLOW Urine Clarity HAZY Urine pH 6.0 Ur Specific [place] 1.010 Urine Protein NEGATIVE Urine Glucose (UA) >=1000 H Urine Ketones 15 H Urine Blood LARGE H Urine Nitrate POSITIVE H Urine Bilirubin NEGATIVE Urine Urobilinogen 1.0 Ur Leukocyte Esterase NEGATIVE Valproic Acid ED Assessment - Assessment General Assessment: sign out given to Dr. Hayes to check blood sugar. MEDICAL CLEARANCE PER DR. HAYES AFTER HE RECHECKS THE BLOOD SUGAR. PATIENT, IF MEDICALLY CLEARED, SHOULD CONTINUE TO BE TREATED FOR HIS URINARY TRACT INFECTION ON GEROPSYCH. HE SHOULD ALSO BE TREATED FOR WHAT APPEARS TO BE JAMILAH OF HIS PENIS AND HAVE HIS BLOOD SUGAR MONITORED ON [facility]. ED Septic Shock - . Is Septic Shock (SBP<90, OR Lactate>4 mmol\L) present?: No - <6hrs of presentation: Vital Signs: Vital Signs - 8 hr 08/31/18 16:30 Temp 98.1 F HR 111 RR 17 BP 112/88 O2 Sat % 97 ED Reassessment (Disposition) - Reassessment Reassessment Condition:: Unchanged - Diagnosis Diagnosis:: Increased agitation. Diabetes Mellitus. Urinary tract infection. Jamilah of penis? sign out given to Dr. Hayes to check blood sugar. MEDICAL CLEARANCE PER DR. HAYES AFTER HE RECHECKS THE BLOOD SUGAR. PATIENT, IF MEDICALLY CLEARED, SHOULD CONTINUE TO BE TREATED [facility] HE SHOULD ALSO BE TREATED FOR WHAT APPEARS TO BE JAMILAH OF HIS PENIS AND HAVE HIS BLOOD SUGAR MONITORED ON [facility].
[2018-08-31 19:05] LABS: URINE EPITHELIAL CELLS FEW /lpf (FEW)
[2018-08-31 19:06] LABS: URINE BACTERIA 4+ /hpf (NONE SEEN); URINE RED BLOOD CELL CAST 0-2 /lpf (NONE SEEN)
[2018-08-31] MEDS ORDERED: INSULIN HUMAN REGULAR 100 UNITS/ML UNIT ONE (19:38)
[2018-08-31] MEDS ORDERED: Sodium Chloride 0.9% 1,000 ML IV ONE (19:52)
[2018-08-31] MEDS ORDERED: Piperacillin Sodium/Tazobact 3.375 gm Vial IV ONE (20:19)
[2018-08-31] MEDS ORDERED: Magnesium Hydroxide (MOM) 30 mL UDC PO PRN (21:54)
[2018-08-31] MEDS ORDERED: Fluconazole 200mg/100mL 200 MG/100 ML BAG IV SCH (23:00)
[2018-08-31 23:36] VITALS: BP 125/82
[2018-09-01] MEDS ORDERED: Piperacillin Sodium/Tazobact 3.375 gm Vial IV ONE (00:47)
[2018-09-01] MEDS: Pantoprazole 40 mg EC Tab PO SCH (06:40)
[2018-09-01] MEDS: INSULIN ASPART SLIDING SCALE 100 UNITS/ML UNIT SUBQ SCH ×4 (08:31→21:42)
[2018-09-01] MEDS ORDERED: Fluconazole 200mg/100mL 200 MG/100 ML BAG IV SCH (09:00)
[2018-09-01] MEDS: Nystatin Cream 100,000 u/gm Cream 15 gm TP SCH ×2 (11:28→16:17)
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
[2018-09-01] MEDS ORDERED: Vancomycin HCl 1.5 GM in Sodium Chloride 0.9% 500 ML IV ONE (15:00)
--- NOTE | 2018-09-01 19:50 | History & Physical ---
ADMIT DATE: PATIENT'S IDENTIFICATION: A 57-year-old male. CHIEF COMPLAINT: Sent to Emergency [facility] from [facility] for evaluation of increasing agitation. HISTORY OF PRESENT ILLNESS: The patient is well known to me from his previous admission as well as he is residing in a [facility] where I follow, brought in to the Emergency Room on 08/31/2018 for evaluation of increasing agitation. The patient was evaluated in the ER and noted to have significantly swollen scrotum and penile area with significant discomfort and noted to have urinary tract infection. The patient was advised to be admitted to medical side before the patient can transfer to Geropsych Unit. The patient was admitted by me last night and I am evaluating this patient this morning. PAST MEDICAL HISTORY: Remarkable for: 1. Diabetes. 2. Hypertension. 3. Hyperlipidemia. 4. Peripheral vascular disease. 5. History of hemorrhagic cerebrovascular accident. 6. DJD. 7. Psychotic disorder. MEDICATIONS: Lipitor, Depakote, Colace, sliding scale insulin, Levemir insulin, probiotic, lisinopril, lorazepam, metformin, multivitamin, nitro, Seroquel, sodium chloride tablet, and Ambien. ALLERGIES: The patient is not allergic to medications. SOCIAL HISTORY: The patient lives in a [facility]. No history of smoking cigarette, alcohol, or drug use. FAMILY MEDICAL HISTORY: Remarkable for diabetes. REVIEW OF SYSTEMS: The patient currently denies any headache, blurred vision, double vision, dysphagia, odynophagia, runny nose, stuffy nose, fever, chills, cough, chest pain, shortness of breath, palpitation, dizziness, nausea, vomiting, diarrhea, dysuria, hematuria, hematochezia, or melena. No seizure or syncopal episode. PHYSICAL EXAMINATION: GENERAL: The patient is alert, awake, lying in the bed, without any acute distress. VITAL SIGNS: Temperature is 99, pulse is 90, respiratory rate is 18, blood pressure is 140/80. HEENT: No facial asymmetry. Pupils equal and reactive to light. Tongue was pink and coated. Significant indentation involving the left side of the scalp noted. NECK: Supple, no JVD. No hepatojugular reflex. No lymphadenopathy, thyromegaly, or carotid bruit. HEART: Both heart sounds are regular. No S3, no S4, no murmurs. CHEST: Lung equal in expansion, no expiratory wheezing. ABDOMEN: Soft. No guarding, no rigidity. Liver and spleen not palpable. No palpable mass. EXTERNAL GENITAL: Unremarkable for significant erythema and swelling involving the scrotum and penis noted. On retracting the foreskin, there was significant erythema with some bloody discharge noted. No inguinal lymph node tenderness. EXTREMITIES: No edema or cyanosis. NEUROLOGIC: Alert, awake, follows command. AVAILABLE DIAGNOSTIC DATA: White count of 5.6, hemoglobin of 15.4, platelet count of 135. Sodium of 128, potassium of 4.2, chloride of 94, CO2 of 24.6, BUN and creatinine of 17 and 0.9, glucose of 347. Urine remarkable for more than 1000 glucose, ketones were positive, large amount of blood, nitrites were positive, 10-25 rbc's, 4+ bacteria noted. Valproic acid is 98.6. Blood cultures have been done in the Emergency Room so does urine culture. Blood cultures is growing gram-positive cocci in chain. Urine cultures remarkable for more than 100,000 colonies of Staph coagulase negative. Genital drainage remarkable for group B strep. CLINICAL IMPRESSION: 1. Scrotal cellulitis. 2. Balanitis. 3. Positive blood culture for gram-positive cocci in chain and possible streptococcal, final identification is currently pending. 4. Diabetes mellitus. 5. Hypertension. 6. Psychotic disorder 7. Coronary artery disease. PLAN: In the view of his medical history and psychiatric history, the patient will be admitted to medical floor. The patient will be placed on IV Zosyn and Diflucan for now until the patient is seen by Infectious Disease. Appropriate home medicine will be reconciled as well. Diabetes will be managed. Psych consult will be requested as well and will follow apartment leasing consultant recommendation. Follow up lab will be done. I have discussed with the patient's nurse about the diagnosis and treatment plan. All questions have been answered. JOB# [id number]
[2018-09-01] MEDS: Insulin Detemir 100 units/mL 10mL Vial SUBQ SCH (21:50)
[2018-09-02 05:33] LABS: HEMATOCRIT 43.1 % (41.0-60); HEMOGLOBIN 14.5 gm/dL (12-16); MEAN CORPUSCULAR HEMOGLOBIN 31.4 pg (26.0-30.0); MEAN CORPUSCULAR HGB CONC 33.8 pg (28.0-36.0); MEAN PLATELET VOLUME 7.5 fl; PLATELET COUNT 109 Th/cmm (150-400); RED BLOOD COUNT 4.63 Mil/cmm (4.30-5.70); RED CELL DISTRIBUTION WIDTH 13.2 % (11.5-20.0); WHITE BLOOD COUNT 4.2 Th/cmm (4.8-10.8)
[2018-09-02 05:38] LABS: ALB/GLOB RATIO 1.4 (1.0-1.8); ALBUMIN 3.4 gm/dL (4.2-5.5); ALKALINE PHOSPHATASE 52 U/L (34-104); ANION GAP 11.3 (7.0-16.0); BILIRUBIN,TOTAL 0.4 mg/dL (0.3-1.0); BUN - UREA NITROGEN 12 mg/dL (7-25); CALCIUM SERUM 8.5 mg/dL (8.6-10.3); CARBON DIOXIDE 25.6 mEq/L (21.0-31.0); CHLORIDE 98 mEq/L (98-107); CREATININE - SERUM 0.7 mg/dL (0.7-1.3); GFR AFRICAN-AMERICAN > 60.0 ml/min (>90); GFR NON AFRICAN-AMERICAN > 60.0 ml/min; GLUCOSE 160 mg/dL (70-105); POTASSIUM SERUM 3.9 mEq/L (3.5-5.1); SGOT 11 U/L (13-39); SGPT/ALT 10 U/L (7-52); SODIUM SERUM 131 mEq/L (136-145); TOTAL PROTEIN,SERUM 5.8 gm/dL (6.0-8.3)
[2018-09-02 06:34] LABS: BAND NEUTROPHILE 1 % (0-10); LYMPHOCYTE 40 % (20-50); MONOCYTE 15 % (2-10); NEUTROPHILS 44 % (40-80)
[2018-09-02] MEDS: INSULIN ASPART SLIDING SCALE 100 UNITS/ML UNIT SUBQ SCH ×4 (07:02→20:51)
[2018-09-02] MEDS: Pantoprazole 40 mg EC Tab PO SCH (07:02)
[2018-09-02] MEDS: Nystatin Cream 100,000 u/gm Cream 15 gm TP SCH (08:49)
[2018-09-02] MEDS ORDERED: Fluconazole 200mg/100mL 200 MG/100 ML BAG IV SCH (09:00)
--- NOTE | 2018-09-02 09:11 | Diagnostic Imaging Report ---
CT abdomen and pelvis without intravenous contrast Indication: Bacteremia Comparison: None, Technique: Axial images were obtained from the lung bases to the bilateral proximal femurs without IV contrast. Coronal reconstructions were made. total DLP: [id number], CTDI9.8 FINDINGS: There is elevation the right hemidiaphragm Hypoventilatory changes of the lungs are seen with focal right basal passive atelectasis/infiltrate. Assessment of solid organs is limited due to lack of IV contrast. No evidence of focal hepatic, splenic, or pancreatic lesions. No focal adrenal lesions. Nonspecific bilateral perinephric inflammatory changes are noted. Calcified right mesenteric lymph nodes are noted. There is severe distention of the urinary bladder. There is copious amount of stool throughout the colon with gas-filled loops of bowel. No appendicitis. There may be gastric wall thickening. Mild atherosclerosis is noted. No free fluid or free air. Degenerative changes of the spine and pelvis are noted. IMPRESSION Copious stool throughout the colon with gas-filled loops of bowel. Please correlate clinically for constipation. Severely distended urinary bladder. Gastric wall thickening this may be accentuated by underdistention, however, Underlying inflammatory or infiltrative process cannot be excluded. Clinical correlation is needed. Calcified mesenteric lymph nodes possibly due to old inflammatory process. Focal right basal infiltrate. Atherosclerotic vascular disease.
--- NOTE | 2018-09-02 11:13 | Infectious Disease Prog Note ---
Infectious Disease Subjective - Review of Systems Service Date: 09/02/18 Subjective: There is no new change, no fever./ Infectious Disease Objective - Results Result Diagrams: 09/02/18 04:45 09/02/18 04:45 Recent Labs: Laboratory Last Values WBC 4.2 Th/cmm (4.8-10.8) L 09/02/18 04:45 RBC 4.63 Mil/cmm (4.30-5.70) 09/02/18 04:45 Hgb 14.5 gm/dL (12-16) 09/02/18 04:45 Hct 43.1 % (41.0-60) 09/02/18 04:45 MCV 93.0 fl (80-99) 09/02/18 04:45 MCH 31.4 pg (26.0-30.0) H 09/02/18 04:45 MCHC Differential 33.8 pg (28.0-36.0) 09/02/18 04:45 RDW 13.2 % (11.5-20.0) 09/02/18 04:45 Plt Count 109 Th/cmm (150-400) L 09/02/18 04:45 MPV 7.5 fl 09/02/18 04:45 Add Manual Diff YES 09/02/18 04:45 Neutrophils % 43.1 % (40.0-80.0) 08/31/18 16:30 Band Neutrophils % 1 % (0-10) 09/02/18 04:45 Lymphocytes % 41.0 % (20.0-50.0) 08/31/18 16:30 Monocytes % 14.0 % (2.0-10.0) H 08/31/18 16:30 Eosinophils % 1.2 % (0.0-5.0) 08/31/18 16:30 Basophils % 0.7 % (0.0-2.0) 08/31/18 16:30 Neutrophils (Manual) 44 % (40-80) 09/02/18 04:45 Lymphocytes 40 % (20-50) 09/02/18 04:45 Monocytes 15 % (2-10) H 09/02/18 04:45 Sodium 131 mEq/L (136-145) L 09/02/18 04:45 Potassium 3.9 mEq/L (3.5-5.1) 09/02/18 04:45 Chloride 98 mEq/L (98-107) 09/02/18 04:45 Carbon Dioxide 25.6 mEq/L (21.0-31.0) 09/02/18 04:45 Anion Gap 11.3 (7.0-16.0) 09/02/18 04:45 BUN 12 mg/dL (7-25) 09/02/18 04:45 Creatinine 0.7 mg/dL (0.7-1.3) 09/02/18 04:45 Est GFR ( Amer) > 60.0 ml/min (>90) 09/02/18 04:45 Est GFR (Non-Af Amer) > 60.0 ml/min 09/02/18 04:45 BUN/Creatinine Ratio 17.1 09/02/18 04:45 Glucose 160 mg/dL (70-105) H 09/02/18 04:45 POC Glucose 135 MG/DL (70 - 105) H 09/02/18 05:21 Calcium 8.5 mg/dL (8.6-10.3) L 09/02/18 04:45 Phosphorus 3.2 mg/dL (2.5-5.0) 08/31/18 16:30 Magnesium 1.9 mg/dL (1.9-2.7) 08/31/18 16:30 Total Bilirubin 0.4 mg/dL (0.3-1.0) 09/02/18 04:45 AST 11 U/L (13-39) L 09/02/18 04:45 ALT 10 U/L (7-52) 09/02/18 04:45 Alkaline Phosphatase 52 U/L (34-104) 09/02/18 04:45 Total Protein 5.8 gm/dL (6.0-8.3) L 09/02/18 04:45 Albumin 3.4 gm/dL (4.2-5.5) L 09/02/18 04:45 Globulin 2.4 gm/dL 09/02/18 04:45 Albumin/Globulin Ratio 1.4 (1.0-1.8) 09/02/18 04:45 Urine Source CLEAN C 08/31/18 16:38 Urine Color YELLOW 08/31/18 16:38 Urine Clarity HAZY (CLEAR) 08/31/18 16:38 Urine pH 6.0 (4.6 - 8.0) 08/31/18 16:38 Ur Specific Louise 1.010 (1.005-1.030) 08/31/18 16:38 Urine Protein NEGATIVE mg/dL (NEGATIVE) 08/31/18 16:38 Urine Glucose (UA) >=1000 mg/dL (NEGATIVE) H 08/31/18 16:38 Urine Ketones 15 mg/dL (NEGATIVE) H 08/31/18 16:38 Urine Blood LARGE (NEGATIVE) H 08/31/18 16:38 Urine Nitrate POSITIVE (NEGATIVE) H 08/31/18 16:38 Urine Bilirubin NEGATIVE (NEGATIVE) 08/31/18 16:38 Urine Urobilinogen 1.0 E.U./dL (0.2 - 1.0) 08/31/18 16:38 Ur Leukocyte Esterase NEGATIVE (NEGATIVE) 08/31/18 16:38 Urine RBC 10-25 /hpf (0-5) H 08/31/18 16:38 Urine WBC 2-5 /hpf (0-5) 08/31/18 16:38 Ur Epithelial Cells FEW /lpf (FEW) 08/31/18 16:38 Urine Bacteria 4+ /hpf (NONE SEEN) H 08/31/18 16:38 RBC Casts 0-2 /lpf (NONE SEEN) H 08/31/18 16:38 Valproic Acid 98.6 ug/mL (50.0-100.0) 08/31/18 16:30 - Physical Exam Vitals and I&O: Vital Signs Temp 97.8 F 09/02/18 07:40 Pulse 75 09/02/18 07:40 Resp 18 09/02/18 07:41 BP 124/81 09/02/18 07:40 Pulse Ox 100 09/02/18 07:40 Intake & Output 09/01/18 09/02/18 09/02/18 18:59 06:59 18:59 Intake Total 2450 200 100 Balance 2450 200 100 Weight (lbs) 79.243 kg 78.018 kg Intake: Intake, IV Amount 600 100 100 Fluconazole 200mg/100mL 100 200 mg In 100 ml @ 200 mls/hr IV Q24H [facility] Rx#: [id number] Piperacillin Sodium/ 100 100 Tazobact 3.375 gm In Sodium Chloride 0.9% 50 ml @ 100 mls/hr IV Q6HR [facility] Rx#:[id number] Vancomycin HCl 1.5 gm In 500 Sodium Chloride 0.9% 500 ml @ 250 mls/hr IV ONCE ONE Rx#:[id number] Oral 1850 100 Other: # Voids 4 1 # Bowel Movements 1 0 Weight Source Bedscale Bedscale Active Medications: Current Medications Acetaminophen (Tylenol) 650 mg PO Q4H PRN PRN Reason: Pain (Mild) Atorvastatin Calcium (Lipitor) 40 mg PO HS [facility]; Protocol Stop: 10/31/18 20:59 Last Admin: 09/01/18 21:47 Dose: 40 mg Divalproex Sodium (Depakote Dr) 750 mg PO BID [facility]; Protocol Stop: 10/30/18 21:59 Last Admin: 09/02/18 08:42 Dose: Not Given Docusate Sodium (Colace) 100 mg PO BID [facility] Stop: 10/31/18 08:59 Last Admin: 09/02/18 08:42 Dose: Not Given Famotidine (Pepcid) 20 mg PO DAILY [facility] Stop: 10/31/18 08:59 Last Admin: 09/02/18 08:43 Dose: Not Given Piperacillin Sod/Tazobactam (Sod 3.375 gm/ Sodium Chloride) 50 mls @ 100 mls/ hr IV Q6HR [facility] Stop: 10/31/18 00:00 Last Infusion: 09/02/18 05:35 Dose: Infused Fluconazole (Diflucan) 200 mg in 100 mls @ 200 mls/hr IV Q24H [facility] Stop: 11/01/18 08:59 Last Infusion: 09/02/18 09:18 Dose: Infused Vancomycin HCl 1.25 gm/ Sodium (Chloride) 250 mls @ 165 mls/hr IV Q12H [facility] Stop: 11/01/18 08:59 Last Admin: 09/02/18 10:23 Dose: 165 mls/hr Insulin Aspart (Novolog Insulin Sliding Scale) 0 units SUBQ ACHS [facility]; Protocol Stop: 10/31/18 07:29 Last Admin: 09/02/18 07:02 Dose: Not Given Insulin Detemir (Levemir Insulin) 40 units SUBQ HS [facility]; Protocol Stop: 10/31/18 20:59 Last Admin: 09/01/18 21:50 Dose: 40 units Isosorbide Dinitrate (Isordil) 10 mg PO TID [facility] Stop: 10/31/18 08:59 Last Admin: 09/02/18 08:44 Dose: Not Given Lisinopril (Zestril) 5 mg PO DAILY [facility] Stop: 10/31/18 08:59 Last Admin: 09/02/18 08:43 Dose: Not Given Magnesium Hydroxide (Milk Of Magnesia) 30 ml PO DAILY PRN PRN Reason: Constipation Stop: 10/30/18 21:53 Metformin HCl (Glucophage) 1,000 mg PO BIDWM [facility]I Stop: 10/31/18 07:59 Last Admin: 09/02/18 08:42 Dose: Not Given Miscellaneous (Vancomycin Iv Per Pharmacy) 1 ea MC PRN [facility] Stop: 10/31/18 13:44 Nystatin (Mycostatin Cream) 1 appl TP BID [facility] Stop: 10/31/18 08:59 Last Admin: 09/02/18 08:49 Dose: 1 appl Pantoprazole Sodium (Protonix) 40 mg PO QDAC [facility] Stop: 10/31/18 07:29 Last Admin: 09/02/18 07:02 Dose: Not Given Quetiapine Fumarate (Seroquel) 100 mg PO DAILY [facility]; Protocol Stop: 10/31/18 08:59 Last Admin: 09/02/18 08:49 Dose: 100 mg Quetiapine Fumarate (Seroquel) 200 mg PO HS [facility]; Protocol Stop: 10/31/18 20:59 Last Admin: 09/01/18 21:49 Dose: 200 mg General: no acute distress, well developed, well nourished HEENT: atraumatic, normocephalic, PERRLA, EOMI Neck: supple, no thyromegaly, no lymphadenopathy Cardiovascular: S1S2, regular Lungs: clear to auscultation bilaterally, clear to percussion Abdomen: soft, no tender, no distended, no mass, no rebound Extremities: no cyanosis, no clubbing, no edema Neurological: awake, alert, oriented Skin: intact - Procedures Procedures: Procedures Procedure Code Date OTHER GROUP THERAPY 94.44 09/07/11 RECREATIONAL THERAPY 93.81 09/07/11 Infectious Disease Assmt/Plan - Assessment Assessment: 1. Streptococcus agalactiae bacteremia. 2. Balanitis. yaima infection. 3. HTN 4. DM 5. Hyperlipidemia. 6. Bacteriuria. - Plan Plan: Will change antibiotics to Rocephin 2Gm IV daily and vacno IV. Continue Difucan and add lotrimin cream apply to penis. Nutritional Asmnt/Malnutr-PDOC - Dietary Evaluation Malnutrition Findings (Please click <Entered> for more info): Nutritional Asmnt/Malnutrition Start: 09/01/18 16: 01 Text: Status: Complete Freq: Protocol: Document 09/01/18 16:01 LCHENG (Rec: 09/01/18 16:25 [email or web address]) Nutritional Asmnt/Malnutrition Patient General Information Nutritional Screening High Risk Diagnosis uncontrolled DM, UTI Pertinent Medical Hx/Surgical Hx HTn, PUD/GERD, DM, thyroid disorder, thrombocytopenia Subjective Information Glucose 347 at admission noted . Pt seen lying in bed at time of visit, alert but confused, not able to provide nutrition education. Pt has no teeth noted, but denied chewing difficulty. Per HOSPICE MUSIC THERAPY, pt consumed 100% of lunch with assist of cutting food. Pt stated no food preference, current food is good. Current Diet Order/ Nutrition Support CCHO 60gm Pertinent Medications colace, pepcid, novolog, levemir, glucophage, protonix, piperacillin, seroquel, vancomycin Pertinent Labs 09/01 POC 320-324 08/31 Na 128, gl 94, glucose 347, POC 169 Nutritional Hx/Data Height 1.68 m Height (Calculated Centimeters) 167.6 Current Weight (lbs) 79.379 kg Weight (Calculated Kilograms) 79.4 Weight (Calculated Grams) 14221.7 Body Mass Index (BMI) 28.2 Weight Status Approriate GI Symptoms GI Symptoms None Last BM not indicated Skin Integrity/Comment: intact Current %PO Good (75-100%) Estimated Nutritional Goals BEE in Kcals: Using Current wt Calories/Kcals/Kg 23-27 Kcals Calculated 0425-7621 Protein: Using Current wt Protein g/k Protein Calculated 80 Fluid: ml 1840-2160ml (1ml/kcal) Nutritional Problem 1. Problem Problem altered nutrition related labs Etiology hx of DM Signs/Symptoms: POC 320-324, glucose 347 Malnutrition Alert Is there a minimum of two criteria No selected? Query Text:Check all the applicable criteria. A minimum of two criteria are recommended for diagnosis of either severe or non-severe malnutrition. Malnutrition Related to Morbid Obesity Malnutrition related to morbid obesity No Intervention/Recommendation Comments 1. Downgrade texture to [facility] soft chopped considering pt has no teeth. 2. MD to adjust insulin regimen for optimal glycemic control. 3. Monitor PO intake and tolerance, wt, labs and skin integrity 4. F/U as high risk in 2-3 days, 09/03-09/04 Expected Outcomes/Goals Expected Outcomes/Goals 1. PO intake to meet at least 75% of nutritional needs. 2. Wt stability, skin to remain intact, labs to approach WNL.
[2018-09-02] MEDS: cefTRIAXone 2 GM in Sodium Chloride 0.9% 100 ML IV SCH (13:29)
[2018-09-02] MEDS: Fluconazole 200mg/100mL 200 MG/100 ML BAG IV SCH (15:35)
[2018-09-02] MEDS: Insulin Detemir 100 units/mL 10mL Vial SUBQ SCH (20:48)
--- NOTE | 2018-09-02 21:03 | Consultation ---
DATE OF CONSULTATION: 09/02/2018 IDENTIFYING INFORMATION: The patient is a 57-year-old male. HISTORY OF PRESENT ILLNESS: I was asked to see this patient who was originally transferred from [place] because of agitation. The patient when he was examined, found swelling in the scrotum and the penile area. The patient is a well known case. I have seen him at [place] with diagnosis of depression and psychosis. He has been on Seroquel, Depakote. The patient was not a very good historian. He has no idea why he is here, though he was able to tell me the date. He did not know where he was. He reports he is on disability because of no money, obviously unable to explain himself. He denies any current substance abuse. Denies a history of substance abuse. PAST PSYCHIATRIC HISTORY: Psychosis, agitation. MEDICAL HISTORY: As per Dr. Spears, the patient has urinary tract infection and swelling in the scrotum and infection. He is a diabetic. ALLERGIES: The patient has no known drug allergies. MEDICATIONS: He is on Seroquel and Depakote. FAMILY AND SOCIAL HISTORY: The patient is , has 1 girl, 26 years of age. 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 He is on disability, does not know why he is on disability. He has a history of using alcohol. Denies family psychotic disorder. MENTAL STATUS EXAMINATION: The patient is appropriately dressed, not well groomed. He was alert. He was unable to recognize me. He reports he sleeps well, eats well. He was very agitated and internally preoccupied, when he was sent here. He denies any intent to harm anybody. He was able to recognize the President of [facility] being [employer]. He is not sure why he is here, where he is, so his short term memory is poor. His insight about his illness is poor. Does not realize having problem. Judgment is poor with his agitated behavior. IMPRESSION: Psychosis, not otherwise specified, rule out schizoaffective disorder, history of alcohol abuse. MEDICAL DIAGNOSES: As per Dr. Spears. I recommend to continue medication. The patient can go to [facility] when medically cleared. Thank you very much for allowing me to participate in the care of this most interesting gentleman. [facility]# [id number]
--- NOTE | 2018-09-03 00:43 | Progress Notes ---
DATE: PATIENT'S IDENTIFICATION: A 57-year-old male. SUBJECTIVE: The patient seen and examined. The patient is lying in the bed. The patient has no new complaint. OBJECTIVE: VITAL SIGNS: Temperature 97.6, pulse 80, respiratory rate 18, blood pressure 135/85. HEENT: No facial asymmetry. NECK: Supple, no JVD. HEART: Regular. CHEST AND LUNG: Equal in expansion with no expiratory wheezing. ABDOMEN: Soft. No guarding or rigidity. Bowel sounds present. No palpable mass. EXTREMITIES: No edema. AVAILABLE DIAGNOSTIC DATA: Cultures positive for group B strep. Subsequent blood cultures unremarkable. Urine cultures done on admission was remarkable for more than 100,000 colony of Staphylococcus coagulase negative. CLINICAL IMPRESSION: 1. Group B strep septicemia. 2. Balanitis. 3. Scrotal and penile cellulitis. 4. Hypertension. 5. Diabetes. 6. Hyperlipidemia. 7. Degenerative joint disease. PLAN: 1. IV antibiotic as per Infectious Disease. 2. Diflucan. 3. Antifungal cream. 4. Diabetes management. 5. Antihypertensive medicine. 6. General nursing care. 7. Fall precaution. 8. Nutritional support. 9. Follow lab. 10. Follow consult and recommendation. 11. Care plan reviewed and discussed with staff. JOB# [id number]
[2018-09-03] MEDS: Pantoprazole 40 mg EC Tab PO SCH (06:35)
[2018-09-03] MEDS: INSULIN ASPART SLIDING SCALE 100 UNITS/ML UNIT SUBQ SCH ×4 (06:38→21:44)
[2018-09-03 08:28] LABS: EOSINOPHILE ABSOLUTE 0.1 Th/cmm (0.1-0.4); HEMATOCRIT 54.7 % (41.0-60); HEMOGLOBIN 18.5 gm/dL (12-16); LYMPHOCYTE ABSOLUTE 2.1 Th/cmm (1.5-3.0); MEAN CELL VOLUME 91.7 fl (80-99); MEAN CORPUSCULAR HEMOGLOBIN 30.9 pg (26.0-30.0); MEAN CORPUSCULAR HGB CONC 33.8 pg (28.0-36.0); MEAN PLATELET VOLUME 6.8 fl; MONOCYTE ABSOLUTE 1.2 Th/cmm (0.3-1.0); NEUTROPHILE ABSOLUTE 2.6 Th/cmm (1.8-8.0); PLATELET COUNT 120 Th/cmm (150-400); RED BLOOD COUNT 5.97 Mil/cmm (4.30-5.70); RED CELL DISTRIBUTION WIDTH 13.4 % (11.5-20.0)
[2018-09-03 08:45] LABS: ALB/GLOB RATIO 1.3 (1.0-1.8); ALBUMIN 4.3 gm/dL (4.2-5.5); ALKALINE PHOSPHATASE 67 U/L (34-104); ANION GAP 14.6 (7.0-16.0); BILIRUBIN,TOTAL 0.4 mg/dL (0.3-1.0); BUN - UREA NITROGEN 11 mg/dL (7-25); CALCIUM SERUM 9.7 mg/dL (8.6-10.3); CARBON DIOXIDE 26.5 mEq/L (21.0-31.0); CHLORIDE 96 mEq/L (98-107); CREATININE - SERUM 0.7 mg/dL (0.7-1.3); GFR AFRICAN-AMERICAN > 60.0 ml/min (>90); GFR NON AFRICAN-AMERICAN > 60.0 ml/min; GLUCOSE 148 mg/dL (70-105); POTASSIUM SERUM 4.1 mEq/L (3.5-5.1); SGOT 18 U/L (13-39); SGPT/ALT 14 U/L (7-52); SODIUM SERUM 133 mEq/L (136-145); TOTAL PROTEIN,SERUM 7.7 gm/dL (6.0-8.3)
[2018-09-03 09:10] LABS: EOSINOPHIL 1 % (0-5); LYMPHOCYTE 32 % (20-50); MONOCYTE 21 % (2-10); NEUTROPHILS 46 % (40-80); PLATELET ESTIMATE DECREASED PLATELETS (NORMAL)
[2018-09-03] MEDS: cefTRIAXone 2 GM in Sodium Chloride 0.9% 100 ML IV SCH (13:30)
[2018-09-03] MEDS ORDERED: Fluconazole 200mg/100mL 200 MG/100 ML BAG IV SCH (15:00)
--- NOTE | 2018-09-03 15:38 | Progress Notes ---
DATE: 09/03/2018 SUBJECTIVE: Case was discussed with staff of the patient, reviewed records. The patient continues to be not medically cleared. He is in his bed, unable to tell me the date, where he is, why he is here, confused, unable to make safe plan for self-care. He is on IV antibiotic for Infectious Disease. He is on Diflucan antifungal cream. His diabetes is being managed. He is on antihypertensive medications, fall precaution. The patient on some Depakote 750 mg twice a day as well as Seroquel 100 mg daily and 200 mg at bedtime with no side effects, no sedation, no nausea, no extrapyramidal symptoms. The patient can go to [facility] when medically cleared. Thank you very much for allowing me to participate in the care of this most interesting gentleman. JOB# [id number]
[2018-09-03] MEDS: Fluconazole 200mg/100mL 200 MG/100 ML BAG IV SCH (16:30)
--- NOTE | 2018-09-03 17:05 | Progress Notes ---
DATE: 09/03/2018 SUBJECTIVE: The patient seen and examined. OBJECTIVE: GENERAL: The patient is lying in the bed. No new complaints. VITAL SIGNS: Temperature 96.2, pulse 74, respiratory rate 18, and blood pressure 149/92. HEENT: No facial asymmetry. Indentation on the left side of the scalp noted. NECK: Supple, no JVD. HEART: Regular. CHEST: Lung equal in expansion with no expiratory wheezing. ABDOMEN: Soft. No guarding, no rigidity. Liver, spleen not palpable.. EXTREMITIES: No edema. GENITOURINARY: External genital decreased swelling of the penile and scrotal area noted with erythema at the glans penis area. AVAILABLE DIAGNOSTIC DATA: Sodium 133, potassium 4.1, chloride 96, CO2 26.5, BUN and creatinine 11 and 0.7, glucose of 148. Hemoglobin of 18.5, platelet count 120, and white count of 6. CLINICAL IMPRESSION: 1. Group B strep septicemia. 2. Balanitis. 3. Diabetes. 4. Psychotic disorder. 5. Hypertension. 6. Degenerative joint disease. 7. Coronary artery disease. PLAN: 1. IV antibiotic. 2. Local care at the glans penis area. 3. Nutritional support. 4. Psych medication. 5. Monitor blood sugar and blood pressure. 6. General nursing care. 7. Nutritional support. 8. Follow lab. 9. Follow change consultant's recommendation. 10. Care plan reviewed and discussed with staff. JOB# [id number]
[2018-09-03] MEDS ORDERED: Vancomycin HCl 1.5 GM in Sodium Chloride 0.9% 500 ML IV SCH (21:00)
[2018-09-03] MEDS: Insulin Detemir 100 units/mL 10mL Vial SUBQ SCH (21:42)
--- NOTE | 2018-09-03 21:53 | Infectious Disease Prog Note ---
Infectious Disease Subjective - Review of Systems Service Date: 09/03/18 Subjective: There is no new change, no fever. Patient had no IV access, so Levaquin one dose was given. Picc line/mid line requested. Infectious Disease Objective - Results Result Diagrams: 09/03/18 08:05 09/03/18 08:05 Recent Labs: Laboratory Last Values WBC 6.0 Th/cmm (4.8-10.8) 09/03/18 08:05 RBC 5.97 Mil/cmm (4.30-5.70) H 09/03/18 08:05 Hgb 18.5 gm/dL (12-16) 09/03/18 08:05 Hct 54.7 % (41.0-60) 09/03/18 08:05 MCV 91.7 fl (80-99) 09/03/18 08:05 MCH 30.9 pg (26.0-30.0) H 09/03/18 08:05 MCHC Differential 33.8 pg (28.0-36.0) 09/03/18 08:05 RDW 13.4 % (11.5-20.0) 09/03/18 08:05 Plt Count 120 Th/cmm (150-400) L 09/03/18 08:05 MPV 6.8 fl 09/03/18 08:05 Add Manual Diff YES 09/03/18 08:05 Neutrophils % 43.1 % (40.0-80.0) 08/31/18 16:30 Band Neutrophils % 1 % (0-10) 09/02/18 04:45 Lymphocytes % 41.0 % (20.0-50.0) 08/31/18 16:30 Monocytes % 14.0 % (2.0-10.0) H 08/31/18 16:30 Eosinophils % 1.2 % (0.0-5.0) 08/31/18 16:30 Basophils % 0.7 % (0.0-2.0) 08/31/18 16:30 Neutrophils (Manual) 46 % (40-80) 09/03/18 08:05 Lymphocytes 32 % (20-50) 09/03/18 08:05 Monocytes 21 % (2-10) H 09/03/18 08:05 Eosinophils 1 % (0-5) 09/03/18 08:05 Platelet Estimate DECREASED PLATELETS (NORMAL) 09/03/18 08:05 Sodium 133 mEq/L (136-145) L 09/03/18 08:05 Potassium 4.1 mEq/L (3.5-5.1) 09/03/18 08:05 Chloride 96 mEq/L (98-107) L 09/03/18 08:05 Carbon Dioxide 26.5 mEq/L (21.0-31.0) 09/03/18 08:05 Anion Gap 14.6 (7.0-16.0) 09/03/18 08:05 BUN 11 mg/dL (7-25) 09/03/18 08:05 Creatinine 0.7 mg/dL (0.7-1.3) 09/03/18 08:05 Est GFR ( Amer) > 60.0 ml/min (>90) 09/03/18 08:05 Est GFR (Non-Af Amer) > 60.0 ml/min 09/03/18 08:05 BUN/Creatinine Ratio 15.7 09/03/18 08:05 Glucose 148 mg/dL (70-105) H 09/03/18 08:05 POC Glucose 238 MG/DL (70 - 105) H 09/03/18 15:57 Calcium 9.7 mg/dL (8.6-10.3) 09/03/18 08:05 Phosphorus 3.2 mg/dL (2.5-5.0) 08/31/18 16:30 Magnesium 1.9 mg/dL (1.9-2.7) 08/31/18 16:30 Total Bilirubin 0.4 mg/dL (0.3-1.0) 09/03/18 08:05 AST 18 U/L (13-39) 09/03/18 08:05 ALT 14 U/L (7-52) 09/03/18 08:05 Alkaline Phosphatase 67 U/L (34-104) 09/03/18 08:05 Total Protein 7.7 gm/dL (6.0-8.3) 09/03/18 08:05 Albumin 4.3 gm/dL (4.2-5.5) 09/03/18 08:05 Globulin 3.4 gm/dL 09/03/18 08:05 Albumin/Globulin Ratio 1.3 (1.0-1.8) 09/03/18 08:05 Urine Source CLEAN C 08/31/18 16:38 Urine Color YELLOW 08/31/18 16:38 Urine Clarity HAZY (CLEAR) 08/31/18 16:38 Urine pH 6.0 (4.6 - 8.0) 08/31/18 16:38 Ur Specific [place] 1.010 (1.005-1.030) 08/31/18 16:38 Urine Protein NEGATIVE mg/dL (NEGATIVE) 08/31/18 16:38 Urine Glucose (UA) >=1000 mg/dL (NEGATIVE) H 08/31/18 16:38 Urine Ketones 15 mg/dL (NEGATIVE) H 08/31/18 16:38 Urine Blood LARGE (NEGATIVE) H 08/31/18 16:38 Urine Nitrate POSITIVE (NEGATIVE) H 08/31/18 16:38 Urine Bilirubin NEGATIVE (NEGATIVE) 08/31/18 16:38 Urine Urobilinogen 1.0 E.U./dL (0.2 - 1.0) 08/31/18 16:38 Ur Leukocyte Esterase NEGATIVE (NEGATIVE) 08/31/18 16:38 Urine RBC 10-25 /hpf (0-5) H 08/31/18 16:38 Urine WBC 2-5 /hpf (0-5) 08/31/18 16:38 Ur Epithelial Cells FEW /lpf (FEW) 08/31/18 16:38 Urine Bacteria 4+ /hpf (NONE SEEN) H 08/31/18 16:38 RBC Casts 0-2 /lpf (NONE SEEN) H 08/31/18 16:38 Vancomycin Trough 12.7 ug/mL (5-10) H 09/03/18 08:05 Valproic Acid 98.6 ug/mL (50.0-100.0) 08/31/18 16:30 - Physical Exam Vitals and I&O: Vital Signs Temp 96.8 F 09/03/18 16:00 Pulse 91 09/03/18 21:31 Resp 18 09/03/18 16:00 BP 135/99 09/03/18 21:31 Pulse Ox 99 09/03/18 16:00 Intake & Output 09/03/18 09/03/18 09/04/18 06:59 18:59 06:59 Intake Total 250 800 Balance 250 800 Weight (lbs) 78.653 kg Intake: Intake, IV Amount 250 Vancomycin HCl 1.25 gm In 250 Sodium Chloride 0.9% 250 ml @ 165 mls/hr IV Q12H [facility] Rx#:[id number] Oral 800 Other: # Voids 2 Weight Source Bedscale Active Medications: Current Medications Acetaminophen (Tylenol) 650 mg PO Q4H PRN PRN Reason: Pain (Mild) Atorvastatin Calcium (Lipitor) 40 mg PO HS [facility]; Protocol Stop: 10/31/18 20:59 Last Admin: 09/03/18 21:30 Dose: 40 mg Clotrimazole (Lotrimin 1% Cream) 1 appl TP BID [facility] Stop: 11/01/18 16:59 Last Admin: 09/03/18 16:27 Dose: 1 appl Divalproex Sodium (Depakote Dr) 750 mg PO BID [facility]; Protocol Stop: 10/30/18 21:59 Last Admin: 09/03/18 21:15 Dose: Not Given Docusate Sodium (Colace) 100 mg PO BID [facility] Stop: 10/31/18 08:59 Last Admin: 09/03/18 21:15 Dose: Not Given Famotidine (Pepcid) 20 mg PO DAILY [facility] Stop: 10/31/18 08:59 Last Admin: 09/03/18 09:43 Dose: 20 mg Fluconazole (Diflucan) 200 mg in 100 mls @ 100 mls/hr IV Q24H [facility] Stop: 11/01/18 14:59 Last Admin: 09/03/18 16:30 Dose: Not Given Ceftriaxone Sodium 2 gm/ (Sodium Chloride) 100 mls @ 100 mls/hr IV Q24H [facility] Stop: 11/01/18 12:59 Last Admin: 09/03/18 13:30 Dose: 100 mls/hr Insulin Aspart (Novolog Insulin Sliding Scale) 0 units SUBQ ACHS [facility]; Protocol Stop: 10/31/18 07:29 Last Admin: 09/03/18 21:44 Dose: 4 units Insulin Detemir (Levemir Insulin) 40 units SUBQ HS [facility]; Protocol Stop: 10/31/18 20:59 Last Admin: 09/03/18 21:42 Dose: 40 units Isosorbide Dinitrate (Isordil) 10 mg PO TID [facility] Stop: 10/31/18 08:59 Last Admin: 09/03/18 21:31 Dose: 10 mg Lisinopril (Zestril) 5 mg PO DAILY [facility] Stop: 10/31/18 08:59 Last Admin: 09/03/18 09:44 Dose: 5 mg Magnesium Hydroxide (Milk Of Magnesia) 30 ml PO DAILY PRN PRN Reason: Constipation Stop: 10/30/18 21:53 Metformin HCl (Glucophage) 1,000 mg PO BIDWM [facility] Stop: 10/31/18 07:59 Last Admin: 09/03/18 21:16 Dose: Not Given Miscellaneous (Vancomycin Iv Per Pharmacy) 1 ea [facility] PRN [facility] Stop: 10/31/18 13:44 Pantoprazole Sodium (Protonix) 40 mg PO QDAC [facility] Stop: 10/31/18 07:29 Last Admin: 09/03/18 06:35 Dose: 40 mg Quetiapine Fumarate (Seroquel) 100 mg PO DAILY [facility]; Protocol Stop: 10/31/18 08:59 Last Admin: 09/03/18 09:43 Dose: 100 mg Quetiapine Fumarate (Seroquel) 200 mg PO HS [facility]; Protocol Stop: 10/31/18 20:59 Last Admin: 09/03/18 21:32 Dose: 200 mg General: no acute distress, well developed, well nourished HEENT: atraumatic, normocephalic, PERRLA, EOMI, moist mucous membrane Neck: supple Cardiovascular: S1S2, regular Lungs: clear to auscultation bilaterally, clear to percussion Abdomen: soft, no tender, no distended, no hepatomegaly Extremities: no cyanosis, no clubbing, no edema Neurological: awake, alert, oriented Skin: intact - Procedures Procedures: Procedures Procedure Code Date OTHER GROUP THERAPY 94.44 09/07/11 RECREATIONAL THERAPY 93.81 09/07/11 Infectious Disease Assmt/Plan - Assessment Assessment: 1. Streptococcus agalactiae bacteremia. 2. Balanitis. yaima infection. 3. HTN 4. DM 5. Hyperlipidemia. 6. Bacteriuria. - Plan Plan: Will change antibiotics to Rocephin 2Gm IV daily and dc vacno IV. gave one dose of levaquin as rescue meds, ( IV access not available). Continue Difucan and add lotrimin cream apply to penis. Nutritional Asmnt/Malnutr-PDOC - Dietary Evaluation Malnutrition Findings (Please click <Entered> for more info): Nutritional Asmnt/Malnutrition Start: 09/01/18 16: 01 Text: Status: Complete Freq: Protocol: Document 09/01/18 16:01 LCHENG (Rec: 09/01/18 16:25 [email or web address] [email or web address]) Nutritional Asmnt/Malnutrition Patient General Information Nutritional Screening High Risk Diagnosis uncontrolled DM, UTI Pertinent Medical Hx/Surgical Hx HTn, PUD/GERD, DM, thyroid disorder, thrombocytopenia Subjective Information Glucose 347 at admission noted . Pt seen lying in bed at time of visit, alert but confused, not able to provide nutrition education. Pt has no teeth noted, but denied chewing difficulty. Per DRILL OPERATOR, pt consumed 100% of lunch with assist of cutting food. Pt stated no food preference, current food is good. Current Diet Order/ Nutrition Support CCHO 60gm Pertinent Medications colace, pepcid, novolog, levemir, glucophage, protonix, piperacillin, seroquel, vancomycin Pertinent Labs 09/01 POC 320-324 08/31 Na 128, gl 94, glucose 347, POC 169 Nutritional Hx/Data Height 1.68 m Height (Calculated Centimeters) 167.6 Current Weight (lbs) 79.379 kg Weight (Calculated Kilograms) 79.4 Weight (Calculated Grams) 78921.7 Body Mass Index (BMI) 28.2 Weight Status Approriate GI Symptoms GI Symptoms None Last BM not indicated Skin Integrity/Comment: intact Current %PO Good (75-100%) Estimated Nutritional Goals BEE in Kcals: Using Current wt Calories/Kcals/Kg 23-27 Kcals Calculated 3761-3391 Protein: Using Current wt Protein g/k Protein Calculated 80 Fluid: ml 1840-2160ml (1ml/kcal) Nutritional Problem 1. Problem Problem altered nutrition related labs Etiology hx of DM Signs/Symptoms: POC 320-324, glucose 347 Malnutrition Alert Is there a minimum of two criteria No selected? Query Text:Check all the applicable criteria. A minimum of two criteria are recommended for diagnosis of either severe or non-severe malnutrition. Malnutrition Related to Morbid Obesity Malnutrition related to morbid obesity No Intervention/Recommendation Comments 1. Downgrade texture to mech soft chopped considering pt has no teeth. 2. MD to adjust insulin regimen for optimal glycemic control. 3. Monitor PO intake and tolerance, wt, labs and skin integrity 4. F/U as high risk in 2-3 days, 09/03-09/04 Expected Outcomes/Goals Expected Outcomes/Goals 1. PO intake to meet at least 75% of nutritional needs. 2. Wt stability, skin to remain intact, labs to approach WNL.
[2018-09-04] MEDS: INSULIN ASPART SLIDING SCALE 100 UNITS/ML UNIT SUBQ SCH ×3 (07:24→16:56)
[2018-09-04] MEDS: Pantoprazole 40 mg EC Tab PO SCH (07:24)
[2018-09-04 07:33] LABS: INR 0.99 (0.5-1.4); PROTHROMBIN TIME (TEST) 10.3 SECONDS (9.5-11.5)
[2018-09-04] MEDS: cefTRIAXone 2 GM in Sodium Chloride 0.9% 100 ML IV SCH (12:54)
--- NOTE | 2018-09-04 14:42 | Infectious Disease Prog Note ---
Infectious Disease Subjective - Review of Systems Service Date: 09/04/18 Subjective: There is no new change, no fever. PICC line placed. Infectious Disease Objective - Results Result Diagrams: 09/03/18 08:05 09/03/18 08:05 Recent Labs: Laboratory Last Values WBC 6.0 Th/cmm (4.8-10.8) 09/03/18 08:05 RBC 5.97 Mil/cmm (4.30-5.70) H 09/03/18 08:05 Hgb 18.5 gm/dL (12-16) 09/03/18 08:05 Hct 54.7 % (41.0-60) 09/03/18 08:05 MCV 91.7 fl (80-99) 09/03/18 08:05 MCH 30.9 pg (26.0-30.0) H 09/03/18 08:05 MCHC Differential 33.8 pg (28.0-36.0) 09/03/18 08:05 RDW 13.4 % (11.5-20.0) 09/03/18 08:05 Plt Count 120 Th/cmm (150-400) L 09/03/18 08:05 MPV 6.8 fl 09/03/18 08:05 Add Manual Diff YES 09/03/18 08:05 Neutrophils % 43.1 % (40.0-80.0) 08/31/18 16:30 Band Neutrophils % 1 % (0-10) 09/02/18 04:45 Lymphocytes % 41.0 % (20.0-50.0) 08/31/18 16:30 Monocytes % 14.0 % (2.0-10.0) H 08/31/18 16:30 Eosinophils % 1.2 % (0.0-5.0) 08/31/18 16:30 Basophils % 0.7 % (0.0-2.0) 08/31/18 16:30 Neutrophils (Manual) 46 % (40-80) 09/03/18 08:05 Lymphocytes 32 % (20-50) 09/03/18 08:05 Monocytes 21 % (2-10) H 09/03/18 08:05 Eosinophils 1 % (0-5) 09/03/18 08:05 Platelet Estimate DECREASED PLATELETS (NORMAL) 09/03/18 08:05 PT 10.3 SECONDS (9.5-11.5) 09/04/18 07:16 INR 0.99 (0.5-1.4) 09/04/18 07:16 PTT (Actin FS) 24.5 SECONDS (26.0-38.0) L 09/04/18 07:16 Sodium 133 mEq/L (136-145) L 09/03/18 08:05 Potassium 4.1 mEq/L (3.5-5.1) 09/03/18 08:05 Chloride 96 mEq/L (98-107) L 09/03/18 08:05 Carbon Dioxide 26.5 mEq/L (21.0-31.0) 09/03/18 08:05 Anion Gap 14.6 (7.0-16.0) 09/03/18 08:05 BUN 11 mg/dL (7-25) 09/03/18 08:05 Creatinine 0.7 mg/dL (0.7-1.3) 09/03/18 08:05 Est GFR ( Amer) > 60.0 ml/min (>90) 09/03/18 08:05 Est GFR (Non-Af Amer) > 60.0 ml/min 09/03/18 08:05 BUN/Creatinine Ratio 15.7 09/03/18 08:05 Glucose 148 mg/dL (70-105) H 09/03/18 08:05 POC Glucose 304 MG/DL (70 - 105) H 09/04/18 11:05 Calcium 9.7 mg/dL (8.6-10.3) 09/03/18 08:05 Phosphorus 3.2 mg/dL (2.5-5.0) 08/31/18 16:30 Magnesium 1.9 mg/dL (1.9-2.7) 08/31/18 16:30 Total Bilirubin 0.4 mg/dL (0.3-1.0) 09/03/18 08:05 AST 18 U/L (13-39) 09/03/18 08:05 ALT 14 U/L (7-52) 09/03/18 08:05 Alkaline Phosphatase 67 U/L (34-104) 09/03/18 08:05 Total Protein 7.7 gm/dL (6.0-8.3) 09/03/18 08:05 Albumin 4.3 gm/dL (4.2-5.5) 09/03/18 08:05 Globulin 3.4 gm/dL 09/03/18 08:05 Albumin/Globulin Ratio 1.3 (1.0-1.8) 09/03/18 08:05 Urine Source CLEAN C 08/31/18 16:38 Urine Color YELLOW 08/31/18 16:38 Urine Clarity HAZY (CLEAR) 08/31/18 16:38 Urine pH 6.0 (4.6 - 8.0) 08/31/18 16:38 Ur Specific [place] 1.010 (1.005-1.030) 08/31/18 16:38 Urine Protein NEGATIVE mg/dL (NEGATIVE) 08/31/18 16:38 Urine Glucose (UA) >=1000 mg/dL (NEGATIVE) H 08/31/18 16:38 Urine Ketones 15 mg/dL (NEGATIVE) H 08/31/18 16:38 Urine Blood LARGE (NEGATIVE) H 08/31/18 16:38 Urine Nitrate POSITIVE (NEGATIVE) H 08/31/18 16:38 Urine Bilirubin NEGATIVE (NEGATIVE) 08/31/18 16:38 Urine Urobilinogen 1.0 E.U./dL (0.2 - 1.0) 08/31/18 16:38 Ur Leukocyte Esterase NEGATIVE (NEGATIVE) 08/31/18 16:38 Urine RBC 10-25 /hpf (0-5) H 08/31/18 16:38 Urine WBC 2-5 /hpf (0-5) 08/31/18 16:38 Ur Epithelial Cells FEW /lpf (FEW) 08/31/18 16:38 Urine Bacteria 4+ /hpf (NONE SEEN) H 08/31/18 16:38 RBC Casts 0-2 /lpf (NONE SEEN) H 08/31/18 16:38 Vancomycin Trough 12.7 ug/mL (5-10) H 09/03/18 08:05 Valproic Acid 98.6 ug/mL (50.0-100.0) 08/31/18 16:30 - Physical Exam Vitals and I&O: Vital Signs Temp 98.1 F 09/04/18 11:05 Pulse 98 09/04/18 13:16 Resp 19 09/04/18 11:05 BP 118/74 09/04/18 13:16 Pulse Ox 98 09/04/18 11:05 Intake & Output 09/03/18 09/04/18 09/04/18 18:59 06:59 18:59 Intake Total 900 200 Balance 900 200 Weight (lbs) 78.653 kg 78.97 kg Intake: Intake, IV Amount 100 [id number] 2 gm In 100 Sodium Chloride 0.9% 100 ml @ 100 mls/hr IV Q24H [facility] Rx#:[id number] Oral 800 200 Other: # Voids 2 2 # Bowel Movements 0 Weight Source Bedscale Bedscale Active Medications: Current Medications Acetaminophen (Tylenol) 650 mg PO Q4H PRN PRN Reason: Pain (Mild) Atorvastatin Calcium (Lipitor) 40 mg PO HS [facility]; Protocol Stop: 10/31/18 20:59 Last Admin: 09/03/18 21:30 Dose: 40 mg Clotrimazole (Lotrimin 1% Cream) 1 appl TP BID [facility] Stop: 11/01/18 16:59 Last Admin: 09/04/18 08:53 Dose: 1 appl Divalproex Sodium (Depakote Dr) 750 mg PO BID [facility]; Protocol Stop: 10/30/18 21:59 Last Admin: 09/04/18 08:51 Dose: 750 mg Docusate Sodium (Colace) 100 mg PO BID [facility] Stop: 10/31/18 08:59 Last Admin: 09/04/18 08:50 Dose: 100 mg Famotidine (Pepcid) 20 mg PO DAILY [facility] Stop: 10/31/18 08:59 Last Admin: 09/04/18 08:50 Dose: 20 mg Fluconazole (Diflucan) 200 mg PO DAILY [facility] Stop: 11/03/18 14:59 Last Admin: 09/04/18 14:22 Dose: 200 mg Ceftriaxone Sodium 2 gm/ (Sodium Chloride) 100 mls @ 100 mls/hr IV Q24H [facility] Stop: 11/01/18 12:59 Last Admin: 09/04/18 12:54 Dose: 100 mls/hr Insulin Aspart (Novolog Insulin Sliding Scale) 0 units SUBQ ACHS [facility]; Protocol Stop: 10/31/18 07:29 Last Admin: 09/04/18 11:19 Dose: 8 units Insulin Detemir (Levemir Insulin) 40 units SUBQ HS [facility]; Protocol Stop: 10/31/18 20:59 Last Admin: 09/03/18 21:42 Dose: 40 units Isosorbide Dinitrate (Isordil) 10 mg PO TID [facility] Stop: 10/31/18 08:59 Last Admin: 09/04/18 13:16 Dose: 10 mg Lisinopril (Zestril) 5 mg PO DAILY [facility] Stop: 10/31/18 08:59 Last Admin: 09/04/18 08:50 Dose: 5 mg Magnesium Hydroxide (Milk Of Magnesia) 30 ml PO DAILY PRN PRN Reason: Constipation Stop: 10/30/18 21:53 Metformin HCl (Glucophage) 1,000 mg PO BIDWM [facility] Stop: 10/31/18 07:59 Last Admin: 09/04/18 07:24 Dose: 1,000 mg Pantoprazole Sodium (Protonix) 40 mg PO QDAC [facility] Stop: 10/31/18 07:29 Last Admin: 09/04/18 07:24 Dose: 40 mg Quetiapine Fumarate (Seroquel) 100 mg PO DAILY [facility]; Protocol Stop: 10/31/18 08:59 Last Admin: 09/04/18 08:49 Dose: 100 mg Quetiapine Fumarate (Seroquel) 200 mg PO HS [facility]; Protocol Stop: 10/31/18 20:59 Last Admin: 09/03/18 21:32 Dose: 200 mg General: no acute distress, well developed, well nourished HEENT: atraumatic, normocephalic, PERRLA Neck: supple, no thyromegaly Cardiovascular: S1S2, regular Lungs: clear to auscultation bilaterally, clear to percussion - Procedures Procedures: Procedures Procedure Code Date OTHER GROUP THERAPY 94.44 09/07/11 RECREATIONAL THERAPY 93.81 09/07/11 Infectious Disease Assmt/Plan - Assessment Assessment: 1. Streptococcus agalactiae bacteremia. 2. Balanitis. yaima infection. 3. HTN 4. DM 5. Hyperlipidemia. 6. Bacteriuria. - Plan Plan: Will change antibiotics to Rocephin 2Gm IV daily x 2 weeks from now. Continue Difucan and lotrimin cream apply to penis. Nutritional Asmnt/Malnutr-PDOC - Dietary Evaluation Malnutrition Findings (Please click <Entered> for more info): Nutritional Asmnt/Malnutrition Start: 09/01/18 16: 01 Text: Status: Complete Freq: Protocol: Document 09/01/18 16:01 LCMINDYG (Rec: 09/01/18 16:25 [email or web address] [email or web address]) Nutritional Asmnt/Malnutrition Patient General Information Nutritional Screening High Risk Diagnosis uncontrolled DM, UTI Pertinent Medical Hx/Surgical Hx HTn, PUD/GERD, DM, thyroid disorder, thrombocytopenia Subjective Information Glucose 347 at admission noted . Pt seen lying in bed at time of visit, alert but confused, not able to provide nutrition education. Pt has no teeth noted, but denied chewing difficulty. Per REFRIGERATION UNIT REPAIRER, pt consumed 100% of lunch with assist of cutting food. Pt stated no food preference, current food is good. Current Diet Order/ Nutrition Support CCHO 60gm Pertinent Medications colace, pepcid, novolog, levemir, glucophage, protonix, piperacillin, seroquel, vancomycin Pertinent Labs 09/01 POC 320-324 08/31 Na 128, gl 94, glucose 347, POC 169 Nutritional Hx/Data Height 1.68 m Height (Calculated Centimeters) 167.6 Current Weight (lbs) 79.379 kg Weight (Calculated Kilograms) 79.4 Weight (Calculated Grams) 52010.7 Body Mass Index (BMI) 28.2 Weight Status Approriate GI Symptoms GI Symptoms None Last BM not indicated Skin Integrity/Comment: intact Current %PO Good (75-100%) Estimated Nutritional Goals BEE in Kcals: Using Current wt Calories/Kcals/Kg 23-27 Kcals Calculated 8170-7231 Protein: Using Current wt Protein g/k Protein Calculated 80 Fluid: ml 1840-2160ml (1ml/kcal) Nutritional Problem 1. Problem Problem altered nutrition related labs Etiology hx of DM Signs/Symptoms: POC 320-324, glucose 347 Malnutrition Alert Is there a minimum of two criteria No selected? Query Text:Check all the applicable criteria. A minimum of two criteria are recommended for diagnosis of either severe or non-severe malnutrition. Malnutrition Related to Morbid Obesity Malnutrition related to morbid obesity No Intervention/Recommendation Comments 1. Downgrade texture to mech soft chopped considering pt has no teeth. 2. MD to adjust insulin regimen for optimal glycemic control. 3. Monitor PO intake and tolerance, wt, labs and skin integrity 4. F/U as high risk in 2-3 days, 09/03-11/2 Expected Outcomes/Goals Expected Outcomes/Goals 1. PO intake to meet at least 75% of nutritional needs. 2. Wt stability, skin to remain intact, labs to approach WNL.
--- NOTE | 2018-09-04 16:12 | Progress Notes ---
DATE: 09/04/2018 SUBJECTIVE: Case was discussed with staff of the patient, reviewed records. The patient has to be on IV antibiotic for a few days, so he can really come to [facility] because can take him with IV antibiotic; however, the doctor would like to stay and send him to the SNF facility where he would be supervised. He is not acting in anyway dangerous here. He is not needing any special supervision. So at this point, the [facility] can be monitored at the [facility]. Thank you very much for allowing me to participate in the care of this most interesting gentleman. The patient denies any intent to harm himself and that he is not acting anyway dangerous ____. JOB# [id number]
--- NOTE | 2018-09-05 03:38 | Progress Notes ---
DATE: PATIENT'S IDENTIFICATION: A 57-year-old male. SUBJECTIVE: The patient was seen and examined. The patient is lying in the bed. No new event. PICC line has been requested. PHYSICAL EXAMINATION: VITAL SIGNS: On today's exam, temperature 98.6, pulse is 70, respiratory rate is 18, blood pressure is 130/85. SKIN: Warm to touch. HEENT: Poor dentition. NECK: Supple, no JVD. HEART: Regular, no murmur. CHEST AND LUNGS: Equal in expansion, no expiratory wheezing. ABDOMEN: Soft. EXTREMITIES: No edema. CLINICAL IMPRESSION: 1. Group B strep septicemia. 2. Balanitis. 3. Diabetes. 4. Psychotic disorder. 5. Hypertension. 6. Poor intravenous access. PLAN: 1. Proceed with PICC line. 2. IV antibiotic. 3. The patient can go to lower level of care with IV antibiotic for continuation of currently prescribed treatment plan. 4. Continue to monitor blood sugar and blood pressure. 5. PT, OT, fall precaution. 6. General nursing care. 7. Care plan reviewed and discussed with staff. JOB# [id number]
--- NOTE | 2018-09-07 14:05 | Cardiology ---
09/04/2018 PATIENT OF: Dr. Spears. M-MODE ECHOCARDIOGRAM: Mitral valve, anterior leaflet of mitral valve shows normal excursion, EF velocity. Posterior leaflet of mitral valve shows normal excursion. Left ventricular posterior wall shows increased thickness, normal excursion. Interventricular septum shows increased thickness, normal excursion, hypertrophy of the left ventricle, ejection fraction 67%. Left atrium normal. Aortic root shows normal dimension, normal excursion of aortic leaflets. CONCLUSION: Hypertrophy of the left ventricle, ejection fraction 67%. 2D ECHO: Long axis view showed normal sized left ventricle with hypertrophy of the left ventricle. Left atrium normal. Aortic root shows normal dimension, normal excursion of aortic leaflets. Short axis view of mitral valve normal. Short axis view of aortic valve normal. Apical four chamber view showed normal sized left ventricle, left atrium, right ventricle, right atrium, tricuspid and mitral valve. Ejection fraction 67%. CONCLUSION: Hypertrophy of the left ventricle, ejection fraction 67%. Doppler study showed trace tricuspid regurgitation, right ventricular systolic pressure 22 mmHg. CONCLUSION: Moderate tricuspid regurgitation, hypertrophy of the left ventricle, ejection fraction 67%. JOB# [id number]
== END 2018-09-04 19:15 | DRG 872 ==
LOC: ER 16:07 → MSI 20:30
PROVIDERS: ADMIT Internal Medicine; ATTEND Internal Medicine
PROC: 0XH833Z Insertion of Infusion Device into Right Upper Arm, Percutaneous Approach (ICD-10-PCS; principal; 2018-09-04)
DX: A40.1 Sepsis due to streptococcus, group B (principal); N39.0 Urinary tract infection, site not specified; N49.2 Inflammatory disorders of scrotum; I25.10 Atherosclerotic heart disease of native coronary artery without angina pectoris; I10 Essential (primary) hypertension; E78.5 Hyperlipidemia, unspecified; M19.90 Unspecified osteoarthritis, unspecified site; F29 Unspecified psychosis not due to a substance or known physiological condition; K21.9 Gastro-esophageal reflux disease without esophagitis; K27.9 Peptic ulcer, site unspecified, unspecified as acute or chronic, without hemorrhage or perforation; F32.9 Major depressive disorder, single episode, unspecified; G40.909 Epilepsy, unspecified, not intractable, without status epilepticus; E11.51 Type 2 diabetes mellitus with diabetic peripheral angiopathy without gangrene; Z83.3 Family history of diabetes mellitus; Z79.4 Long term (current) use of insulin; B37.42 Candidal balanitis
CPT/HCPCS: 36415-UA; 80053-TC; 80164-TC; 80202-TC; 81001-TC; 82948-90; 83036-90; 83735-TC; 84100-TC; 85007-TC; 85025-TC; 85610-TC; 87070-90; 87086-90; 96375; J0696; J1450; J1815; J2543; J3370; J3480; J7030; J7040; Z7610